=== PATIENT | female | born 1995 | race African-American/Black ===

== ENCOUNTER 2019-02-24 19:19 | Outpatient (CLI) | payer OTHER ==
[~2019-02-24] VITALS: Ht 175.3 cm; Wt 72.2 kg
[2019-02-24 20:58] VITALS: BP 112/63
[2019-02-24 22:12] LABS: APPEARANCE, URINE CLEAR (CLEAR); BACTERIA, URINE AUTO NEGATIVE (NEGATIVE); BILIRUBIN, URINE AUTO NEGATIVE (NEGATIVE); BLOOD, URINE BLOOD NEGATIVE (NEGATIVE); COLOR, URINE YELLOW (YELLOW); GLUCOSE, URINE (UA) AUTO NEGATIVE (NEGATIVE); KETONE, URINE AUTO NEGATIVE (NEGATIVE); LEUKOCYTE ESTERASE, URINE AUTO NEGATIVE (NEGATIVE); MUCUS, URINE SMALL (NEGATIVE); NITRITE, URINE AUTO NEGATIVE (NEGATIVE); PROTEIN, URINE AUTO NEGATIVE (NEGATIVE); RBC, URINE AUTO 0 /HPF (0-3); SPECIFIC GRAVITY URINE AUTO 1.015 (1.002-1.035); SQUAMOUS EPITHELIAL CELL UR AU 1 /HPF (0-6); UROBILINOGEN, URINE AUTO 0.2 mg/dL (0.0-2.0); WBC, URINE AUTO 2 /HPF (0-3)
[2019-02-24 22:36] VITALS: BP 110/62
[2019-02-24] MEDS ORDERED: FLUCONAZOLE 50MG TABLET PO ONE (22:45)
--- NOTE | 2019-02-24 22:58 | IPNPDOC ---
Text Note Date of Service The patient was seen on 02/24/19. NOTE OB Considerations: - Transfer of Care from [facility] [place] at 31wks - Anemia: on PO Fe, needs CBC Silva is a 24yo at 31+5wks by 1st trimester US (SHERON 23Apr2019) presents for uterine cramping. She reports that she and her family have arrived her on the Jan and have scheduled intake tomorrow with first provider appointment on FridaySep. She reports that she started having irregular cramping today. Worse after walking. She reports that she has had a couple of bottles of water today. She reports she has felt cramping irregularly but q2- 11min. She reports some mucous-white discharge, denies vaginal itching, recent intercourse, dysuria, vaginal bleeding, LOF, or fever. Reports active movement. OBH: G1: 2016, term, 6lbs 8oz G2: Current GYNH: Denies STIs, abnormal paps NKDA PMH: Denies PSH: Denies Meds: PNV, Fe SoH: , former smoker (quit with ), denies alcohol, drugs FH: MGM: DM, HTN, Breast and Colon Cancer, Maternal Aunt: Breast Cancer, DM, HTN, Paternal Grandmother: DM, Paternal Aunt: Breast Cancer, Paternal Grandfather: Colon Cancer VS: Reviewed, Afebrile, normotensive, nontachycardic GEN: WNWD, NAD ABD: Soft, Gravid, NT EXT: No edema SSE: Multip appearing external cervical os, small amount thick white discharge, no pooling, no bleeding, no lesions DCE: 06/26/-3, repeat after 3 hours, unchanged Microscopy: Wet prep/TALITA No clue cells, mod yeast, no trich FHR: 140bpm, moderate variability, + accelerations (10x10), - decelerations [place]: uterine irritability A/P: SIUP at 31wks with uterine irritability/cramping. NST reactive for gestational age, toco notable for uterine irritability. DCE unchanged over 3 hours, GC pending, fFN negative, UA negative, Microscopy and Exam suggestive of yeast infection. Will treat with Diflucan 150mg x1. She has close follow up and intake scheduled. - Discussed strict return and PTL precautions - Discussed Kick counts - Encouraged hydration - GC and UCx pending - Keep all scheduled follow ups All questions answered to patient's apparent satisfaction. Tania Araiza DO VSEstelle, I+O VS, [place], I+O Vital Signs Date Time Temp Pulse Resp B/P (MAP) Pulse Ox O2 Delivery O2 Flow Rate FiO2 02/24/19 20:58 98.3 81 112/63 (79) TANIA ARAIZA DO Feb 24, 2019 22:58
[2019-02-24 23:42] LABS: CHLAMYDIA DNA AMPLIFICATION NEGATIVE (NEGATIVE); GC DNA AMPLIFICATION NEGATIVE (NEGATIVE)
== END 2019-02-24 22:43 | disposition home or self-care (01) ==
LOC: M LDO 19:19
PROVIDERS: ATTEND Obstetrics & Gynecology
DX: O62.2 Other uterine inertia (principal); O47.03 False labor before 37 completed weeks of gestation, third trimester; Z3A.31 31 weeks gestation of pregnancy
CPT/HCPCS: 59025; 81001; 82731; 87086; 87491; 87591; G0378; G0463

== ENCOUNTER 2019-03-28 16:20 | Outpatient (CLI) | payer OTHER ==
[~2019-03-28] VITALS: Ht 175.3 cm; Wt 76.6 kg
[2019-03-28 16:36] VITALS: BP 111/64
[2019-03-28] MEDS ORDERED: IRON325T2 PO (16:58)
[2019-03-28] MEDS ORDERED: PRENTAB9 PO (16:58)
[2019-03-28 17:22] VITALS: BP 107/62
[2019-03-28 18:43] VITALS: BP 115/58
--- NOTE | 2019-03-28 20:47 | HPE ---
DATE OF ADMISSION: 03/28/2019 24-year-old, 2, para 1, LMP 07/12/2016, EDC 04/18/2019 at 37 weeks of gestation, history of contractions and GBS status unknown. PAST HISTORY: September 2015, female, spontaneous vaginal delivery, 6 pounds 8 ounces, uncomplicated. She has a late transfer of care at 33 weeks from [place]. 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 Labs are O+, HIV negative, hepatitis negative, RPR negative, rubella immune. Pap normal. Urine was positive and she was treated. Gonorrhea and chlamydia are negative. 1-hour glucose is not available and the rest of her labs are not available. Blood pressure today is 111/64, respirations 18, pulse 97, temperature 98.7. Urine 1.005, pH 7, negative. On examination, no distress. Symphysis fundus height is 37. No vaginal bleeding or loss. Recently treated a month ago for yeast with Diflucan. Presently, vertex, OA, fingertip, posterior, thick, -3 station. Category one strip. Plan is to give her precautions, keep her here for an hour, if there is no change to send her home. The patient has an appointment 04/05/2019, encouraged to keep that appointment. Should things change, such as decreased movement, premature rupture of membranes or bleeding, she is to return at any time and bring her OB passport with her . Patient and expressed understanding of plan of care. Rest of the examination is unremarkable. Normocephalic, atraumatic. Neck full range of motion. Pupils equal and reactive to light. Distal pulses are symmetric. No evidence of DVT, PE or superficial phlebitis. Chest is clear bilaterally to bases. No wheezes or rhonchi. No CVA tenderness. Abdomen is soft. Uterus is appropriate. Symphysis fundus height. Four quadrant bowel sounds are noted. No rashes, lesions or pruritus. No arthralgia or myalgia. No complaint of joint pain. No complaint of cough, wheeze, shortness of breath or dyspnea on exertion. No nausea, vomiting, diarrhea or constipation. No other issues are noted. Good support at home. In summary, we have a term gestation with uterine irritability, possible Demetrius Luke contractions, discharged undelivered, to followup in the office 04/05/2019. All questions were answered.
== END 2019-03-28 19:15 | disposition home or self-care (01) ==
LOC: M LDO 16:20
PROVIDERS: ATTEND Obstetrics & Gynecology
DX: O62.2 Other uterine inertia (principal); O47.1 False labor at or after 37 completed weeks of gestation; Z3A.37 37 weeks gestation of pregnancy
CPT/HCPCS: 59025; G0378; G0463

== ENCOUNTER 2019-04-05 03:49 | Outpatient (CLI) | payer OTHER ==
[~2019-04-05 03:49] MED LIST: IRON325T2 PO; PRENTAB9 PO
--- NOTE | 2019-04-05 11:30 | HPE ---
DATE OF ADMISSION: 04/05/2019 24-year-old 2, para 1, last menstrual period (LMP) 07/12/2016, estimated date of confinement (EDC) 04/18/2019. 38 and 1 week of gestation, contractions 6-9 minutes apart. No vaginal loss or bleeding. RISK FACTORS: She is a transfer in at 33 weeks. Fragile X carrier, anemia and Glucose tolerance is unknown. PAST HISTORY: In September 2015, after spontaneous labor, spontaneous vaginal delivery of female 6 pounds 8 ounces. No epidural. LABS: O+, HIV negative, hep negative, RPR negative, rubella immune. Pap normal. Urine was positive, test of cure was negative. Treatment was given. Gonorrhea and chlamydia were negative. GBS is negative. 1-hour glucose was unknown. Blood pressure 113/61, respirations 18, pulse 77, temperature 98.3. Urine is 1.010, pH 6 negative and +1 for protein. PHYSICAL EXAMINATION: No distress. Category one strip. Symphysis fundus height is 38. Four-quadrant bowel sounds. Vertex presenting 2 cm posterior, thick, -3 station. No vaginal loss or bleeding or show. The patient was given precautions regarding labor, also rehydration. The fact that she chews ice because she is anemic does not help to hydrate her and she was encouraged to drink fluids. The patient has an appointment to followup this morning 0745 with . The patient was discharged undelivered.
== END 2019-04-05 05:52 | disposition home or self-care (01) ==
LOC: M LDO 03:49
PROVIDERS: ATTEND Obstetrics & Gynecology
DX: O47.1 False labor at or after 37 completed weeks of gestation (principal); Z3A.38 38 weeks gestation of pregnancy
CPT/HCPCS: 59025; G0378; G0463

== ENCOUNTER 2019-04-06 08:24 | Inpatient (IN) | payer OTHER ==
[2019-04-06] VITALS (14 sets, daily range): BP systolic 94–136; BP diastolic 56–84
[~2019-04-06] VITALS: Ht 170.2 cm; Wt 77.5 kg
[2019-04-06] MEDS ORDERED: LACTATED RINGER'S 1000 ML IV STA (08:30)
[2019-04-06 09:40] LABS: HEMOGLOBIN 8.1 g/dl (12.0-15.5); MEAN CORPUSCULAR HEMOGLOBIN 28.1 pg (27.0-33.0); MEAN CORPUSCULAR VOLUME 93.8 fl (80.0-96.0); PLATELET COUNT, AUTOMATED 214 10^3/uL (150-450); RED BLOOD COUNT 2.88 10^6/uL (4.00-5.40); WHITE BLOOD COUNT 4.6 10^3/uL (4.0-10.0)
--- NOTE | 2019-04-06 12:14 | HPEPDOC ---
Obstetrical History & Physical General Date of Admission Apr 06, 2019 at 08:54 History of Present Illness Ms. Simon is a 24yo at 38+2wks; she presents to LND with c/o ROM of clear fluid this AM at 0130. She reports +FM, some intermittent contractions; she denies VB. Ms. Simon is carrier of Fragile X syndrome; her is complicated by anemia. She is GBS Negative, HIV negative, blood type O Positive. Chief Complaint: LOF, term Information Provided By: Patient Age: 24 : 2 Term: 1 Pre-term: 0 Abortions: 0 Livin Care Care: Good Care Dating Final EDC: Apr 18, 2019 Final EDC for Daily Update: Apr 18, 2019 Final EDC by: LMP, 1st trimester (US) (11+1wks on 09/08/2018) Antepartum Course Height (inches): 69 Pre- weight (lbs.): 127 Past Medical History Past Obstetrical History : Past Obstetrical History: Multigravida Date of Delivery: Sep 23, 2015 Gestation: 38 Type of Delivery: Spontaneous Vaginal Del. Weight of (grams): 2948 Complications: No MEDICAL RECORDS CUSTODIAN History: No pertinent history Past Medical History Medical History Anemia Carrier Fragile X Syndrome Surgical History: Thor teeth Family History Significant Family History: No pertinent family hx Social History Marital Status: Single Family situation: Spouse/partner home Psychosocial History: No pertinent psych hx * Smoker: non-smoker Alcohol: Denies Drugs: denies Imunizations Tdap status: current Allergies Coded Allergies: No Known Allergies (Verified Allergy, Unknown, 02/24/19) Medications Scheduled Ferrous Sulfate (Iron) 325 Mg Tablet, 1 TAB PO DAILY No.137/Iron/Folic Acd ( Vitamin Tablet) 1 Each Tablet, 1 TAB PO DAILY Physical Examination Physical Examination GENERAL: Alert and oriented times three. BREAST: . ABDOMEN: Gravid and non-tender to touch. FETUS: VTX by SVE; EFW 2700 by Allan. HEART RATE: Regular rate.. LUNGS: No labored breathing. EXTREMITIES: No edema. Vital Signs/I&O O: VSS, Afebrile FHR 130s, moderate variability, + accels, intermittent variable decels CTX: pt reports intermittent, none observed by [place] VE: 3/-1, VTX, clear amniotic fluid present Vital Signs Date Time Temp Pulse Resp B/P (MAP) Pulse Ox O2 Delivery O2 Flow Rate FiO2 04/06/19 11:10 97.6 74 16 94/59 (71) Room Air Laboratory Data 24H LABS Laboratory Tests 2 04/06/19 08:51: Serology Scanned Report Hepatitis B Testing 04/06/19 09:30: Nucleated Red Blood Cells % (auto) 0.0 CBC/BMP Laboratory Tests 04/06/19 09:30 Pertinent Laboratoy Data Blood Type: O+ RBC Antibody Screen: Negative HIV: Negative Hepatitis B: Negative Rapid Plasma Reagin: Nonreactive Group B Streptococcus: Positive Cystic Fibrosis: Negative Anatomy Ultrasound Ultrasound Date: Nov 26, 2018 Normal Anatomy: No (uspect dilate third ventricle, cerebellar notching identified, bilateral choroid plexus cysts, partil premature placental separation) Placenta Previa: No (Low Lying) Estimated Weight (grams): 285 Other Ultrasounds 02/03/2019: Growth US at 28+5 week [id number], posterior placenta, cerebellar notching still noted; BPP 01/07 Steroid Therapy Steroid Therapy: No Assessment/Plan Assessment A: Ms. Simon is a 24yo at 38+2wks admitted to LND for PROM, Category II FHT for intermittent variable decels, otherwise reassuring. Pt noted to be anemic (H/H 8.1/27.0). Plan P: Admit to LND, consented for admission PIV x2 started, admission labs drawn T&C 2 units for PPH Risk of 2 expectant management Allow pt to eat lunch Will reassess 2 hours after pt eats; consider augmentation at this time Consult with OB as indicated PRITESH ESCOBAR CNM Apr 06, 2019 12:14
[2019-04-06] MEDS ORDERED: LR 1,000 ML IV SCH (16:22)
[2019-04-06] MEDS: OXYTOCIN DRIP 30 UNITS in IV 1 EA IV SCH ×2 (16:37→16:40)
--- NOTE | 2019-04-06 16:39 | IPNPDOC ---
Obstetrical Progress Note Date of Service Apr 06, 2019 Subjective 24yo at 38+3wks, currently at 15 hours ROM. Ms. Simon is comfortable, only reporting intermittent contractions; still leaking clear fluids and denies any concerns at this time. Objective O: VSS, afebrile SVE at 1615: 3/70/-1, posterior FHR 130s, moderate variability, + accels, variable decelerations observed during contractions CTX: occassional Vital Signs Date Time Temp Pulse Resp B/P (MAP) Pulse Ox O2 Delivery O2 Flow Rate FiO2 04/06/19 13:26 97.5 94 18 104/60 (75) Room Air Assessment Heart Rate Tracing: Category II Tocometer Contractions: Yes Frequency: irregular, less than 9 min/apart Strength: resting tone palp/soft Assessment and Plan Status: Reassuring Group B Streptococcus: Negative Anticipate: Vaginal Delivery Additional Comments A: PROM x15 hours, afebrile, VSS; Not in labor and minimal progress; Category II FHT d/t variable decelerations P: Monitor for s/sx of [place] Continuous EFM x2 Start pitocin per low dose protocol Interventions PRN for Category II FHT Reassess in 4 hours or sooner PRN Anticipate Consult with OB as indicated PRITESH ESCOBAR CNM Apr 06, 2019 16:39
[2019-04-06] MEDS ORDERED: OXYTOCIN DRIP 30 UNITS in IV 1 EA IV SCH (19:37)
[2019-04-06] MEDS ORDERED: ACETAMINOPHEN TAB 650MG DOSE (2X325MG) PO PRN (19:45)
[2019-04-06] MEDS ORDERED: DIBUCAINE 1% OINTMENT 30GM TOP PRN (19:45)
[2019-04-06] MEDS ORDERED: ACETAMINOPHEN 500 MG TAB PO PRN (19:45)
[2019-04-06] MEDS ORDERED: IBUPROFEN 600 MG TAB PO PRN (19:45)
[2019-04-06] MEDS ORDERED: DOCUSATE SODIUM 100 MG CAP PO PRN (19:45)
[2019-04-06] MEDS ORDERED: RHOGAM 300 MCG (1500 IU) INJ (J2790) IM SCH (19:45)
[2019-04-06] MEDS ORDERED: MEASLES,MUMPS,RUBELLA VACCINE INJ (MMR-II) (90707) SC SCH (19:45)
--- NOTE | 2019-04-06 20:01 | DNPDOC ---
[facility] Delivery Note Delivery Note DATE OF DELIVERY: April 06, 2019 PREDELIVERY DIAGNOSIS: 24yo at 38+3wks, PROM POST DELIVERY DIAGNOSIS: Delivered. PROCEDURE: TENNIS DIRECTOR: PIETRO Escobar ANESTHESIA: None ESTIMATED BLOOD LOSS: 150mL. FINDINGS: 2540g Male infant, Score 9/9, nuchal cord x1. DELIVERY SUMMARY: Ms. Simon quickly progressed to C/C/+3 with strong urge to push. When pt was ready, she effectively pushed to deliver a viable female infant over a protected perineum. head delivered MARK and restituted to LOT. Nuchal cord x1 easily reduced. Right anterior shoulder delivered with ease followed by left posterior shoulder, then remainder of body delivered to maternal abdomen where she was dried and stimulated. Once cord stopped pulsating, clamped x2 and cut by FOB; cord blood collected for type and john. Placenta delivered spontaneously and appeared intact, 3VC. Upon inspection of vagina, perineum, and cervix, all intact. EBL 150mL. Family bonding well; anticipate uncomplicated PP course PRITESH ESCOBAR CNM Apr 06, 2019 20:01
[2019-04-06] MEDS ORDERED: METHYLERGONOVINE MALEATE 0.2 MG/ML VIAL (J2210) IM STA (20:25)
--- NOTE | 2019-04-07 07:46 | IPNPDOC ---
Progress Note Date of Service: Apr 07, 2019 Day#: 1 Progress Note PPD 1 SUBJECT: Silva is a 24yo [id number] s/p uncomplicated term after presenting with PROM, delivering the evening of 04/06/19. She is doing well day #1. She has been ambulating, voiding spontaneously without issue and tolerating regular diet. Baby is under bili light. Reports lochia is like a normal period. No f/c/n/v/SOB/CP. OBJECTIVE: VITAL SIGNS: Within normal limits, afebrile. Alert and oriented times three. Abdomen: Fundus firm at U-2. Soft, NTTP. ASSESSMENT: Silva is a 24yo [id number] s/p uncomplicated term after presenting with PROM, delivering the evening of 04/06/19. She is doing well day #1. Vitals within normal limits, afebrile, hemodynamically stable with no evidence of infection. PLAN: 1. Routine care 2. Tylenol and Motrin for pain. 3. Encourage ambulation. 4. Regular diet 5. Anticipate discharge tomorrow Dr. Medina Hercules MD VS, I&O, 24H, [facility] Vital Signs/I&O Vital Signs Date Time Temp Pulse Resp B/P (MAP) Pulse Ox O2 Delivery O2 Flow Rate FiO2 04/06/19 21:45 98.9 73 18 112/64 (80) Room Air I&O- Last 24 Hours up to 6 AM 04/07/19 06:00 Intake Total 1610 ml Output Total 1850 ml Balance -240 ml Laboratory Data 24H LABS Laboratory Tests 2 04/06/19 08:51: Serology Scanned Report Hepatitis B Testing 04/06/19 09:30: Nucleated Red Blood Cells % (auto) 0.0 CBC/BMP Laboratory Tests 04/06/19 09:30 Medina Hercules MD Apr 07, 2019 07:46
[2019-04-07] MEDS: IBUPROFEN 800 MG TAB PO PRN (07:55)
[2019-04-07] MEDS: PRENATAL VITAMINS CHEWABLE TABLET PO SCH (07:55)
[2019-04-07 17:54] VITALS: BP 120/60
[2019-04-08 06:03] VITALS: BP 115/61
--- NOTE | 2019-04-08 06:56 | IPNPDOC ---
Progress Note Date of Service: Apr 08, 2019 Day#: 2 Progress Note SUBJECT: Patient is a 24 yo s/p ppd #2. Patient without concerns. D enies dizziness. Baby is on bili lights. She has been ambulating, voiding spontaneously without issue and tolerating regular diet. Breast feeding without issue. lochia is like normal period. she is not interested in contraceptive. OBJECTIVE: VITAL SIGNS: Within normal limits, afebrile. Alert and oriented times three. Abdomen: Fundus firm at U-2. Soft, NTTP. LE: no edema/erythema/tenderness A/P ppd #2, doing well. cbc pending this AM. encourage BF. discussed contraceptive. recommend at least 12 months prior to being again. continue routine ppc. d/c today. do Agnes VS, I&O, 24H, Fishbone Vital Signs/I&O Vital Signs Date Time Temp Pulse Resp B/P (MAP) Pulse Ox O2 Delivery O2 Flow Rate FiO2 04/08/19 06:03 98.3 71 18 115/61 (79) 97 Room Air SRINI AZUL DO Apr 08, 2019 06:55
--- NOTE | 2019-04-08 06:58 | OBDS ---
[facility]st[place] Dis[place] Sum. Obstetrical Discharge Summary Date: Apr 08, 2019 : 2 Term: 2 Pre-term: 0 Abortions: 0 Livin VDRL: Non-Reactive Rh: Positive Sex: Male Infant Weight: grams (2540g) A/P, Post Course List any complications Admission diagnosis: gravid @ 38+3wks premature ruptured of membranes at term anemia Discharge diagnosis: spontaneous vaginal delivery anemia Condition at Discharge: stable Discharge Instructions: Home Activity: as tolerated Diet: regular Medications: filled at [facility] Follow-up: 6-8wks visit Hospital course: Patient admitted at 38+3wks for ruptured of membranes. She progressed to have a spontaneous vaginal delivery. course uncomplicated and patient discharged home on day #2. SIRNI AZUL DO Apr 08, 2019 00:17
[2019-04-08 07:14] LABS: HEMATOCRIT 26.5 % (36.0-47.0); HEMOGLOBIN 7.8 g/dl (12.0-15.5); MEAN CORPUSCULAR HEMOGLOBIN 27.9 pg (27.0-33.0); MEAN CORPUSCULAR HGB CONC 29.4 g/dl (32.0-36.5); MEAN CORPUSCULAR VOLUME 94.6 fl (80.0-96.0); PLATELET COUNT, AUTOMATED 219 10^3/uL (150-450); WHITE BLOOD COUNT 4.6 10^3/uL (4.0-10.0)
[2019-04-08] MEDS ORDERED: FERROUS SULFATE 325MG TAB PO SCH (09:00)
[2019-04-08] MEDS: PRENATAL VITAMINS CHEWABLE TABLET PO SCH (09:35)
[2019-04-08] MEDS ORDERED: INFLUENZA QUADRIVALENT PF VACCINE 0.5ML SYRINGE (90686) IM ONE (12:00)
[2019-04-08] MEDS: IBUPROFEN 800 MG TAB PO PRN (13:19)
== END 2019-04-08 14:00 | disposition home or self-care (01) | DRG 807 ==
LOC: M LDO 08:24 → M LDI 08:54 → M OBS 21:59
PROVIDERS: ADMIT Registered Nurse Maternal Newborn; ATTEND Registered Nurse Maternal Newborn
PROC: 10E0XZZ Delivery of Products of Conception, External Approach (ICD-10-PCS; principal; 2019-04-06)
DX: O42.02 Full-term premature rupture of membranes, onset of labor within 24 hours of rupture (principal); Z37.0 Single live birth; Z3A.38 38 weeks gestation of pregnancy; O99.02 Anemia complicating childbirth; D64.9 Anemia, unspecified; O69.81X0 Labor and delivery complicated by cord around neck, without compression, not applicable or unspecified

== ENCOUNTER 2019-05-10 21:53 | Emergency (ER) | payer OTHER ==
[~2019-05-10] VITALS: Ht 175.3 cm; Wt 68.6 kg
[2019-05-10] MEDS ORDERED: IBUP80TA PO (22:05)
[2019-05-11] MEDS ORDERED: NS 1,000 ML IV ONE
[2019-05-11] MEDS ORDERED: diphenhydrAMINE INJ 50MG/ML VIAL (J1200) IV ONE
[2019-05-11] MEDS ORDERED: METOCLOPRAMIDE INJ 10MG/2ML VIAL (J2765) IV ONE
[2019-05-11] MEDS ORDERED: ACETAMINOPHEN 325 MG TAB PO ONE
[2019-05-11 00:28] LABS: EOS % 0.8 % (0.0-3.0); HEMATOCRIT 30.6 % (36.0-47.0); HEMOGLOBIN 9.7 g/dl (12.0-15.5); LYMPH # 1.2 10^3/uL (1.5-5.0); LYMPH % 48.9 % (24.0-44.0); MEAN CORPUSCULAR HEMOGLOBIN 28.9 pg (27.0-33.0); MEAN CORPUSCULAR HGB CONC 31.7 g/dl (32.0-36.5); MEAN CORPUSCULAR VOLUME 91.1 fl (80.0-96.0); MONO # 0.2 10^3/uL (0.0-0.8); MONO % 8.9 % (0.0-5.0); NEUTROPHILS % 41.4 % (36.0-66.0); PLATELET COUNT, AUTOMATED 206 10^3/uL (150-450); RED BLOOD COUNT 3.36 10^6/uL (4.00-5.40); WHITE BLOOD COUNT 2.4 10^3/uL (4.0-10.0)
--- NOTE | 2019-05-11 01:39 | REPVR ---
PROCEDURE INFORMATION: Exam: CT Head Without Contrast Exam date and time: 05/10/2019 11:54 PM Age: 24 years old Clinical history: Pain; Headache not specified; Additional info: Right lateral vision double vision, R orbital MERRITT TECHNIQUE: Imaging protocol: Computed tomography of the head without contrast. Radiation optimization: All CT scans at this facility use at least one of these dose optimization techniques: automated exposure control; mA and/or kV adjustment per patient size (includes targeted exams where dose is matched to clinical indication); or iterative reconstruction. COMPARISON: No relevant prior studies available. FINDINGS: Brain: There is no evidence for an acute large vessel territorial infarct, intracranial hemorrhage, mass, mass effect, or herniation. The cortical gyration pattern, basal ganglia, thalami, and cerebellum are normal in appearance. Brainstem: Unremarkable. Midline shift: There is no midline shift. Ventricles: Normal. No ventriculomegaly. Bones/joints: Unremarkable. No acute fracture. Sinuses: Visualized sinuses are well aerated. No fluid levels. Mastoid air cells: Visualized mastoid air cells are well aerated. Auditory system: There are soft tissues opacities in the right external auditory canal, which likely represent cerumen. Soft tissues: Unremarkable. IMPRESSION: No acute intracranial abnormality. Electronically signed by: Clayton Frazier On 05/11/2019 01:39:30 AM
[2019-05-11] MEDS ORDERED: FLUORESCEIN OPHTH 1 MG STRIP OD ONE (02:00)
[2019-05-11] MEDS ORDERED: TETRACAINE 0.5% OPHTH SOLN 4ML OD ONE (02:00)
[2019-05-11] MEDS ORDERED: methylPREDNISolone INJ 125 MG/2 ML VIAL (J2930) IV ONE (02:45)
[2019-05-11] MEDS ORDERED: methylPREDNISolone 1,000 MG, VIAL MATE ADAPTER 1 EACH in D5W 250 ML IV ONE (03:00)
[2019-05-11] MEDS ORDERED: PROHANCE 279.3MG/ML 15ML VIAL (A9576) As Ordered ONE (04:26)
--- NOTE | 2019-05-11 06:25 | REPVR ---
PROCEDURE INFORMATION: Exam: MR Head Without and With Contrast Exam date and time: 05/11/2019 2:35 AM Age: 24 years old Clinical history: Visual disturbance; Additional info: Blurry vision, R/O optic neuritis TECHNIQUE: Imaging protocol: MR of the head without and with intravenous contrast. Contrast material: PROHANCE; Contrast volume: 13 ml; Contrast route: IV; COMPARISON: MRA BRAIN W/O CONTRAST 2019-05-11 03:44 FINDINGS: Brain: Normal brain volume. No diffusion restriction to suggest acute ischemia or infarct. No abnormal FLAIR parenchymal signal hyperintensities. No gradient susceptibility blooming within the brain parenchyma to suggest hemorrhage. No midline shift, mass, or fluid collection is present. The brainstem, posterior fossa and cervical medullary junction are preserved. No abnormal cerebral enhancement. Ventricles: Normal. No ventriculomegaly. Bones/joints: Unremarkable. Soft tissues: Unremarkable. Sinuses: Normal as visualized. No acute sinusitis. Mastoid air cells: Normal as visualized. No mastoid effusion. Orbits: Unremarkable. IMPRESSION: Unremarkable. Electronically signed by: Baltazar Guzmán On 05/11/2019 06:25:12 AM
--- NOTE | 2019-05-11 06:30 | REPVR ---
PROCEDURE INFORMATION: Exam: MR Angiogram Head Without Contrast, Arteries Exam date and time: 05/11/2019 3:44 AM Age: 24 years old Clinical history: Headache and visual disturbance; Diplopia; Patient HX: R/O optic neuritis TECHNIQUE: Imaging protocol: MR angiogram head without contrast. Exam focused on the arteries. COMPARISON: CT Head without contrast 2019-05-11 00:51 FINDINGS: Right internal carotid artery: Unremarkable. Intracranial segment is patent with no significant stenosis. No aneurysm. Right anterior cerebral artery: Unremarkable. No occlusion or significant stenosis. No aneurysm. Right middle cerebral artery: Unremarkable. No occlusion or significant stenosis. No aneurysm. Right posterior cerebral artery: Unremarkable. No occlusion or significant stenosis. No aneurysm. Right vertebral artery: Unremarkable. No occlusion or significant stenosis. No aneurysm. Left internal carotid artery: Unremarkable. Intracranial segment is patent with no significant stenosis. No aneurysm. Left anterior cerebral artery: Unremarkable. No occlusion or significant stenosis. No aneurysm. Left middle cerebral artery: Unremarkable. No occlusion or significant stenosis. No aneurysm. Left posterior cerebral artery: Unremarkable. No occlusion or significant stenosis. No aneurysm. Left vertebral artery: Unremarkable. No occlusion or significant stenosis. No aneurysm. Basilar artery: Unremarkable. No occlusion or significant stenosis. No aneurysm. IMPRESSION: No acute findings. Electronically signed by: Baltazar Guzmán On 05/11/2019 06:30:12 AM
--- NOTE | 2019-05-11 06:53 | REPVR ---
PROCEDURE INFORMATION: Exam: MR Orbit Without and With Contrast Exam date and time: 05/11/2019 2:35 AM Age: 24 years old Clinical history: Visual changes or disturbances; Double vision (diplopra); Additional info: Blurry vision, R/O optic neuritis TECHNIQUE: Imaging protocol: MR Orbit was performed without and with intravenous contrast. 3D rendering: MIP reconstructed images were created and reviewed. Contrast material: PROHANCE; Contrast volume: 13 ml; Contrast route: IV; COMPARISON: No relevant prior studies available. FINDINGS: Orbits: Asymmetrically prominent right optic nerve sheath. Impression Enhancing right orbital mass involving the right superior oblique muscle, with the muscle belly enlarged. Circumferential enhancing soft tissue within the right orbital apex and around the right optic nerve compressing it. Abnormal circumferential enhancement within the right orbital apex. Mild enlargement and enhancement of the right superior and medial and inferior rectus muscles. Enhancement around the posterior right optic nerve sheath. Lesion is T2 hyperintense. The lesion demonstrates questionable diffusion signal. Right superior oblique muscle mass with demonstratable enhancement, with approximate dimensions of 2 x 0.8 x 1 cm. Sinuses: Unremarkable. No air-fluid levels. Soft tissues: Unremarkable. IMPRESSION: Right superior medial orbital mass measuring 2 cm with evidence of enhancement, T2 hyperintense, and mass effect in the right optic nerve. Differential includes thyroid orbitopathy, lymphoproliferative lesion, metastases, granulomatous disease, or pseudotumor. Electronically signed by: Baltazar Guzmán On 05/11/2019 06:53:15 AM
[2019-05-11] MEDS ORDERED: PRED10TA2 PO (08:38)
[2019-05-11 08:58] VITALS: BP 101/64
--- NOTE | 2019-05-12 13:12 | ED PDOC ---
Post-Departure Follow-Up dr yost, dr zimmerman, [facility] faxed formal report of mri orbits for fu Jessie Diaz MD May 12, 2019 13:12
== END 2019-05-11 09:00 | disposition home or self-care (01) ==
LOC: M ED 21:53
DX: H46.9 Unspecified optic neuritis (principal); F17.210 Nicotine dependence, cigarettes, uncomplicated
CPT/HCPCS: 70450; 70543; 70544; 70553; 80047; 84702; 85025; 96361; 96365; 96366; 96375; 99284; A9576; J1200; J2765; J2930

== ENCOUNTER 2019-05-12 10:07 | Emergency (ER) | payer OTHER ==
[~2019-05-12] VITALS: Ht 175.3 cm; Wt 68.7 kg
[~2019-05-12 10:07] MED LIST changes: +IBUP80TA PO; +PRED10TA2 PO
[2019-05-12] MEDS ORDERED: methylPREDNISolone 1,000 MG, VIAL MATE ADAPTER 1 EACH in D5W 250 ML IV ONE (11:00)
[2019-05-12] MEDS ORDERED: VIAL MATE ADAPTER XX ONE (11:11)
[2019-05-12 12:34] VITALS: BP 121/60
== END 2019-05-12 12:43 | disposition home or self-care (01) ==
LOC: M ED 10:07
DX: H46.9 Unspecified optic neuritis (principal); F17.210 Nicotine dependence, cigarettes, uncomplicated
CPT/HCPCS: 96365; 99283; J2930

== ENCOUNTER 2020-07-12 14:50 | Emergency (ER) | payer OTHER ==
[~2020-07-12] VITALS: Ht 175.3 cm; Wt 70.2 kg
[2020-07-12] MEDS ORDERED: ACETAMINOPHEN 325 MG TAB PO ONE (15:45)
[2020-07-12] MEDS ORDERED: IBUPROFEN 600MG TAB PO ONE (15:45)
[2020-07-12 16:08] LABS: BASO % 0.4 % (0.0-1.0); EOS % 0.4 % (0.0-3.0); HEMATOCRIT 32.7 % (36.0-47.0); HEMOGLOBIN 10.5 g/dl (12.0-15.5); LYMPH # 0.9 10^3/uL (1.5-5.0); LYMPH % 35.5 % (24.0-44.0); MEAN CORPUSCULAR HEMOGLOBIN 30.7 pg (27.0-33.0); MEAN CORPUSCULAR HGB CONC 32.1 g/dl (32.0-36.5); MEAN CORPUSCULAR VOLUME 95.6 fl (80.0-96.0); MONO # 0.2 10^3/uL (0.0-0.8); MONO % 7.5 % (0.0-5.0); NEUTROPHILS # 1.5 10^3/uL (1.5-8.5); NEUTROPHILS % 56.2 % (36.0-66.0); PLATELET COUNT, AUTOMATED 274 10^3/uL (150-450); RED BLOOD COUNT 3.42 10^6/uL (4.00-5.40); WHITE BLOOD COUNT 2.7 10^3/uL (4.0-10.0)
--- OUTSIDE RECORDS SUMMARY | 2020-07-12 16:23 | CCD ---
Author Author [facility] Organization [facility] Address Unknown Phone Unavailable Care Team Providers Care Certified Court/Medical Interpreter Name Role Phone BOB MASTERSON MD Unavailable Unavailable BOB MASTERSON MD Unavailable Unavailable BOB MASTERSON MD Unavailable Unavailable BOB MASTERSON MD Unavailable Unavailable BOB MASTERSON MD Unavailable Unavailable BOB MASTERSON MD Unavailable Unavailable BOB MASTERSON MD Unavailable Unavailable BOB MASTERSON MD Unavailable Unavailable BOB MASTERSON MD Unavailable Unavailable BOB MASTERSON MD Unavailable Unavailable BOB MASTERSON MD Unavailable Unavailable BOB MASTERSON MD Unavailable Unavailable BOB MASTERSON MD Unavailable Unavailable BOB MASTERSON MD Unavailable Unavailable BOB MASTERSON MD Unavailable Unavailable BOB MASTERSON MD Unavailable Unavailable BOB MASTERSON MD Unavailable Unavailable BOB MASTERSON MD Unavailable Unavailable BOB MASTERSON MD Unavailable Unavailable BOB MASTERSON MD Unavailable Unavailable BOB MASTERSON MD Unavailable Unavailable BOB MASTERSON MD Unavailable Unavailable BOB MASTERSON MD Unavailable Unavailable BOB MASTERSON MD Unavailable Unavailable BOB MASTERSON MD Unavailable Unavailable BOB MASTERSON MD Unavailable Unavailable BOB MASTERSON MD Unavailable Unavailable BOB MASTERSON MD Unavailable Unavailable BOB MASTERSON MD Unavailable Unavailable BOB MASTERSON MD Unavailable Unavailable BOB MASTERSON MD Unavailable Unavailable BOB MASTERSON MD Unavailable Unavailable BOB MASTERSON MD Unavailable Unavailable BOB MASTERSON MD Unavailable Unavailable BBO MASTERSON MD Unavailable Unavailable BOB MASTERSON MD Unavailable Unavailable BOB MASTERSON MD Unavailable Unavailable BOB MASTERSON MD Unavailable Unavailable BOB MASTERSON MD Unavailable Unavailable BOB MASTERSON MD Unavailable Unavailable Dhanireddy, Ailyn Unavailable Dhanireddy, Ailyn Unavailable Dhanireddy, Ailyn Unavailable SWAN [id number], T YUMIKO [id number] Unavailable Unavailable SWAN [id number], T YUMIKO [id number] Unavailable Unavailable SWAN [id number], T YUMIKO [id number] Unavailable Unavailable Diana PINTO Unavailable Unavailable GREER, C EDGAR MD Unavailable Unavailable GREER, C EDGAR MD Unavailable Unavailable GREER, C EDGAR MD Unavailable Unavailable GREER, C EDGAR MD Unavailable Unavailable GREER, C EDGAR MD Unavailable Unavailable GREER, C EDGAR MD Unavailable Unavailable GREER, C EDGAR MD Unavailable Unavailable GREER, C EDGAR MD Unavailable Unavailable GREER, C EDGAR MD Unavailable Unavailable GREER, C EDGAR MD Unavailable Unavailable GREER, C EDGAR MD Unavailable Unavailable GREER, C EDGAR MD Unavailable Unavailable GREER, C EDGAR MD Unavailable Unavailable GREER, C EDGAR MD Unavailable Unavailable GREER, C EDGAR MD Unavailable Unavailable GREER, C EDGRA MD Unavailable Unavailable GREER, C EDGAR MD Unavailable Unavailable GREER, C EDGAR MD Unavailable Unavailable GREER, C EDGAR MD Unavailable Unavailable GREER, C EDGAR MD Unavailable Unavailable GREER, C EDGAR MD Unavailable Unavailable GREER, C EDGAR MD Unavailable Unavailable GREER, C EDGAR MD Unavailable Unavailable GREER, C EDGAR MD Unavailable Unavailable GREER, C EDGAR MD Unavailable Unavailable GREER, C EDGAR MD Unavailable Unavailable GREER, C EDGAR MD Unavailable Unavailable GREER, C EDGAR MD Unavailable Unavailable GREER, C EDGAR MD Unavailable Unavailable GREER, C EDGAR MD Unavailable Unavailable GREER, C EDGAR MD Unavailable Unavailable GREER, C EDGAR MD Unavailable Unavailable GREER, C EDGAR MD Unavailable Unavailable GREER, C EDGAR MD Unavailable Unavailable GREER, C EDGAR MD Unavailable Unavailable GREER, C EDGAR MD Unavailable Unavailable GREER, C EDGAR MD Unavailable Unavailable GREER, C EDGAR MD Unavailable Unavailable GREER, C EDGAR MD Unavailable Unavailable GREER, C EDGAR MD Unavailable Unavailable GREER, C EDGAR MD Unavailable Unavailable GREER, C EDGAR MD Unavailable Unavailable GREER, C EDGAR MD Unavailable Unavailable GREER, C EDGAR MD Unavailable Unavailable GREER, C EDGAR MD Unavailable Unavailable GREER, C EDGAR MD Unavailable Unavailable GREER, C EDGAR MD Unavailable Unavailable GREER, C EDGAR MD Unavailable Unavailable GREER, C EDGAR MD Unavailable Unavailable GREER, C EDGAR MD Unavailable Unavailable GREER, C EDGAR MD Unavailable Unavailable GREER, C EDGAR MD Unavailable Unavailable GREER, C EDGAR MD Unavailable Unavailable GREER, C EDGAR MD Unavailable Unavailable GREER, C EDGAR MD Unavailable Unavailable GREER, C EDGAR MD Unavailable Unavailable GREER, C EDGAR MD Unavailable Unavailable GREER, C EDGAR MD Unavailable Unavailable GREER, C EDGAR MD Unavailable Unavailable GREER, C EDGAR MD Unavailable Unavailable GREER, C EDGAR MD Unavailable Unavailable GREER, C EDGAR MD Unavailable Unavailable BHAMRA, S MARS Unavailable Unavailable CINDI, S RIA Unavailable Unavailable Hill, H Yumiko Unavailable Unavailable Hill, H Yumiko Unavailable Unavailable Hill, H Yumiko Unavailable Unavailable Hill, H Yumiko Unavailable Unavailable Hill, H Yumiko Unavailable Unavailable Hill, H Yumiko Unavailable Unavailable Hill, H Yumiko Unavailable Unavailable Hill, H Yumiko Unavailable Unavailable Hill, H Yumiko Unavailable Unavailable Hill, H Yumiko Unavailable Unavailable Hill, H Yumiko Unavailable Unavailable Hill, H Yumiko Unavailable Unavailable Hill, H Yumiko Unavailable Unavailable Hill, H Yumiko Unavailable Unavailable Hill, H Yumiko Unavailable Unavailable Hill, H Yumiko Unavailable Unavailable Hill, H Yumiko Unavailable Unavailable Hill, H Yumiko Unavailable Unavailable Hill, H Yumiko Unavailable Unavailable Hill, H Yumiko Unavailable Unavailable Hill, H Yumiko Unavailable Unavailable Hill, H Yumiko Unavailable Unavailable Hill, H Yumiko Unavailable Unavailable Hill, H Yumiko Unavailable Unavailable Hill, H Yumiko Unavailable Unavailable Hill, H Yumiko Unavailable Unavailable Hill, H Yumiko Unavailable Unavailable Hill, H Yumiko Unavailable Unavailable Hill, H Yumiko Unavailable Unavailable Hill, H Yumiko Unavailable Unavailable Hill, H Yumiko Unavailable Unavailable Hill, H Yumiko Unavailable Unavailable Hill, H Yumiko Unavailable Unavailable Hill, H Yumiko Unavailable Unavailable Hill, H Yumiko Unavailable Unavailable Hill, H Yumiko Unavailable Unavailable Hill, H Yumiko Unavailable Unavailable Hill, H Yumiko Unavailable Unavailable Hill, H Yumiko Unavailable Unavailable Hill, H Yumiko Unavailable Unavailable Hill, H Yumiko Unavailable Unavailable Hill, H Yumiko Unavailable Unavailable Hill, H Yumiko Unavailable Unavailable Hill, H Yumiko Unavailable Unavailable Hill, H Yumiko Unavailable Unavailable Hill, H Yumiko Unavailable Unavailable Hill, H Yumiko Unavailable Unavailable Hill, H Yumiko Unavailable Unavailable Hill, H Yumiko Unavailable Unavailable Hill, H Yumiko Unavailable Unavailable Hill, H Yumiko Unavailable Unavailable Hill, H Yumiko Unavailable Unavailable Re-disclosure Warning The records that you are about to access may contain information from federally-assisted alcohol or drug abuse programs. If such information is present, then the following federally mandated warning applies: This information has been disclosed to you from records protected by federal confidentiality rules (42 CFR part 2). The federal rules prohibit you from making any further disclosure of this information unless further disclosure is expressly permitted by the written consent of the person to whom it pertains or as otherwise permitted by 42 CFR part 2. A general authorization for the release of medical or other information is NOT sufficient for this purpose. The Federal rules restrict any use of the information to criminally investigate or prosecute any alcohol or drug abuse patient.The records that you are about to access may contain highly sensitive health information, the redisclosure of which is protected by Article 27-F of the [facility] Public Health law. If you continue you may have access to information: Regarding HIV / AIDS; Provided by facilities licensed or operated by the [facility] Office of Mental Health; or Provided by the [facility] Office for People With Developmental Disabilities. If such information is present, then the following [facility] mandated warning applies: This information has been disclosed to you from confidential records which are protected by state law. State law prohibits you from making any further disclosure of this information without the specific written consent of the person to whom it pertains, or as otherwise permitted by law. Any unauthorized further disclosure in violation of state law may result in a fine or fpc sentence or both. A general authorization for the release of medical or other information is NOT sufficient authorization for further disc losure. Allergies and Adverse Reactions Type Description Substance Reaction Status Data Source(s ) Drug Class NO KNOWN ALLERGIES NO KNOWN ALLERGIES [facility] Encounters Encounter Providers Location Date Indications Data Source(s ) Outpatient Attender: FRANCESCA SPAINENAAttender: MARS RANKIN [id number] 01/06/2020 12:00:00 AM EDT - 01/06/2020 04:04:17 PM EDT Unspecified disorder of eye and adnexa [facility] Unspecified disorder of eye and adnexa Outpatient Attender: YUMIKO COHEN [id number] 01/04/2020 1 2:00:00 AM Health system Outpatient Attender: EDGAR GREER MDReferrer: YUMIKO COHEN [id number] 11/17/2019 12:00:00 AM EDT - 11/17/2019 03:37:00 PM Health system Outpatient Attender: MARS RANKIN [id number] 12:00:00 AM EDT - 11/12/2019 12:00:00 AM EDT Unspecified chronic inflammatory disorders of orbit [facility] 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 Outpatient Attender: EDGAR GREER MDReferrer: YUMIKO COHEN [id number] 11/03/2019 12:00:00 AM EDT - 11/03/2019 11:53:14 AM EDT Lymphocytopenia [facility] Lymphocytopenia Outpatient Attender: RIA PUENTEReferrer: Yumiko Bhardwaj [id number] 11/01/2019 12:00:00 AM EDT - 11/01/2019 02:34:20 PM EDT [facility] Outpatient Attender: Ailyn MarReferrer: Yumiko Bhardwaj [id number] 10/18/2019 12:00:00 AM EDT - 10/18/2019 12:56:38 PM EDT Unspecified papilledema [facility] Unspecified papilledema Outpatient Attender: YUMIKO COHEN [id number]: YUMIKO HURD N [id number] 10/18/2019 12:00:00 AM EDT - 10/19/2019 12:00:00 AM EDT 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 Outpatient Attender: BOB MASTERSON MD Main office [facility]3] 09/09/2019 11:00:00 AM EDT [facility] ([facility]) Outpatient 05/19/2019 08:08:00 PM [facility] Radiology Imaging Medications Medication Brand Name Start Date Product Form Dose Route Admi nistrative Instructions Pharmacy Instructions Status Indications Reaction Description Data Source(s) Proparacaine hydrochloride 5 MG/ML Ophth almic Solution proparacaine (ALCAINE) 0.5 % ophthalmic solution 1 drop proparacaine (ALCAINE) 0.5 % ophthalmic solution 1 drop 11/01/2019 02:15:00 PM EDT 1 [drp] Both Eyes completed 1 drop, Both Eyes, Once, 11/01/19 at 1415, For 1 dos e [facility] Medication administered onsite Insurance Providers Payer name Policy type / Coverage type Policy ID Covered constitution party ID Covered constitution party's relationship to waldron Policy Waldron Plan Information [facility] [id number] U [id number] Self [id number] [facility] O [id number] S [id number] SELF PAY Problems, Conditions, and Diagnoses Code Display Name Description Problem Type Effective Dates Data Source(s) H57.9 Unspecified disorder of eye and adnexa U nspecified disorder of eye and adnexa Diagnosis 01/06/2020 03:21:46 PM EDT [facility] 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 Diagnosis 11/11/2019 10:41:04 AM EDT U [facility] D72.810 Lymphocytopenia Lymphocytopenia Diagnosis 11/03/2019 10:3 2:16 AM EDT [facility] 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 10/18/2019 01:00:00 PM EDT [facility] H47.10 Unspecified papilledema Unspecified papilledema Diagno sis 10/18/2019 10:35:23 AM EDT [facility] Surgeries/Procedures Procedure Description Date Indications Data Source(s) URINE RANDOM TP/CRE RATIO URINE RANDOM TP/CRE RATIO Routine 11/11/2019 11:41 AM EDT Chronic orbital inflammation 11/11/2019 03:41:00 PM EDT Automatic Gluing Machine Operator tamika [facility] Chronic orbital inflammation URNLS DIP STICK/TABLET REAGENT AUTO MICROSCOPY URINALYSIS W ITH MICROSCOPIC Routine 11/11/2019 11:41 AM EDT Chronic orbital inflammation 11/11/2019 03:41:00 PM EDT Automatic Gluing Machine Operator tamika orbital [facility] Chronic orbital inflammation SEDIMENTATION RATE RBC AUTOMATED SEDIMENTATION RATE, AUTOMATED Routine 11/11/2019 11:41 AM EDT Chronic orbital inflammation 11/11/2019 03:41:00 PM EDT Automatic Gluing Machine Operator tamika orbital [facility] Chronic orbital inflammation BLOOD COUNT COMPLETE AUTO&AUTO DIFRNTL WBC COUNT CBC AND DIFFER ENTIAL Routine 11/11/2019 11:41 AM EDT Chronic orbital inflammation 11/11/2019 03:41:00 PM EDT Automatic Gluing Machine Operator tamika orbital [facility] Chronic orbital inflammation C-REACTIVE PROTEIN INFLAMMATORY C-REACTIVE PROTEIN (CRP) Routin e 11/11/2019 11:41 AM EDT Chronic orbital inflammation 11/11/2019 03:41:00 PM EDT Automatic Gluing Machine Operator tamika orbital inflammation [facility] Chronic orbital inflammation THYROID STIMULATING HORMONE TSH TSH Routine 11/11/19 20 11:41 AM EDT Chronic orbital inflammation 11/11/2019 03:41:00 PM EDT Automatic Gluing Machine Operator tamika orbital inflammation [facility] Chronic orbital inflammation COMPREHENSIVE METABOLIC PANEL COMPREHENSIVE METABOLIC PANEL Rou stacey 11/11/2019 11:41 AM EDT Chronic orbital inflammation 11/11/2019 03:41:00 PM EDT Automatic Gluing Machine Operator tamika orbital inflammation [facility] Chronic orbital inflammation GAMMAGLOBULIN IGA IGD IGG IGM EACH IMMUNOGLOBULIN ASSAY STAT 11/03/2019 11:56 AM EDT Lymphocytopenia 11/03/2019 03:56:00 PM EDT Lymphocytopenia [facility] Lymphocytopenia IAAD EIA HIV-1 AG W/HIV-1&HIV-2 ANTBDY SINGLE HIV AG AB COMBO S CREEN Routine 11/03/2019 11:56 AM EDT Lymphocytopenia 11/03/2019 03:56:00 PM EDT Lymphocytopenia [facility] Lymphocytopenia CERULOPLASMIN CERULOPLASMIN STAT 11/03/2019 11:56 AM EDT Lymphocytopenia 11/03/2019 03:56:00 PM EDT Lymphocytopenia [facility] Lymphocytopenia ACUTE HEPATITIS PANEL HEPATITIS PANEL, ACUTE STAT 11/03/19 11:56 AM EDT Lymphocytopenia 11/03/2019 03:56:00 PM EDT Lymphocytopenia [facility] Lymphocytopenia BLOOD COUNT COMPLETE AUTO&AUTO DIFRNTL WBC COUNT CBC AND DIFFER ENTIAL STAT 11/03/2019 11:56 AM EDT Lymphocytopenia 11/03/2019 03:56:00 PM EDT Lymphocytopenia [facility] Lymphocytopenia FOLIC ACID SERUM FOLATE Routine 11/03/2019 11:56 AM EDT Lymphocytopenia 11/03/2019 03:56:00 PM EDT Lymphocytopenia [facility] Lymphocytopenia CYANOCOBALAMIN VITAMIN B-12 VITAMIN B12 STAT 11/03/2019 1 1:56 AM EDT Lymphocytopenia 11/03/2019 03:56:00 PM EDT Lymphocytopenia [facility] Lymphocytopenia COMPREHENSIVE METABOLIC PANEL COMPREHENSIVE METABOLIC PANEL STA T 11/03/2019 11:56 AM EDT Lymphocytopenia 11/03/2019 03:56:00 PM EDT Lymphocytopenia [facility] Lymphocytopenia BLOOD COUNT COMPLETE AUTO&AUTO DIFRNTL WBC COUNT CBC AND DIFFER ENTIAL Routine 10/18/2019 1:07 PM EDT Inflammatory pseudotumor of right orbit 10/18/2019 05:07:00 PM EDT Inflammatory pseudotumor of right orbit [facility] Inflammatory pseudotumor of right orbit COMPREHENSIVE METABOLIC PANEL COMPREHENSIVE METABOLIC PANEL Rou stacey 10/18/2019 1:07 PM EDT Inflammatory pseudotumor of right orbit 10/18/2019 05:07:00 PM EDT Inflammatory pseudotumor of right orbit [facility] Inflammatory pseudotumor of right orbit PIERCE VISUAL FIELD - OU - BOTH EYES PIERCE VISUAL FIEL D - OU - BOTH EYES Routine 10/18/2019 11:37 AM EDT Inflammatory pseudotumor of right orbit 10/18/2019 03:37:17 PM EDT Inflammatory pseudotumor of right orbit [facility] Inflammatory pseudotumor of right orbit POSTERIOR SEGMENT OCT (OCULAR COHERENCE TOMOGRAPHY) - OU - BOTH EYES POSTERIOR SEGMENT OCT (OCULAR COHERENCE TOMOGRAPHY) - OU - BOTH EYES Routine 10/18/2019 11:37 AM EDT Inflammatory pseudotumor of right orbit 10/18/2019 03:37:11 PM EDT Inflammatory pseudotumor of right orbit [facility] Inflammatory pseudotumor of right orbit Magnetic Resonance W/O Contrast Materials 07/21/2019 1 2:00:00 AM EST [facility] ([facility]) Magnetic Resonance W/O Contrast Materials 07/21/2019 1 2:00:00 AM EST [facility] ([facility]) Magnetic Resonance Angiogtaphy Head W/O Contrast Material(S) 07/21/2019 12:00:00 AM EST [facility] ([facility]) Magnetic Resonance Angiogtaphy Head W/O Contrast Material(S) 07/21/2019 12:00:00 AM EST [facility] ([facility] Magnetic Resonance Angiography Neck W/O Contrast Materials 07/21/2019 12:00:00 AM EST [facility] ([facility] Magnetic Resonance Angiography Neck W/O Contrast Materials 07/21/2019 12:00:00 AM EST [facility] ([facility] Results ID Date Data Source [id number] 01/06/2020 05:23:00 PM EDT [facility] Name Value Range Interpretation Code Description Data Gay rce(s) Supporting Document(s) Progress Note Health system CZRHWr3pDfRLRiUu33/NKTfbZBCcv8GxSYmzXMw5WByfRDYpA8ZhYFT0tI1dBVY6BKyHOaHhIqMoJSK9 lbm [file] dlAvDtUT3FRv9CMpL9YXK4xLLuDc4RMmRcAHYEPvYlZT8RQEm= ID Date Data Source [id number] 01/06/2020 05:22:55 PM EDT [facility] Name Value Range Interpretation Code Description Data Gay rce(s) Supporting Document(s) Progress Note Health system ZDAXIw2yQxZSRzUx75/UWAjwYCBda0RtKMnrVVc2PTxkWFDfM0HgHIN0xD7kHVV9WPrFOvUqAtMyHGN9 lbm [file] ICAgICAgICAgICAgICAgICAgICAgICAgICAgICAgICAgICAgICAgICAgICAgICAgICAgDQogICAgICAg ICAgICAgICAgICAgICAgICAgICAgICAgICAgICAgIC AgICAgICAgICAgICAgICAgICAgICAgICAgICAgICAgICAgICAgICAgICAgICAgICAgICAgICAgICAgIC AgDQogICAgICAgICAgICAgICAgICAgICAgICAgICAgICAgICAgICAgICAgICAgICAgICAgICAgICAgIC AgICAgICAgICAgICAgICAgICAgICAgICAgICAgICAg ICAgICAgICAgICAgDQogICAgICAgICAgICAgICAgICAgICAgICAgICAgICAgICAgICAgICAgICAgICAg ICAgICAgICAgICAgICAgICAgICAgICAgICAgICAgICAgICAgICAgICAgICAgICAgICAgICAgDQogICAg ICAgICAgICAgICAgICAgICAgICAgICAgICAgICAgIC AgICAgICAgICAgICAgICAgICAgICAgICAgICAgICAgICAgICAgICAgICAgICAgICAgICAgICAgICAgIC AgICAgDQogICAgICAgICAgICAgICAgICAgICAgICAgICAgICAgICAgICAgICAgICAgICAgICAgICAgIC AgICAgICAgICAgICAgICAgICAgICAgICAgICAgICAg ICAgICAgICAgICAgICAgDQogICAgICAgICAgICAgICAgICAgICAgICAgICAgICAgICAgICAgICAgICAg ICAgICAgICAgICAgICAgICAgICAgICAgICAgICAgICAgICAgICAgICAgICAgICAgICAgICAgICAgDQog ICAgICAgICAgICAgICAgICAgICAgICAgICAgICAgIC AgICAgICAgICAgICAgICAgICAgICAgICAgICAgICAgICAgICAgICAgICAgICAgICAgICAgICAgICAgIC AgICAgICAgDQogICAgICAgICAgICAgICAgICAgICAgICAgICAgICAgICAgICAgICAgICAgICAgICAgIC AgICAgICAgICAgICAgICAgICAgICAgICAgICAgICAg ICAgICAgICAgICAgICAgICAgDQogICAgICAgICAgICAgICAgICAgICAgICAgICAgICAgICAgICAgICAg ICAgICAgICAgICAgICAgICAgICAgICAgICAgICAgICAgICAgICAgICAgICAgICAgICAgICAgICAgICAg PTp6J0cgODQpZSNeXG6cPUf0Nf9+UTrXNyMoCGF5qz TrnE1XZR3em5HwUEvaWJZqa8UdIDq7QR8YIKWpDHoiPN8TENyayf9CEURfLAIerKPCe6ydKzUgEWK1MK QbQyveWN5NFHLnA5xhzzJzVRPuLCKSJCmoATTEYSenTEVYHVGvTVCyAkKqSiNpSEJjAH3SFPCqH986gw MpZC1SXd9XPtAuHY6zed3PGrLhSBZxAbdWBru5AVfk UG3DpBZwvXSfZHQtAGOHVgDdI9qal6CbFoGvLVXPGHkhDH0Dq8BphPHbHXe+Ep8AUE7vw4PbDUucFUVm LE2ixu2PJGfHHcGcT7XhkZtqFSQjw3hfJMNcXZ9egEYiXVG9FWQtCPJbrFZpQUXrG2vdVZgfsnSzbhIg GF2MGGS4XZzfUw6hCZPiRMTyPwGqEYRSXU7UWGAxWM YqbJKhDVZvONWBEA1LDCgpTEE4NPOykgPnoELqQUlrJP2LUEFeruSwWnRvOKJTKUs+Wd8HRB6sy5GmWN krBrOeBN3hlx0BPJyQBoZnQ8H0cYQqU4N1ZLnnEd9QACVsPMYhQtcjJGEAPIzaEV4ELL4qhxJ6TQ9AnU DkOVOpNAFdsJGwIZo2T26utILoXKiiVY7ABQU+David+ Ru2OXDMlIRSkHKRpQeXpNBIFXfGcW3KbO0SFy6CrE7QaFW10zEyqttZhTMsoBS7CQJ7dOFTgVZGSTF9F rDZikV6fbtLbOOFrQMNTTcYkG60fyLHjVWMnGMY8XTPiOw0TRSTjH2DoqiTnaHvdqyOlXVRiXXNQOM7S YPpbxbLjaHSpyYlsLZ73yXaoDK1IYr7IFxOcEJ2olt 3ArIQuSk3PUGLfAh1BQBJqJIHlTKLfJJA9TJBkOkZwDPckXCUwBTIkYEN2WJJwXHCdCL7AGsWcAGSkUi x5JilqOGIqVNKzou5VKXSrGRCkWHE8FbOmTJFsIUDvXFtxFXHsUVBjERN2VRQlJWHuFQ2ZAdRgUVEmCW B9EcYuGIHtHXGnck3KSLAvLEQwDup1QWTyTACxHGVd TFvqOHCeYVP0ABO1IUCfFMGmRT7MRjNvGPLrKRTrWbAySTKzOQDpfa9CKUOcOZJhMEt8XRChHRSqTMWc GEazSJHcMGF6VKnvAKGrCXBtKX1AAqRaOUWoZDKvFBsbAFNfPLMhdq4REDHpUDPdFdT8JiNkPOKbPDPq YNurHICaPQTdCTIrBAUnNKUqBV8FBvDaCUFjZPRiQD xsQVIpJIAibt9KRMKwGBRoJKDrBaJpZRMlEIJkFNbrVVErRWV9PNV3RXJkLNFxNI4EInWeLEXaFRZ2MG ouNOBjSNJtoc3WTPEyZVMiDQZ7WzSeEWGxEBGpPLvrDSDhICW1NaJ1TESoIKKaVC9JOdEwXJLlNSY1OH YtGOPfHCRtzm7IRTEgCBItFhJ1GnIfIDIjAOMvGMmd XMNjXYX2MaJkARUmSNBmFT1VWrCtUFSfWjl1OMRrWOVhPTYzob7VUBQfAEChLWR5QSBtZGCvKNHjASot ICIkXFJ9LgT7KEFqQLJsLQ3ULsNkTECoObsfCJWhEQJuTOTswv3PGHSwFMMuLREaKLPsPKKbMRWxADvi VZNgGBK9WlG5SHBeMJBjRZ3RGfMrEHPaTjTiSaEuLD FpWCLmgh8HOREnXWOlDFN0NjTsCXXlJLOwWLjgFTOoSLHkIQA7ATHqEPIuTL7VSnLaBCRwCzV5YqUyRW RzXJQxwa0ChTRorEjykc8HPVdTBl6CkJluMDCpRJhvIf3tdJWaBoIzMPTLVg6MuoPfGMZpBGOODUfrWU UaPOadZHUvYCb0GJd2ZslwViG2JFPsZeKuBMgiXxR2 EIW4JcG2EhYzCLImDzQ9NSm5YPLuOWewKsC8GNN5HAChIVs7BsH+YB9qLNf+Oq8Es3GwrsH8zpBaAPrj JBv7JN9JMKHUY7AKBf== ID Date Data Source [id number] 01/06/2020 02:30:44 PM EDT [facility] Name Value Range Interpretation Code Description Data Gay rce(s) Supporting Document(s) Progress Note Health system DVWIEh3aXhQOYaGb62/JKZxeZTXtu8RvVDrsLLl4OJbyMRXaU0KqZQH6dV4gHPS9NVwZGuPcQgCdVLH0 lbm [file] AgICAgICAgICAgICAgICAgICAgICAgICAgICAgICAgICAgICAgICAgICAgICAgICANCiAgICAgICAgIC AgICAgICAgICAgICAgICAgICAgICAgICAgICAgICAg ICAgICAgICAgICAgICAgICAgICAgICAgICAgICAgICAgICAgICAgICAgICAgICAgICAgICAgICAgICAN CiAgICAgICAgICAgICAgICAgICAgICAgICAgICAgICAgICAgICAgICAgICAgICAgICAgICAgICAgICAg ICAgICAgICAgICAgICAgICAgICAgICAgICAgICAgIC AgICAgICAgICANCiAgICAgICAgICAgICAgICAgICAgICAgICAgICAgICAgICAgICAgICAgICAgICAgIC AgICAgICAgICAgICAgICAgICAgICAgICAgICAgICAgICAgICAgICAgICAgICAgICAgICANCiAgICAgIC AgICAgICAgICAgICAgICAgICAgICAgICAgICAgICAg ICAgICAgICAgICAgICAgICAgICAgICAgICAgICAgICAgICAgICAgICAgICAgICAgICAgICAgICAgICAg ICANCiAgICAgICAgICAgICAgICAgICAgICAgICAgICAgICAgICAgICAgICAgICAgICAgICAgICAgICAg ICAgICAgICAgICAgICAgICAgICAgICAgICAgICAgIC AgICAgICAgICAgICANCiAgICAgICAgICAgICAgICAgICAgICAgICAgICAgICAgICAgICAgICAgICAgIC AgICAgICAgICAgICAgICAgICAgICAgICAgICAgICAgICAgICAgICAgICAgICAgICAgICAgICANCiAgIC AgICAgICAgICAgICAgICAgICAgICAgICAgICAgICAg ICAgICAgICAgICAgICAgICAgICAgICAgICAgICAgICAgICAgICAgICAgICAgICAgICAgICAgICAgICAg ICAgICANCiAgICAgICAgICAgICAgICAgICAgICAgICAgICAgICAgICAgICAgICAgICAgICAgICAgICAg ICAgICAgICAgICAgICAgICAgICAgICAgICAgICAgIC AgICAgICAgICAgICAgICANCiAgICAgICAgICAgICAgICAgICAgICAgICAgICAgICAgICAgICAgICAgIC AgICAgICAgICAgICAgICAgICAgICAgICAgICAgICAgICAgICAgICAgICAgICAgICAgICAgICAgICANCj w/iCXrX1ubzMVixqF3K1edNe5FGp4GWJ7os6YfQGTf OWbjgpKeHsnUXtYfBFKoDcvPHce5GNkpVV7YdPLjZ2NaK0ShDIetIX0VGVKyVSGfqFBjJYGjZBEdRhZ2 EPWqWApfAR5CiHPfNXxmCGIlFOTcWB3LGNFaW502kiTiGX9BVr7JQmZlFY4oap6KVIuuNBUwTedAWoc5 EUupOQ3EbJCniBZgKSWcLKLBDaGvK7ejj5ZfEgDiQK XFZKdcEW5Yp6NzoAQiWWh+Xt1KPF3wv1InDLynWFUxUK1gor9YLLqKHqHbU1JifBbuUBWsa5uxLLFuCR 4geAZvVJF4LPMvEwOxwRDMJUX7DV4zMS3THQZ4CLtyQW1xAKDvVGIkZuZ4ZTEHEW0AMGIjBIZxiBKgUA LmUOEMKQ3IRQbmSFJ2WFDjmrRpnFTcIIefCO8PLKQc bnQgMTkgMCBSDQo+Ny0OLD3rf9QdWQogPBEqJD7emh0GEPaOBqLgN8D3vSVtS1A5PUxlHj2CYQAqRPQu QYmvSJQNRJbrGP1KUF6frrS9MU6XuLFcAVRpMOMllVDcDEr1N57weNIpVEoyPJ6FHRK+David+Us1VZHPm LHFpISDeAgXvZVWQSsUpC8UeY9JYy6JuR9OpVW37gK wdztWpFFqfTB6FOU7yGFGnGHZDKR0VsCIwaD4rtfYcKXAiLWTBDmSkK72szNNfYMCyTSA7AULnTf2EYI ItO2SaekAwwGcxvlFmJELhIPRHIG1EVZvgzxTouRXecGpnDD45kOncJN4EMz9JFgGhIU5tqq9YvMTdOh 7KEHBoDv6AWEQeTBGmPFQtOOX6WANcDpAgXYuiOOAl QQIfEVP9OZSmHTVbMK4KBgYhZQJyRJY7AhSaXSYjWOChcy4VXRBlLKPwGFX1TrQgWXRsWXTgZGkhKPXv SDYeAQV3QGCnAIAuSI3KVdUtECDiRDF0MQWgMDYjACSnmw9JGXDyRAYsSTbvDQZwSJOiQOZjUMvfZZTp FNLgWsA0EBRiWNRjSF9WZaYhKYEtAUH7XzCsANQzKK Vdhj8KJQMeFGKbDgC1YKYxCBIiCRQjBGbyORBtHZT8HSz8UHBmUTOkUX6RMmHyGYDgFOSpSIZvJVLpLA Kkyn1JYNZrMNHfYUD4OoFqAJDpWAHbPDrgZILqGZH3SVXlHORnBJLuKU2CAtOwUOPaCOIkLAqjHSQcAP Lfvy2ERTLsSHVqOeS3HkHyOUEoOTExXFrjXXKmPSO6 MgN6IGEoDACqEA7NDhNzHXWhAAR6XOGjSCJuFKNpyc4UVGCzEDUbBxL9ZiVdKBAdVHKgWSshSNGiORH9 XEzfHXGoFCBvWM5DZeGnEEWeBSx3VrTsLLNlGVYzqf4RAUPsLSCgFSxwAZDcFSFySFRsZJk1buKxzZDa CYf8ZW4XY9CtkrEzFwDEHk4Vw429TOZhMGCnRb7MK4 fhKo8zAVCtHJCWKx5FXBd4ONAxSCK2UTSbACYqJAAsIhWpARY2OZI2AMVkMVZ0WMH+AVyfUuZ3Gvq8FQ NuBhP0OcV4BaW2TIOqPsj6CLKsLvR4Jg7dYABWJg9+YGrbwZQboBxeDYNQCwU8TLDsEXsdDTMGYj1Z ID Date Data Source [id number] 12/13/2019 11:15:59 AM EDT [facility] Name Value Range Interpretation Code Description Data Gay rce(s) Supporting Document(s) [facility] WQVTGz4dIzXSFxGi64/BNKsyEUBuf2UfRPahDRm5GKpwROEtK2FdIBY1sU5qTHW2XAoYNyStFqCeKpOp lbm [file] ICAgICAgICAgICAgICAgICAgICAgICAgICAgICAgICAgICAgICAgICAgICAgICAgICAgICAgICAgICAg YCPrJZQnNHYrMB6YHTJgTGRxKQRvKHOrNJPwUQEzJYRwBBYsMPGiOEOfUOPhIIPvXVAkECHrQPXzNVQs ICAgICAgICAgICAgICAgICAgICAgICAgICAgICAgIC BkYIEjUGKdMGPnUVHkYCLuTSClLX3WKOShSQNoYEYrPEEfGJLwTFMmAMAiJZImYUSvNEAwIDJyNLIeYA AgICAgICAgICAgICAgICAgICAgICAgICAgICAgICAgICAgICAgICAgICAgICAgICAgICAgICAgICAgIC JbRC8ABZImMYTdCWPmGVLaGBQsYJBbZLEmTHOnKDYi ICAgICAgICAgICAgICAgICAgICAgICAgICAgICAgICAgICAgICAgICAgICAgICAgICAgICAgICAgICAg UMNcHZNoSVXpWRJlUF1QATTsCGQtLTUgVYQrQABiZNEkYWHzZRVyWVVtEMQaWCPsDJDwIKEkDVVeMCJb ICAgICAgICAgICAgICAgICAgICAgICAgICAgICAgIC ZaIXZsBKWpXJTbEMTsONIjSNPnFZMnAK3MVHAjZOFmRGHpMWXvHSOxSPRrLNEfWJDtMZLoUANfWTGiOJ AgICAgICAgICAgICAgICAgICAgICAgICAgICAgICAgICAgICAgICAgICAgICAgICAgICAgICAgICAgIC KfADOmUY6BMAYfZZUnEIYcFMZgWTWxZLWdEMZyWNBz ICAgICAgICAgICAgICAgICAgICAgICAgICAgICAgICAgICAgICAgICAgICAgICAgICAgICAgICAgICAg KJIiAYGeVQTkHBTeXVTfUT4IUEJjJYUyGWHbPXCmJPLyPWReLPEsCWLmWLZrXSQnWOAvZVWwDXLwHYSe ICAgICAgICAgICAgICAgICAgICAgICAgICAgICAgIC IoRUDoAEBqDZYfZRGoOKAjKHReNXWmCFDhTT3FFPZaEDJcFGSdIEZiAKYqMIEmULQlKQAhHLSeEDPvIB AgICAgICAgICAgICAgICAgICAgICAgICAgICAgICAgICAgICAgICAgICAgICAgICAgICAgICAgICAgIC MmBLRqPTGnGM1FWPEmWWZdYYGtNIDqLMVvCRUpIGJl ICAgICAgICAgICAgICAgICAgICAgICAgICAgICAgICAgICAgICAgICAgICAgICAgICAgICAgICAgICAg KNVkZSTgACCzBNUvMHQxCBYrTE4XFS90hPRsl1E8BHQlDS5ljtj/Hj3TTHemjbNjlTWuPC6SUtZwMN5i eq6UEsIaSF9eis0ZXXcITuYgH6X7tLOnEGRwPEJNMv ZcR12gMActDy30EWygLADtHfYfDOb1Jg7BZyHgH7zxUXJgSiK6DYYrPyTaWLbxQI8Hy8FofXGiUSb+Pg 9IAQ2gj3KkQStzFTOvGT4kzl7BWWyVPeAtY3RemgF3DIXwLMRzTk2QBFZkHSNjeQVcIUQhBDFOEmRnA2 OwxS95GXECAh1+NDpgkwPmZppMOdMjJXHlp4KpRMt2 YL8IKRHrJKj6xNFyWYZmG7Sgq3OkVi28HZWuKezbPE3ja0YxgSNGWJNemfvvPVKzLJPcDu7xIs2rUCHl UGGoSrLwEZLJDX6HTYLfNNDwlLKlXMFjREJLEU7YQQwjKGM7UIBcbaTkiSWcGTgfSF8OJPBmocLdDEhv MCBSDQo+Lg6TPH2aq6SlIOalOAZgPE5wba2ZYYwGRa GmR2I9pOZwW6O1SSanPy9UJWKdKHGhQNrcZQZZTNctVY3JOL6hhgY5DP2TkSStLYPyRMMcjSFqOVu8P4 2trUDqUJfkEI1HVXH+David+Wl9GPZVkHDVvGMZjQwJnAQWZTaKgY2KgP5BPr7DxM9PjCB96pXibacDmUS wrXZ8RPS3jAKYiLWREHY8AhEAhuW3zndCdZBOkEYPD YsBmC49ssXPuBXErDSS6INWcTp6XERIfQ3LppjAjsNblukQjIUBzSJEXOT8TRVyksjMsuRUltXdwLP06 oBhnHA0OTl7EPhIfHP5pnx4VwRNkQb7UWHYyYb4DWLEcQBVtCAMbHSI6MDIoNcTdURaaHJSfFVKzWZB8 OQIsHMDkNW0MChQgGPFfEVi1SMygQMNoQSRmfr9ESO KdILYvPHMrGIGkSIVvJBEzNFgeBLVbXVIzTMG6XTOlVZTuLS2AZpZdVRBvMER2WbPuTNYmEDGxza1UBN ZsABNaVekgBbIyXPSqVBYhLOuyNSDhDBQqBon7YGWsYZRvXE3JTmQiJUSdFEJ8JHZiNVNgNDCael9WMD PzQPGtERL5OoBvJNCeHEOsZGboLENeDDA1LUMlZEMu ZCBsLY5CHuRkTZXwTSOaYjFsXDZnMXGlkb0ZKKWiOAHjZWHaQGOaAANuXKOsSLlgIQQeRVN9UPV9IQRb ENAaBW9CRsIrHWPpXScxARSjFJOoFKInyh9XTUEqAQUwCmB2OWYuTWHcZQZfMTejEEVgGWU7YbX1STJg NUPcET5TYmXlUXMeCIf3TqNzQTGzIOJugz9DGHOgNF NbJVW8XLJxYTElOKVfKGirEWJgMYY1RiNkMKUxMOAvNB8MBiKnVZUaJJf9LHPzUHAsOEGabh5YZWCcXB GpGOxfRpVlVQCiCKFbXWm1jpGcnYYbEBl5WW0OZ1JpsjYaBoPNLu5To832ALPuAHOmWt1EQ4tiMc9xJM LvSSPXAc4BJTz0Wvx1JHCtKME1MxYvYrF0TIgnLKG9 FBLaKXYjLoO6Y4F+EZf4ALf1VMWjAUqkJQNyAWw5N2MxKezwE4GfYGDtEEb7Ho5kNQSWGy9+DQpzdGFy yGltCELBVuPvKOm7HNwtKKYSNw0X ID Date Data Source [id number] 12/13/2019 11:15:54 AM EDT [facility] Name Value Range Interpretation Code Description Data Gay rce(s) Supporting Document(s) [facility] TSFCBc8vCbXHTeDs45/ASEdcLSCke8IzHLorNNm0PPpyDQGoZ9JcJEK2uG6kFKW2JFeWXiAbQxWtKrNv lbm [file] LEATHER TANNER+Oq6HGBQnBJu9R6P9XHDvFFs6B4UIF9WBTHQwPK koHUzqSTAuRBy6L1D0NNYfQ8VBV2Yspihbzw7+ZK6YM55RXOHpZEq0V1H0jEChL4L9aMxAsDC7EU4CNA 8XeFc1rGNiwP8+NF1IA2CQRdKmUJj0G4I0pTOuM0U8lJjTxLW1FO1MBJ5ZvSMeQGVgqxQcSk6rF6OLIH fWUrQSEMT9ZN3EdNApCI1IbTJXK0PlnPUkEx2xQNzd iVTmrY0eHw3sCKmlYS7TBoVAQBtWITT4WG1QyFBsKW5FcHLOL1AnbNQcXe0xHFkatTAaxb4+ML9FPELd Dt9DHk7+HLapgvWxTxeQWvRoJZGyc0RqKYi9MC8UGP2rgJkoIUM7Oy2EhIT8nQGkZ5rFBH7FdALcF43h zRSaBRLxRi2UGsN9bdObmP6FOO75iXFit8P7CEChL8 ejVEbjg73tWBwhJRvEYI4hDLOZIAssGAowZMO6MvQwjncmNPGgXu6XHwHgNFx8sS4yoNX1KKI4AainxP LtIYwxCdMpXuCbUkC3gBfymzy3PAnnUL9oFDeztvaoRZAcSah+IPmnVLSzFJVxMcnAJSDpsC3uoaY3fp EmTVyylMWbIl3is4j3UngwUb7zLg1jPRl3AvVrYiQh DAWqBi1vhN91RUzswzNuVx2XGvViXDL8I9UwMnrGBSR+DVljYHlokLl7lMKxTYXxBv4CVCLjDYHdSIUg ICAgICAgICAgICAgICAgICAgICAgICAgICAgICAgICAgICAgICAgICAgICAgICAgICAgICAgICAgICAg ICAgICAgICAgICAgICAgICAgICAgICAgICAgICAgIA 0KICAgICAgICAgICAgICAgICAgICAgICAgICAgICAgICAgICAgICAgICAgICAgICAgICAgICAgICAgIC LiZKUhTEEhBPQyGTHvSUBfAVShNWRnXOJlRBBcCRMmYXKcLDTxGSQvHS7UWCTfCCJbFOJzNEJmOUVvEX AgICAgICAgICAgICAgICAgICAgICAgICAgICAgICAg FYTmWMKqHMKeDGZsQGBpJHCzJKBsRANvNULiNPVfHJTgAXTvKOMiQLXcCNLpMWNlCIYoXN4PPRCzQNJp ICAgICAgICAgICAgICAgICAgICAgICAgICAgICAgICAgICAgICAgICAgICAgICAgICAgICAgICAgICAg ICAgICAgICAgICAgICAgICAgICAgICAgICAgICAgIC MzLJ2WXLPfHSYsZQHrVESiUSJiGRPhFDBbWRSwUAViRCVcEUDtGLOxZJLmXSSbTGHzYNHeTSCzVUJlVH PyRSBdDGJsWNXvNCDcBZIoOTPnZVImKMEbHLFvLZTsZDYxBVNqHCBaOFOgSJ1IDSLpTTIpDEIwASHzPM AgICAgICAgICAgICAgICAgICAgICAgICAgICAgICAg XEGwQTXgIGLwGIWvCFYzKMHeTZMkTWDxCGYoRNXxGAVdHKFrLWXfAJOyHVZfZKTeRUZlNPCxOO5MDKAq ICAgICAgICAgICAgICAgICAgICAgICAgICAgICAgICAgICAgICAgICAgICAgICAgICAgICAgICAgICAg ICAgICAgICAgICAgICAgICAgICAgICAgICAgICAgIC DdKATgPC6VEMPqAKTbGGXaYXWjGUJtREKaIGIlBWAkXXZaKVArXBQnEENkIVNtLDPuSRHjROUkWWEbZU FlJWXsRJOpTLEdWNWzPARnSDTeYLDdDCEdWSPyTULePALxSHLqIOTmKMMvIDLzLT5BZWZpVLBgQWLuUI AgICAgICAgICAgICAgICAgICAgICAgICAgICAgICAg BANsJYErNBYsVTRzYFSjMBYzPCGfPOJkOIUaSCDuQWRhZNEkWYPcWNFsIDCdLJJzUSGeWRBdEXWfDS8E ICAgICAgICAgICAgICAgICAgICAgICAgICAgICAgICAgICAgICAgICAgICAgICAgICAgICAgICAgICAg ICAgICAgICAgICAgICAgICAgICAgICAgICAgICAgIC UmGOWyERKzLV0LOZ23mEMsj8K0RAWqRY8idfl/Zt3FXAqwgvYobHOsAH0EQyDyXD2jlf5JBdXaGO6xbl 2WXQvLKqViO4K0hOCsCQKhDVKQNvLsG51hVFmsKf90NMujBDMbWdAjOXg9Nv4BUpVtB5hrNEQiMkL1UL HuNwZ5JIZhSiL6NEHkAeXnMPTgEMPrJDDaHCTWMTR7 RSXjXiTdQpNnJLYjIH3GSAYxA656awYsRh1VZj5BWsOeBA0tpx8WIiLgVOEtKajUNra6TIvhZD7TxCWx gNGbGUVsXFYNDcIoA9jto4YmAzWsQTCJKRrnCN0Dy2RglSVoMYz+Qm3UKN7sc8KwQKzvSEYyVV9gca9A IKlMGbTcK7HzhYvrOVYkt2ekIPZwFR4yxLThKVI8EE ifqpZsYV7iUAjmuIxgNcTsNLLsUz1uXn7nPMThGQTsVzUvZRNKRA7WWUYmSRXphZDuZTTcWTOEJF4GYN rcBAS0BRZbllGriNSqRMbeOQ7HZVLfzoHsWtXbWCTRJLg+Bk6IIH7aj9TqVOmiDnCuMU7qyf1PWMvWVq BxH3Q4sQJsX3Y6VAnmEm1TZSYuBBBrRiZwAMEDJJyn ZV5FYL4ckhG7CL7PmRCtUEClTIXubOBkQSk9P21bsNXtUHzqHN7SFFQ+David+Ic6MRUOmXHPjENRfNmKq CXAUMqQvD6PlK3CQu6OyT9SvBP27xFimxnAaQLrmCA3USF8tGBFvNRJZKU6UlIRcbA5nplBeSTFgEGSH QzUxA66pzYEyQHXxRPWoAOWcKl6PITToP4MnlvSpjD jinuLrBBEvCDDDEC9TCQwqbzCsgSHusIneHV06pGakDH9OYh5QFkNiUN2ibo2YuHUbFn3KUNXhYh9VDY UjONLoTYJfPVQ8HNMkFkXtXKnuRFUeBIArMPM2ODXgOWJzGL2FTyIyFNQcGbdfLbDrDTFfCKYzie3KQP YpDEHrHRe6GcXdYDSqJGVxQAkkYGKdLVIuWCM0VRQv JRMbIM6UJhPqTDJnLCD2LkfuPEJzPJBrvb8VENRgLOPyDwq4ZzHnXJPpBPXmEFfhUZSbYYE9AMQkVSOh IQAzZI4QXjEfYFFyVWjaWkxnTFOpYCAkzi7NERDvIMZiHDC5EiBsULXmSXWtMNvrYZDrMBF8KpC8EZXe WPQjIV9HYxYgWWPcHQQwXDhoAUBuZYEdga8ZVWPgQY BjYgP2KHXfLNHtCZCoKGeoEEAcMEE6CHP5XRYmSAWoUZ2SFjWlFIYoBIL7WDWkTBLxSKWrwb3BAZUnGW UmPSf3XVVdBJJgCVMsZAliSBRtMMXvOED5ZCFfBLMxDO7VFbXiNDXaFyX1AgBhFZTeZMYizf4OKBOlCH BqWOb3DIVoPXMiTPJdIBuaUWMvPWTsKyMcFNMoJVPk RY2VThMfMTNcPpU4JyssCYXpANWxqv0TTXDeEPUoHyFkYHHmDMHiPDPzJKucCPBuAHQ8VTicGLYuPNRo AW8QRdXfCHFiHkFsALMxWEQxSKQvbm3ZZXVxCXKrMYG5WFFnXPInOGKtDSpwPIIjUPI4KBQyJMWcTCMc UJ2KKjHrCHVyDrZeMxOdECBoNJIlmm9MGDMwJWRwBn NdJFPvUQNpINUeNLujKASsFCR2Npl6XLHmNKZfUO2MPzIgJOKqBlH8TwUwLMXzXHUxed1IDLRpMVGlAe g6KUViOHBuMVSmQFjaQQNpQPI2SXEbNTTbZKTdBF4JKyWqWEWyObecJDDkUKXgCRAcky1VJCFxHJPgQO F1YiPtZFUqEAMiZXcgTSQzJUOxDAX3OQHqNNHtRN7D AlTvGXUvAESfQGAzOFNcSFTjui5UTTToJZW0YSJ2ScEpJXSeXMPmPDt2urFawYPjPZj0GQ8UB4VpmxVl JitDXs5Xi821HLB2TNOuNm4IH8gxYt8wWCUkHJVGGk2WLOs8QEBhCgA6ZGPxITcoRsE0KpsiPWFyQuWb ZjljODczZTA+JNw5CCC6YWkhMDPiAEDtRoNfYACtVX IaNDQvGPN9QwZtLR4lPFQREk9+PVipcECzsKciKLOSJoQiXKe4HMtiRBTOFx7S ID Date Data Source [id number] 11/28/2019 10:00:04 PM EDT [facility] Name Value Range Interpretation Code Description Data Gya rce(s) Supporting Document(s) [facility] GEJQAg4lLuSDIcGz36/OQBecFJAqs3TuQAogHNb8OFfpXTPbG1OuVYH6sJ2rJSC7BHiJRwGrNoBgXmJ5 lbm [file] AgICAgICAgICAgICAgICAgICAgICAgICAgICAgICAgICAgICAgICAgICAgICAgICAgICAgICAgICAgIC AgICAgICAgICAgICAgICAgICAgICAgICAgICAgICAgICAgICAgICANCiAgICAgICAgICAgICAgICAgIC AgICAgICAgICAgICAgICAgICAgICAgICAgICAgICAg ICAgICAgICAgICAgICAgICAgICAgICAgICAgICAgICAgICAgICAgICAgICAgICAgICANCiAgICAgICAg ICAgICAgICAgICAgICAgICAgICAgICAgICAgICAgICAgICAgICAgICAgICAgICAgICAgICAgICAgICAg ICAgICAgICAgICAgICAgICAgICAgICAgICAgICAgIC ANCiAgICAgICAgICAgICAgICAgICAgICAgICAgICAgICAgICAgICAgICAgICAgICAgICAgICAgICAgIC AgICAgICAgICAgICAgICAgICAgICAgICAgICAgICAgICAgICAgICAgICANCiAgICAgICAgICAgICAgIC AgICAgICAgICAgICAgICAgICAgICAgICAgICAgICAg ICAgICAgICAgICAgICAgICAgICAgICAgICAgICAgICAgICAgICAgICAgICAgICAgICAgICANCiAgICAg ICAgICAgICAgICAgICAgICAgICAgICAgICAgICAgICAgICAgICAgICAgICAgICAgICAgICAgICAgICAg ICAgICAgICAgICAgICAgICAgICAgICAgICAgICAgIC AgICANCiAgICAgICAgICAgICAgICAgICAgICAgICAgICAgICAgICAgICAgICAgICAgICAgICAgICAgIC AgICAgICAgICAgICAgICAgICAgICAgICAgICAgICAgICAgICAgICAgICAgICANCiAgICAgICAgICAgIC AgICAgICAgICAgICAgICAgICAgICAgICAgICAgICAg ICAgICAgICAgICAgICAgICAgICAgICAgICAgICAgICAgICAgICAgICAgICAgICAgICAgICAgICANCiAg ICAgICAgICAgICAgICAgICAgICAgICAgICAgICAgICAgICAgICAgICAgICAgICAgICAgICAgICAgICAg ICAgICAgICAgICAgICAgICAgICAgICAgICAgICAgIC AgICAgICANCiAgICAgICAgICAgICAgICAgICAgICAgICAgICAgICAgICAgICAgICAgICAgICAgICAgIC AgICAgICAgICAgICAgICAgICAgICAgICAgICAgICAgICAgICAgICAgICAgICAgICANCjw/bNChH9pprD AeutA8L2dlCp6ALp2JXW2fy5WlGOKcZEuekpCoZtbY KhNcBXUzOrzSSdz8PVsvST9WbZEkQ1HlX0RrIWinYZ5FSJMnZMBhcPXpNTYvOOUzStK6ZLSdECnoXJ9V mCObMLysHKQmDUSgMD4AJPZqR958ouAxUU3YYm8STsMmEN8mil6YIHylXDBpLlkIFsd5RJqtDH0BhPUk tFYqPRSxZMAPBsFqD4ezg9ZlAlEkERHKAOhaFK6Gf6 VudCAxDQo+Vu5EID9fr2PbJGakYYVuIE6cll3RSIiJYvTqO7HdlWqvVCWxd5kuTVVbUT9ziEUjYSM9AD Mjbi90gPpyChRZWH7sVQ0WKIN0JGQcJz6dEYFiVFFsVtEsJWEYSO3JXHCvVXRigOLpISUlGIVHQL5LDQ jrAKR0IAKhlhPfhABjMZvrCJ5QPTAnazHwPMukLLZY DQo+If9NPC7qr6OsQYldKUVxAX0taa5JJQaXUdOrZ8R1sYNyC1K6LLyzQw5ZENPjDWIyWRjqOLEKJOrg OC0UDI7jtqC6VW2HuNSpUKXiNCLefQEeNSt4P35lxKYeQMxjHT8AFRP+David+Wa8GCLEbSJTkROCyWkWr HTNIGsIhO0LnE3LKx3CpP4WuNW89jBemveBuKNxwXG 5EDE6lTAFlCTMTSD5BfZGzjZ6jqiQyZKKsGACNEsBuY45ssPRgBNZpZBB4UOFqDo8AUWBsZ7LlcvJaoP vzqwJrZCJgOILTQD6GJClikuDklOCbsYliIH93oGwvXR9BHl1JDqLvUZ7kcv3YePXyDl5ILHRbOn5VOJ HoUNRyRBNnXCF8RBXuFlOoPKgbNUVtGVMmWTE5HEIw BZFzUN7VJgUxAWQcWSl4BiIvFPRxDEUshl0JVBMySTNtOYF2QbWaARWyMNYpWYtxDCUpMPZmAZZ8XJQy FHZtJI4RGpPtQHZiZWV6VRDaNLHfXMGxxs7PVGXvJDCjVgpwLDXuLHDcMLXcIRrfSYHkREPvKgY6WBMu EIWwUS9FBsQwWQDlREU9DwGvSMVoQKCvyp3MVVMmJL BvPUU1GFPbKBUiIIFkVPetKQRnNEO4BKa1NERnQSIzBT8VMuCtZPTsIHKzBEEpJBMoNEVyvr4UCYPyWW UvZBF2RoAtHLXsDQOzEVvwUMKxEWV4FaZmUCPyNEYfNK1RQhKjDAQxPSskNSteZCVgMFCznz8SADNkHI FhKuA3EmTnIDLhSWDcDOcgWFMkUVW0IEW4FEEsDXVd SM4BAmAoWYEpOYn7NXHuMUFeDYQpou8CXVBxXODcYZW3FkTpXLMaFZWxCPowDNNyGYI4VLdnBURvNXBe AI2RSjOfVVRnOFo7WlPyCOTrPIDdth3ZJMKuHPQwIPsqXAGsRGMuNRXrAPr6ikPtgRKjGDt7UG7GJ7Bj ckCzJnZCVw2Eg004NDAeXYNcZa1AU3ksPt2tVWTiJJ LXDj9CDGz7CfFrW6MmPEDtYOQ0ALXeXeGmFROrNCMxXgPeI6E5DFb+WVikKGUaNeV1ZfBlTxI7JhEeBt ZaC0K8B4Z0KmTsSuL3WZ8vBYIAPw4+QAfngAOtlFzjQNUTWzJ3BFHsVBpzJMTIEh1D ID Date Data Source [id number] 11/11/2019 02:12:58 PM EDT [facility] Name Value Range Interpretation Code Description Data Gay rce(s) Supporting Document(s) [facility] DUGOWd7rXrFOByOl35/RBAujBUQob5GcURawYXg3EKgjEIJxJ1AgHDP5cG4jZET3NGwQBxRjKtOsMdNj lbm [file] o= ID Date Data Source [id number] 11/11/2019 02:12:53 PM EDT [facility] Name Value Range Interpretation Code Description Data Gay rce(s) Supporting Document(s) [facility] WGCIJr6yLiFYNePt42/YYRxvWCZzp3TyQMudFYw9VMxzCMZtE0HiZGZ8cH5wMRK3OAnBQwUqMcTjFjPt lbm [file] O0mRLcQz7SNaS0LGOGRdCbCX2URXh= ID Date Data Source [id number] 11/12/2019 10:12:44 AM [facility] Value Range Interpretation Code Description Data Gay rce(s) Supporting Document(s) Thyroperoxidase Ab [Units/volume] in Serum or Plasma 1.1 IU/mL <9.0 [facility] ID Date Data Source [id number] 11/16/2019 11:26:08 AM [facility] Value Range Interpretation Code Description Data Gay rce(s) Supporting Document(s) Cardiolipin IgG Ab [Interpretation] in Serum <20.0 [facility] Negative results do not rule out Antipho spholipid syndrome. Additional APL testing should be considered. ID Date Data Source [id number] 11/16/2019 11:26:08 AM [facility] Value Range Interpretation Code Description Data Gay rce(s) Supporting Document(s) Cardiolipin IgM Ab [Interpretation] in Serum 1.6 U/mL <20.[address] [place] [address] Negative results do not rule out Antipho spholipid syndrome. Additional APL testing should be considered. ID Date Data Source [id number] 11/16/2019 11:26:08 AM [facility] Value Range Interpretation Code Description Data Gay rce(s) Supporting Document(s) Beta 2 glycoprotein 1 IgM Ab [Units/volume] in Serum <20.0 [facility] Negative results do not rule out Antipho spholipid syndrome. Other APL testing should be considered. Beta 2 glycoprotein 1 IgG Ab [Units/volume] in Serum <20.0 [facility] Negative results do not rule out Antipho spholipid syndrome. Other APL testing should be considered. ID Date Data Source [id number] 11/11/2019 01:02:35 PM [facility] Value Range Interpretation Code Description Data Gay rce(s) Supporting Document(s) Leukocytes [#/volume] in Blood by Automated count 2.5 10*3/uL 4-10 L [facility] Erythrocytes [#/volume] in Blood by Automated count 3.37 10*6/uL 4.1- 5.3 L [facility] Hemoglobin [Mass/volume] in Blood 11.0 g/dL 11.5-15.5 L [facility] Hematocrit [Volume Fraction] of Blood by Automated count 32.0 % 3 6-45 L [facility] Erythrocyte mean corpuscular volume [Entitic volume] by Auto mated count 94.9 fL 80-96 [facility] Erythrocyte mean corpuscular hemoglobin [Entitic mass] by Automated count 32.7 pg 27-33 [facility] Erythrocyte mean corpuscular hemoglobin concentration [Mass/volume] by Automated count 34.5 g/dL 32.0-36.0 [facility] Erythrocyte distribution width [Ratio] by Automated count 13.6 % 11.5-14.5 [facility] Platelets [#/volume] in Blood by Automated count 271 10*3/uL 150-400 [facility] Neutrophils/100 leukocytes in Blood by Automated count 38 % [facility] Lymphocytes/100 leukocytes in Blood by Automated count 52 % [facility] Monocytes/100 leukocytes in Blood by Automated count 9 % [facility] Basophils/100 leukocytes in Blood by Automated count 1 % [facility] Neutrophils [#/volume] in Blood by Automated count 0.95 10*3/uL 1.8-7 .0 [facility] Lymphocytes [#/volume] in Blood by Automated count 1.29 10*3/uL 1.2-4 .0 [facility] Monocytes [#/volume] in Blood by Automated count 0.23 10*3/uL 0-0.8 [facility] Basophils [#/volume] in Blood by Automated count 0.03 10*3/uL 0-0.2 [facility] Platelet adequacy [Presence] in Blood by Light microscopy Normal [facility] Differential cell count method - Blood [facility] ID Date Data Source [id number] 11/11/2019 01:16:40 PM [facility] Name Value Range Interpretation Code Description Data Gay rce(s) Supporting Document(s) Erythrocyte sedimentation rate 8 mm/hr <20 [facility] ID Date Data Source [id number] 11/11/2019 02:04:38 PM [facility] Name Value Range Interpretation Code Description Data Gay rce(s) Supporting Document(s) C reactive protein [Mass/volume] in Serum or Plasma <8.0 [facility] ID Date Data Source [id number] 11/11/2019 02:04:38 PM EDT [facility] Name Value Range Interpretation Code Description Data Gay rce(s) Supporting Document(s) Albumin [Mass/volume] in Serum or Plasma by Bromocresol green (BCG) dye binding method 4.5 g/dL 3.5-5.2 [facility] Bilirubin.total [Mass/volume] in Serum or Plasma 0.8 mg/dL <1.2 [facility] Calcium [Mass/volume] in Serum or Plasma 9.1 mg/dL 8.6-10.0 [facility] Chloride [Moles/volume] in Serum or Plasma 105 mmol/L 98-107 [facility] Creatinine [Mass/volume] in Serum or Plasma 0.77 mg/dL 0.50-0.90 [facility] Glucose [Mass/volume] in Serum or Plasma 77 mg/dL 70-140 [facility] Alkaline phosphatase [Enzymatic activity/volume] in Serum or Plasma 70 U/L 35-104 [facility] Potassium [Moles/volume] in Serum or Plasma 3.6 mmol/L 3.4-5.1 [facility] Protein [Mass/volume] in Serum or Plasma 7.6 g/dL 6.4-8.3 [facility] Sodium [Moles/volume] in Serum or Plasma 136 mmol/L 136-145 [facility] Aspartate aminotransferase [Enzymatic activity/volume] in Serum or Plasma 16 U/L <32 [facility] Urea nitrogen [Mass/volume] in Serum or Plasma 8 mg/dL 6-20 [facility] Osmolality of Serum or Plasma by calculation 280 mosm/kg 275-300 [facility] Creatinine/Urea nitrogen [Mass Ratio] in Serum or Plasma 10 [facility] Bicarbonate [Moles/volume] in Serum 21 mmol/L 22-29 L [facility] Alanine aminotransferase [Enzymatic activity/volume] in Seru m or Plasma 6 U/L <33 [facility] Anion gap 3 in Serum or Plasma 11 mmol/L 8-15 [facility] Albumin/Globulin [Mass Ratio] in Serum or Plasma 1.5 [facility] Glomerular filtration rate/1.73 sq M pre dicted among non-blacks [Volume Rate/Area] in Serum or Plasma by Creatinine-based formula (MDRD) >6 0 [facility] Glomerular filtration rate/1.73 sq M pre dicted among blacks [Volume Rate/Area] in Serum or Plasma by Creatinine-based formula (MDRD) >60 [facility] ID Date Data Source [id number] 11/11/2019 02:04:38 PM [facility] Value Range Interpretation Code Description Data Gay rce(s) Supporting Document(s) Thyrotropin [Units/volume] in Serum or Plasma 0.724 u[IU]/mL 0.270-4. 200 [facility] ID Date Data Source [id number] 11/11/2019 04:16:18 PM [facility] Value Range Interpretation Code Description Data Gay rce(s) Supporting Document(s) Complement C3 [Mass/volume] in Serum or Plasma 103 mg/dL 90-180 [facility] ID Date Data Source [id number] 11/11/2019 04:16:18 PM [facility] Value Range Interpretation Code Description Data Gay rce(s) Supporting Document(s) Complement C4 [Mass/volume] in Serum or Plasma 21 mg/dL 10-40 [facility] ID Date Data Source [id number] 11/12/2019 12:34:16 PM [facility] Value Range Interpretation Code Description Data Gay rce(s) Supporting Document(s) Lupus anticoagulant neutralization plate let [Time] in Platelet poor plasma by Coagulation assay 6.4 sec <8.0 [facility] ID Date Data Source [id number] 11/12/2019 12:34:16 PM [facility] Value Range Interpretation Code Description Data Gay rce(s) Supporting Document(s) dRVVT/dRVVT W excess phospholipid (screen to confirm ratio) 0.91 Ra carl <1.20 [facility] ID Date Data Source [id number] 11/12/2019 12:34:16 PM [facility] Value Range Interpretation Code Description Data Gay rce(s) Supporting Document(s) Lupus anticoagulant neutralization plate let [Time] in Platelet poor plasma by Coagulation assay 0.0 sec <1.0 [facility] ID Date Data Source [id number] 11/12/2019 01:03:40 PM [facility] Value Range Interpretation Code Description Data Gay rce(s) Supporting Document(s) Nuclear Ab Pattern Homogenous [Titer] in Serum <80 [facility] Nuclear Ab pattern.speckled [Titer] in Serum <80 [facility] Nuclear Ab pattern.rim [Titer] in Serum <80 [facility] Nuclear Ab pattern.nucleolar [Titer] in Serum <80 [facility] ID Date Data Source [id number] 11/12/2019 01:14:36 PM [facility] Name Value Range Interpretation Code Description Data Gay rce(s) Supporting Document(s) Lymphocytes [#/volume] in Blood by Flow cytometry (FC) 1269 cell s/uL [id number] [facility] CD19 cells/100 cells in Blood 6 % 6-23 [facility] CD19 cells [#/volume] in Blood 74 {cells}/uL 91-610 [facility] CD3 cells/100 cells in Blood 72 % 62-87 [facility] CD3 cells [#/volume] in Blood 916 {cells}/uL 570-2400 [facility] CD3+CD4+ (T4 helper) cells/100 cells in Blood 37 % 32-64 [facility] CD3+CD4+ (T4 helper) cells [#/volume] in Blood 475 {cells}/uL 430-180 0 [facility] CD3+CD8+ (T8 suppressor cells) cells/100 cells in Blood 30 % 15 -46 [facility] CD3+CD8+ (T8 suppressor cells) cells [#/volume] in Blood 380 {cells}/uL 210-1200 [facility] CD16+CD56+ cells/100 cells in Blood 21 % 4-26 [facility] CD16+CD56+ cells [#/volume] in Blood 263 {cells}/uL 78-470 [facility] CD3+CD4+ (T4 helper) cells/CD3+CD8+ (T8 suppressor cells) cells [# Ratio] in Blood 1.3 0.8-3.9 [facility] Service comment 02 [facility] Reference range established on 11/18/14.R eference ranges for adults and children 5 years - 54 years old per [employer].Reference ranges for adults >55 years of age per [facility].Pediatric reference ranges for children less than 5 years of age [facility] ID Date Data Source [id number] 11/12/2019 04:07:25 PM [facility] Name Value Range Interpretation Code Description Data Gay rce(s) Supporting Document(s) Cardiolipin IgA Ab [Units/volume] in Serum by Immunoassay 0-11 [facility] (NOTE) Negative: <12 Indeterminate: 12 - 20 Low-Med Positive: >20 - 80 High Positive: >80Performed At: [facility] [id number] Green MD Ph:[phone] ID Date Data Source [id number] 11/12/2019 05:06:04 PM EDT [facility] Value Range Interpretation Code Description Data Gay rce(s) Supporting Document(s) Creatine kinase [Enzymatic activity/volume] in Serum or Plasma 138 U/L 32-182 [facility] (NOTE) Please note referen ce interval change Creatine Kinase.macromolecular type 2/Creatine kinase. total in Serum or Plasma 0 % Not Observed [facility] Creatine kinase.MM/Creatine kinase.total in Serum or P lasma by Electrophoresis 100 % 97-100 [facility] Creatine Kinase.macromolecular type 1/Creatine kinase. total in Serum or Plasma 0 % Not Observed [facility] Creatine kinase.MB/Creatine kinase.total in Serum or P lasma by Electrophoresis 0 % 0-3 [facility] Creatine kinase.BB/Creatine kinase.total in Serum or P lasma by Electrophoresis 0 % 0 [facility] (NOTE)Performed At: [facility] [id number] Green MD Ph:[phone] ID Date Data Source [id number] 11/13/2019 07:06:19 AM EDT [facility] Value Range Interpretation Code Description Data Gay rce(s) Supporting Document(s) Beta 2 glycoprotein 1 IgA Ab [Units/volume] in Serum 0-25 [facility] (NOTE)The reference interval reflects a 3SD or 99th percentile interval,which is thought to represent a potentially clinically significantresult in accordance with the International Consensus Statement onthe classification criteria for definitive antiphospholipidsyndrome (APS). J Thromb Haem 2006;4:295- 306.Performed At: [facility] [id number] Hernandez MD Ph:[phone] ID Date Data Source [id number] 11/11/2019 01:15:46 PM [facility] Name Value Range Interpretation Code Description Data Gay rce(s) Supporting Document(s) Color of Urine [facility] Clarity of Urine [facility] Specific gravity of Urine by Refractometry automated 1.024 1.003 -1.030 [facility] pH of Urine by Automated test strip 5.0 5.0-8.0 [facility] Protein [Mass/volume] in Urine by Automated test strip Neg [facility] Glucose [Mass/volume] in Urine by Automated test strip Neg [facility] Ketones [Mass/volume] in Urine by Automated test strip Neg [facility] Bilirubin.total [Presence] in Urine by Automated test strip Negative [facility] Hemoglobin [Presence] in Urine by Automated test strip Neg [facility] Leukocyte esterase [Presence] in Urine by Automated test strip Negative [facility] Nitrite [Presence] in Urine by Automated test strip Negati [facility] Leukocytes [#/area] in Urine sediment by Automated count 16 /HPF 0 -5 H [facility] Erythrocytes [#/area] in Urine sediment by Automated count 4 /HPF 0-3 H [facility] Epithelial cells.squamous [#/area] in Urine sediment by Auto mated count 21 /HPF None [facility] Mucus [#/area] in Urine sediment by Microscopy low power field None [facility] Crystals.amorphous [#/area] in Urine sediment by Microscopy high power field None [facility] ID Date Data Source [id number] 11/11/2019 01:43:18 PM [facility] Value Range Interpretation Code Description Data Gay rce(s) Supporting Document(s) Protein [Mass/volume] in Urine 15 mg/dl [facility] Creatinine [Mass/volume] in Urine 249.5 mg/dL [facility] Protein/Creatinine [Mass Ratio] in Urine 0.06 mg/mg{creat} [facility] ID Date Data Source [id number] 11/03/2019 12:42:09 PM [facility] Value Range Interpretation Code Description Data Gay rce(s) Supporting Document(s) Leukocytes [#/volume] in Blood by Automated count 2.4 10*3/uL 4-10 L [facility] Erythrocytes [#/volume] in Blood by Automated count 3.52 10*6/uL 4.1- 5.3 L [facility] Hemoglobin [Mass/volume] in Blood 11.4 g/dL 11.5-15.5 L [facility] Hematocrit [Volume Fraction] of Blood by Automated count 33.9 % 3 6-45 L [facility] Erythrocyte mean corpuscular volume [Entitic volume] by Auto mated count 96.3 fL 80-96 H [facility] Erythrocyte mean corpuscular hemoglobin [Entitic mass] by Automated count 32.4 pg 27-33 [facility] Erythrocyte mean corpuscular hemoglobin concentration [Mass/volume] by Automated count 33.7 g/dL 32.0-36.0 [facility] Erythrocyte distribution width [Ratio] by Automated count 12.9 % 11.5-14.5 [facility] Platelets [#/volume] in Blood by Automated count 260 10*3/uL 150-400 [facility] Differential cell count method - Blood [facility] Neutrophils/100 leukocytes in Blood by Automated count 50 % [facility] Lymphocytes/100 leukocytes in Blood by Automated count 40 % [facility] Monocytes/100 leukocytes in Blood by Automated count 10 % [facility] Eosinophils/100 leukocytes in Blood by Automated count 0 % [facility] Basophils/100 leukocytes in Blood by Automated count 0 % [facility] Neutrophils [#/volume] in Blood by Automated count 1.18 10*3/uL 1.8-7 .0 L [facility] Lymphocytes [#/volume] in Blood by Automated count 0.95 10*3/uL 1.2-4 .0 [facility] Monocytes [#/volume] in Blood by Automated count 0.24 10*3/uL 0-0.8 [facility] Eosinophils [#/volume] in Blood by Automated count 0.00 10*3/uL 0-0.5 [facility] Basophils [#/volume] in Blood by Automated count 0.00 10*3/uL 0-0.2 [facility] Nucleated erythrocytes/100 leukocytes [Ratio] in Blood by Automated count 0 /100{WBCs} 0-0 [facility] ID Date Data Source [id number] 11/03/2019 01:47:41 PM EDT [facility] Name Value Range Interpretation Code Description Data Gay rce(s) Supporting Document(s) Albumin [Mass/volume] in Serum or Plasma by Bromocresol green (BCG) dye binding method 4.4 g/dL 3.5-5.2 [facility] Bilirubin.total [Mass/volume] in Serum or Plasma 0.7 mg/dL <1.2 [facility] Calcium [Mass/volume] in Serum or Plasma 9.4 mg/dL 8.6-10.0 [facility] Chloride [Moles/volume] in Serum or Plasma 102 mmol/L 98-107 [facility] Creatinine [Mass/volume] in Serum or Plasma 0.72 mg/dL 0.50-0.90 [facility] Glucose [Mass/volume] in Serum or Plasma 86 mg/dL 70-140 [facility] Alkaline phosphatase [Enzymatic activity/volume] in Serum or Plasma 68 U/L 35-104 [facility] Potassium [Moles/volume] in Serum or Plasma 3.8 mmol/L 3.4-5.1 [facility] Protein [Mass/volume] in Serum or Plasma 7.1 g/dL 6.4-8.3 [facility] Sodium [Moles/volume] in Serum or Plasma 138 mmol/L 136-145 [facility] Aspartate aminotransferase [Enzymatic activity/volume] in Serum or Plasma 12 U/L <32 [facility] Urea nitrogen [Mass/volume] in Serum or Plasma 6 mg/dL 6-20 [facility] Osmolality of Serum or Plasma by calculation 282 mosm/kg 275-300 [facility] Creatinine/Urea nitrogen [Mass Ratio] in Serum or Plasma 9 [facility] Bicarbonate [Moles/volume] in Serum 26 mmol/L 22-29 [facility] Alanine aminotransferase [Enzymatic activity/volume] in Seru m or Plasma 7 U/L <33 [facility] Anion gap 3 in Serum or Plasma 10 mmol/L 8-15 [facility] Albumin/Globulin [Mass Ratio] in Serum or Plasma 1.6 [facility] Glomerular filtration rate/1.73 sq M pre dicted among non-blacks [Volume Rate/Area] in Serum or Plasma by Creatinine-based formula (MDRD) >6 0 [facility] Glomerular filtration rate/1.73 sq M pre dicted among blacks [Volume Rate/Area] in Serum or Plasma by Creatinine-based formula (MDRD) >60 [facility] ID Date Data Source [id number] 11/03/2019 02:02:21 PM [facility] Value Range Interpretation Code Description Data Gay rce(s) Supporting Document(s) Cobalamin (Vitamin B12) [Mass/volume] in Serum or Plasma 598 pg/ml 2 11-946 [facility] ID Date Data Source [id number] 11/03/2019 02:46:48 PM [facility] Value Range Interpretation Code Description Data Gay rce(s) Supporting Document(s) Ceruloplasmin [Mass/volume] in Serum or Plasma 22 mg/dl 16-45 [facility] ID Date Data Source [id number] 11/03/2019 02:46:48 PM [facility] Value Range Interpretation Code Description Data Gay rce(s) Supporting Document(s) IgG [Mass/volume] in Serum or Plasma 1177 mg/dL 700-1600 [facility] IgA [Mass/volume] in Serum or Plasma 195 mg/dL 70-400 [facility] IgM [Mass/volume] in Serum or Plasma 129 mg/dL 30-230 [facility] ID Date Data Source [id number] 11/03/2019 02:04:01 PM [facility] Value Range Interpretation Code Description Data Gay rce(s) Supporting Document(s) Hepatitis A virus IgM Ab [Presence] in Serum or Plasma by Im munoassay Non Reactive [facility] Hepatitis B virus core IgM Ab [Presence] in Serum or Plasma by Immunoassay [facility] Reactive [facility] IgM antibodies to HBc were not detected, does not exclude the possibility of exposure to HBV. Hepatitis C virus Ab [Presence] in Serum or Plasma by Immuno assay Non Reactive [facility] No serological evidence of active infect ion. If recent exposure is suspected, test for HCV RNA. Hepatitis B virus surface Ag [Presence] in Serum or Plasma b y Immunoassay Non Reactive [facility] No active or previous infection. Suscept ible to infection. ID Date Data Source [id number] 11/03/2019 02:04:01 PM [facility] Value Range Interpretation Code Description Data Gay rce(s) Supporting Document(s) Folate [Mass/volume] in Serum or Plasma 17.60 ng/mL >4.77 [facility] ID Date Data Source [id number] 11/03/2019 01:50:17 PM EDT [facility] Name Value Range Interpretation Code Description Data Gay rce(s) Supporting Document(s) HIV 1+2 Ab+HIV1 p24 Ag [Presence] in Serum or Plasma by Immu noassay Non Reactive [facility] Negative for HIV-1 p24 antigenand HIV-1/ HIV-2 antibodies. Nolaboratory evidence of HIVinfection. ID Date Data Source [id number] 11/03/2019 11:48:29 AM EDT [facility] Name Value Range Interpretation Code Description Data Gay rce(s) Supporting Document(s) [facility] JDUHPc6wAxIHTrGq22/UXVlcTPPtj4NcXRftCGg9NYiwIJIrA3VmHRP0nJ9cNLY0TKkAYfRxLzZoZxUp m [file] VlFqPlDpLCI9LyrbJRP1IG0wUOBBQg9+ACiloSUhjHonFPKNEpD6GTB4WWzfJDNLUh4W ID Date Data Source [id number] 11/01/2019 02:38:50 PM EDT [facility] Name Value Range Interpretation Code Description Data Gay rce(s) Supporting Document(s) [facility] ELGOFz3mCcUHShZi40/PBAjsVBYdc0XjSAbrYTd6LUfqLKMuT5OmFJA6kU5jZSX2RBaQSjNxFdNiKzTx lbm PoDklVJkDvBYTlQocIXxErPEgoTryuxVRuID9ZdXV2DUSlZ14yQAScCRWuQ7DtLUO0WBU+Ie0TMUGfwU BbQZ7FFvcR6Jmmx+O49XuB/znTPhvgUJMr4QPQKHNKMbgpDKfoqdbcLG5e6Ysiom9vCOhx/vfVQdp+Garland AYLxD0N+zMh4Qg+o4Be9JGyf67WtRNa9UWux+rX8OI k9GU/IWTPW7E1MEe6q/DClCDW0gTBvR4t5GWV9fNinQDZdxbLTzxJg5KUZnjzZZOQkcgbCwn7styxLmy wannccAaw4mdw1pZ8V1LJzm//ECG/yEfh+PWj3oUMd7p1t2ARgFrQIjxbDlIBgLA85SgLRIfSwCq76gV a1qZ4f4ZhK9pK10BGBEE9iKV+p90edru52lby8O8Zz Mh7A7EEVqnGaTmzJWy2HEAOwQ9vN8hCOKQMIog6IAnQk5cp5f8pwPn3Fq9IRn0zaMzj/uHUrZDJeQD9P sEC7tqXQYrawRXDyhb1h4/QpacrfgbJP+3t7RXxuk3PzwcgDPJHgPVA3AjS3Sf1zAgCrm1UsNmnGQKLh nXy6KNAkOq1kS84DORT57UrKV57HHKaNAX36HNH5Nj KOnQ2kRAwpc3bQA+ctQgXJMmFXdZPQfoCKgNiKsWe7U3rkd6Nhaei5puE90GIJIJ0qvtEN03Tj8G7pS8 TKSdm5CbLBLXnEZQU6lC2TDWpwuowkBKA5SBddOkkBbg3f38lZarF2Elx9y3o7qh3Ih7VNUoXlqhu+pavon atAO75hCmcZUM+8isCXzfPn6MYCrJGvCFErL4txIjr D658CBQOlH69Fum0L5huKRKTOSGUCZEDXxDiY/990KajmhFkYd8OdrJhASx0iocA/9hfBqFMEBO+CUU0 LYoaDk+mIX6V/ky30y55ZsnvylANRay+S9IOEZHO7/9Hjt0eghdCYLyDiYA8/zAeyFfbY8qLISrK9tDV nE9B6ebP+1+bCe/YRO9mmKgkiIxTdhnoqfKpINlWpZ fJdSSdwUIyMwsW8I0AuBWvporx5phLWwl7ABbYIydSACEBPQQL01uK549SARIONwKQdS0esCnL2W7UBK ARlGmH6dGS8dQKS0xUnLcZpOmB6zFbvzNP7flQyKqDUzTAiPwQQR1OhpX6JqDM00cxinXD+vud6OKIh1 rrpC2mrBTktpbQwtXgtFK5phiLVlbGkjLVLqvcL4JO IQXeCXO4LFlwkXOUQ+3qc6L5YFGu3ETXyTb0d+HEc0tlCMfkM4Rcb5PE0pGdhnZbOJwPAfoguo+fcQMc J+6fPyYRd8bqh//ZXSO/39j7QfA4sLdSpMklBX5kUbhMh0eKdUYDseKX2VbohFXibHVS8blNigkF0b1b GWBuqmWu4iWdr9EQ+cQCP/PHsdy1fZ1ME9dqfmkzbK +8+6dHpuD1Jh74EPm3BpUhAc2wyAavQektd0MtiK9tYT4eptqNnv0B0vaDufwhflIdT5FgxwlfqxIH4o 5+bhwZr1pcs70yZm1j4J/JVwNK2ASO1hW9lEKDqRac+GEU2v5ljvGf2phsuriYCWrGofDdsTo1iV+unruly [file] ZgS5HMJ9dPQdVa2BEkw6BYOKZtNfAA2BBLb= ID Date Data Source [id number] 10/26/2019 07:08:07 PM EDT [facility] Name Value Range Interpretation Code Description Data Gay rce(s) Supporting Document(s) [facility] ZEQNMd4rOeUKYjNw99/TESjhQFBbt7BgKQqaGLp7SWetMTWqY1SgMZB5mL6fNEQ6AUaUYeKiMhSxYZJ2 lbm [file] ICAgICAgICAgICAgICAgICAgICAgICAgICAgICAgICAgICAgICAgICAgICAgICAgICAgICAgICAgICAg ICAgICAgICAgICAgICAgICAgICAgICAgICAgICAgICAgICAgDQogICAgICAgICAgICAgICAgICAgICAg ICAgICAgICAgICAgICAgICAgICAgICAgICAgICAgIC AgICAgICAgICAgICAgICAgICAgICAgICAgICAgICAgICAgICAgICAgICAgICAgDQogICAgICAgICAgIC AgICAgICAgICAgICAgICAgICAgICAgICAgICAgICAgICAgICAgICAgICAgICAgICAgICAgICAgICAgIC AgICAgICAgICAgICAgICAgICAgICAgICAgICAgDQog ICAgICAgICAgICAgICAgICAgICAgICAgICAgICAgICAgICAgICAgICAgICAgICAgICAgICAgICAgICAg ICAgICAgICAgICAgICAgICAgICAgICAgICAgICAgICAgICAgICAgDQogICAgICAgICAgICAgICAgICAg ICAgICAgICAgICAgICAgICAgICAgICAgICAgICAgIC AgICAgICAgICAgICAgICAgICAgICAgICAgICAgICAgICAgICAgICAgICAgICAgICAgDQogICAgICAgIC AgICAgICAgICAgICAgICAgICAgICAgICAgICAgICAgICAgICAgICAgICAgICAgICAgICAgICAgICAgIC AgICAgICAgICAgICAgICAgICAgICAgICAgICAgICAg DQogICAgICAgICAgICAgICAgICAgICAgICAgICAgICAgICAgICAgICAgICAgICAgICAgICAgICAgICAg ICAgICAgICAgICAgICAgICAgICAgICAgICAgICAgICAgICAgICAgICAgDQogICAgICAgICAgICAgICAg ICAgICAgICAgICAgICAgICAgICAgICAgICAgICAgIC AgICAgICAgICAgICAgICAgICAgICAgICAgICAgICAgICAgICAgICAgICAgICAgICAgICAgDQogICAgIC AgICAgICAgICAgICAgICAgICAgICAgICAgICAgICAgICAgICAgICAgICAgICAgICAgICAgICAgICAgIC AgICAgICAgICAgICAgICAgICAgICAgICAgICAgICAg ICAgDQogICAgICAgICAgICAgICAgICAgICAgICAgICAgICAgICAgICAgICAgICAgICAgICAgICAgICAg NRKsODHrBIWoNSZzQOYgHPBnWDFjYOQwBCHpUTSrFOSbDJJoYRNkJHMwESMgQQl2W3ajPHHhDOOcDY7g TGj8Vt4+NGgECaJgRBK4cuRozX7JNB2ht1DuCXioAN Jxv8GpSLd1ZW5YSYPwONogGS1AYScijk0EMGVlTDLycIERh7syXqRaZLW8CSYdAmnrAN8RYLQlF9ezax JlGAYuKHHCZQdaQZCRXNhtTKMIWMAzVQYrZeWdTpYnOKJqCNLnYEYAUR5BSnWrB9UkeM98QWUBWc2+DQ iumgAwTtwPJsO9EQUch7NyOZq8GU0WNNMoQkmmy1No KrKfCTAUGKiyRH0CTIA7SWZdARGiTo4NQGMuH814nlHfLO1XCo8RXvUsRT4paj4XSrUxQYUcRaoEFwf4 IRvvTR2AxUVbESoAec3ruiBuqmURq4ZznuElfWKNz3L8dUNmIDksyoxdSZJfkRycGHHlNGFiUY7hHQ0y XBCmDJQjSsFaRNOKOF1UITAqAUJijSZlNWOrNLXBOG 0CJYpqESN8AFWrxxZwxLFyFHqkVL0JQDKxecNiGoctEBHNBXl+Go3LFC2dj8VrBXmcAWKzIH9vov4OWC hAQvYiU8F1iZBcS5B1KLmfAz2MFZPeVXFsYipkLDWYKEifAC0TPC6cjlT0JL4OdGBzSJVdKDShoFVcSR n2J46qfGMnVAhdYR1DDZJ+David+Np5RWDHtGJHcTSAb XpMiLSIJUbCtA9VvT3ZCs5GmG2PuXF66mMimgqRmPBzhZV8ROE9nVTKaKOTGDO5NjUQeoE3mowOtLFRz BFOBAaCmP36kqNOzUFXkPGR9SOFuLf0IKSRwO3KsmyHoaZwtxfNjTTErPFRJTT7KZVjgvqVkqIPfjJbp MJ18gUeaED0ERl4HMbZdGI0nvz2OxJTbLo0QALQgTa 7SHFMvTHCsAUAmLCN2KCGhOiKyWRnwXYZbMKUjATE6BXZcQFFlVG6SUdRnSTOhHxDiBkUpUVAxBKCvhp 8MANFsVEFcUxq7DiNuAQBjGYIiOGhlOFVoANGbUGT1EEPqYTHlNQ5IUbRxTLTmUZCqHbYzFPSvFTQwwc 8VTIEnRRTtJtTaARJtKRUrZBElNOieBPOvTKP7BHN3 ULErHBVyNN3PIhUzWRLgKQS8PsFlCAAbRKWsnd6HBOEgXLGiPWW2XaOqPJEwXJNfFEloRFSlEXD6EKA9 PZIbCXAmYZ8QWpBuHBNkZBChRuChTSXjWKUpro3AYZGoMOJbSxLrDDJyRFPuHRAlQKqxZJRmOBV5XkVx DTKuNZOcOA9VPbLySPJtBUF0TtdxVBRrVWXdhg7FVV TqOCTjRic2CyToGAFsKGYnYFroERBfUOG0KHdnBVIiSRTkMW1JHuKlNKRxXVd0EHCxKMHcTKAlni1FYM StMBTdHAF8BZVpIAWhYIYlDCugUWCxTKH8NfVhHOSwTKCyRU9UKhLsVHFiJXykHJHrOXUuTFPgjp7TAT PqZLDzSWN6CdPeDEPjFIUcPDfgSPJnPJJ3GotgIMGp CPKmHR6SQrBuQPTzFkYrLVFjITVlQUQvsi8XLDUrFJWaWNOuXnJjEBXyNLCoISziFQNsHMSzCgN0WZAw NDHfEG2ROpXuDSQgKfN0MVJlQFXtQZImdo7HEPWlACNpLoR2SFVyTFMrSXNhMEcbRIZtNGIlWHTgRXNu BCEjLS8YXhLyITIwNdG7AJPgLHRcFLVite9UGIIlMK ElTco3JYBcZMYvIGNtBAxwKYGjRSN1AIG6YTVrJYGjZK9QNfXbNLecCHRKWdr9SVmsW4p4BUWdFz4JA6 Nbt2DeBeEfTSKSCTckVR4vqjYiSRYqRh6KS5pBBwj9Tog0AGicBLE2EKHrFJObVVY6FxJhHHDvFSOkHV T9ZE2yRXZ8TLQ2WNLjPtEvGnI5QIKuBQOrXFXzTqJd FGDwBFTrRhHvLG8QWl3BNsP4VZF9xEJxTf6XKzNbMFITAcXpDB3DVPk= ID Date Data Source [id number] 10/18/2019 06:53:56 PM T [facility] NegativeNo interferon-gamma response to M.tuberculosisantigens was detected. Infection withM. tuberculosis is unlikely. A single negativeresult does not exclude infection with M. TB.In patients at high risk for M. tuberculosisinfection, a 2nd test should be consideredin accordance with [id number] ATS/IDSA/CDC Clinical Practice Guidelinesfor Diagnosis of Tuberculosis in Adults andChildren [Karla REDMAN et. al. Clin Infec.Fjr8236 64(2):111-115] Name Value Range Interpretation Code Description Data Gay rce(s) Supporting Document(s) Leukocytes [#/volume] in Blood by Automated count 3.0 10*3/uL 4-10 L [facility] Erythrocytes [#/volume] in Blood by Automated count 3.64 10*6/uL 4.1- 5.3 L [facility] Hemoglobin [Mass/volume] in Blood 12.1 g/dL 11.5-15.5 [facility] Hematocrit [Volume Fraction] of Blood by Automated count 35.8 % 3 6-45 L [facility] Erythrocyte mean corpuscular volume [Entitic volume] by Auto mated count 98.3 fL 80-96 H [facility] Erythrocyte mean corpuscular hemoglobin [Entitic mass] by Automated count 33.1 pg 27-33 H [facility] Erythrocyte mean corpuscular hemoglobin concentration [Mass/volume] by Automated count 33.7 g/dL 32.0-36.0 [facility] Erythrocyte distribution width [Ratio] by Automated count 13.3 % 11.5-14.5 [facility] Platelets [#/volume] in Blood by Automated count 328 10*3/uL 150-400 [facility] Differential cell count method - Blood [facility] Neutrophils/100 leukocytes in Blood by Automated count 55 % [facility] Lymphocytes/100 leukocytes in Blood by Automated count 36 % [facility] Monocytes/100 leukocytes in Blood by Automated count 8 % [facility] Eosinophils/100 leukocytes in Blood by Automated count 0 % [facility] Basophils/100 leukocytes in Blood by Automated count 1 % [facility] Neutrophils [#/volume] in Blood by Automated count 1.63 10*3/uL 1.8-7 .0 L [facility] Lymphocytes [#/volume] in Blood by Automated count 1.08 10*3/uL 1.2-4 .0 L [facility] Monocytes [#/volume] in Blood by Automated count 0.25 10*3/uL 0-0.8 [facility] Eosinophils [#/volume] in Blood by Automated count 0.01 10*3/uL 0-0.5 [facility] Basophils [#/volume] in Blood by Automated count 0.03 10*3/uL 0-0.2 [facility] Nucleated erythrocytes/100 leukocytes [Ratio] in Blood by Automated count 0 /100{WBCs} 0-0 [facility] ID Date Data Source [id number] 10/18/2019 07:08:04 PM EDT [facility] NegativeNo interferon-gamma response to M.tuberculosisantigens was detected. Infection withM. tuberculosis is unlikely. A single negativeresult does not exclude infection with M. TB.In patients at high risk for M. tuberculosisinfection, a 2nd test should be consideredin accordance with [id number] ATS/IDSA/CDC Clinical Practice Guidelinesfor Diagnosis of Tuberculosis in Adults andChildren [Karla DM et. al. Clin Infec.Rfj4561 64(2):111-115] Name Value Range Interpretation Code Description Data Gay rce(s) Supporting Document(s) Albumin [Mass/volume] in Serum or Plasma by Bromocresol green (BCG) dye binding method 4.4 g/dL 3.5-5.2 [facility] Bilirubin.total [Mass/volume] in Serum or Plasma 0.6 mg/dL <1.2 [facility] Calcium [Mass/volume] in Serum or Plasma 9.3 mg/dL 8.6-10.0 [facility] Chloride [Moles/volume] in Serum or Plasma 101 mmol/L 98-107 [facility] Creatinine [Mass/volume] in Serum or Plasma 0.73 mg/dL 0.50-0.90 [facility] Glucose [Mass/volume] in Serum or Plasma 81 mg/dL 70-140 [facility] Alkaline phosphatase [Enzymatic activity/volume] in Serum or Plasma 57 U/L 35-104 [facility] Potassium [Moles/volume] in Serum or Plasma 3.6 mmol/L 3.4-5.1 [facility] Protein [Mass/volume] in Serum or Plasma 7.7 g/dL 6.4-8.3 [facility] Sodium [Moles/volume] in Serum or Plasma 137 mmol/L 136-145 [facility] Aspartate aminotransferase [Enzymatic activity/volume] in Se rum or Plasma 9 U/L <32 [facility] Urea nitrogen [Mass/volume] in Serum or Plasma 9 mg/dL 6-20 [facility] Osmolality of Serum or Plasma by calculation 282 mosm/kg 275-300 [facility] Creatinine/Urea nitrogen [Mass Ratio] in Serum or Plasma 12 [facility] Bicarbonate [Moles/volume] in Serum 24 mmol/L 22-29 [facility] Alanine aminotransferase [Enzymatic activity/volume] in Seru m or Plasma 9 U/L <33 [facility] Anion gap 3 in Serum or Plasma 13 mmol/L 8-15 [facility] Albumin/Globulin [Mass Ratio] in Serum or Plasma 1.3 [facility] Glomerular filtration rate/1.73 sq M pre dicted among non-blacks [Volume Rate/Area] in Serum or Plasma by Creatinine-based formula (MDRD) >6 0 [facility] Glomerular filtration rate/1.73 sq M pre dicted among blacks [Volume Rate/Area] in Serum or Plasma by Creatinine-based formula (MDRD) >60 [facility] ID Date Data Source [id number] 10/19/2019 11:02:13 AM EDT [facility] NegativeNo interferon-gamma response to M.tuberculosisantigens was detected. Infection withM. tuberculosis is unlikely. A single negativeresult does not exclude infection with M. TB.In patients at high risk for M. tuberculosisinfection, a 2nd test should be consideredin accordance with [id number] ATS/IDSA/CDC Clinical Practice Guidelinesfor Diagnosis of Tuberculosis in Adults andChildren [Lewinsbennyn DM et. al. Clin Infec.[id number] 64(2):111-115] Name Value Range Interpretation Code Description Data Gay rce(s) Supporting Document(s) Sjogrens syndrome-A extractable nuclear Ab [Units/volume] in Serum by Immunofluorescence 31 [AU]/mL 0-99 [facility] Sjogrens syndrome-B extractable nuclear Ab [Units/volume] in Serum by Immunofluorescence 21 [AU]/mL 0-99 [facility] Snow extractable nuclear Ab [Units/volume] in Serum b y Immunofluorescence 19 [AU]/mL 0-99 [facility] Ribonucleoprotein extractable nuclear Ab [Units/volume] in Serum by Immunofluorescence 37 U/ML 0-99 [facility] SCL-70 extractable nuclear Ab [Units/volume] in Serum 16 [AU]/mL 0-99 [facility] Jesusita-1 extractable nuclear Ab [Units/volume] in Serum by Immunofluorescence 15 [AU]/mL -[address] [place] [address] DNA double strand Ab [Units/volume] in Serum by Immunofluore scence 9 [IU]/mL -[address] [place] [address] Centromere Ab [Units/volume] in Serum 8 [AU]/mL -[address] [place] [address] Histone IgG Ab [Units/volume] in Serum 17 [AU]/mL 0-[address] [place] [address] ID Date Data Source [id number] 10/19/2019 02:15:24 PM EDT [facility] NegativeNo interferon-gamma response to M.tuberculosisantigens was detected. Infection withM. tuberculosis is unlikely. A single negativeresult does not exclude infection with M. TB.In patients at high risk for M. tuberculosisinfection, a 2nd test should be consideredin accordance with [id number] ATS/IDSA/CDC Clinical Practice Guidelinesfor Diagnosis of Tuberculosis in Adults andChildren [Lewinsohn DM et. al. Clin Infec.Qup0268 64(2):111-115] Name Value Range Interpretation Code Description Data Gay rce(s) Supporting Document(s) Neutrophil cytoplasmic Ab [Presence] in Serum by Immunofluoresce nce Negative [facility] ID Date Data Source [id number] 10/20/2019 11:26:46 AM [facility] NegativeNo interferon-gamma response to M.tuberculosisantigens was detected. Infection withM. tuberculosis is unlikely. A single negativeresult does not exclude infection with M. TB.In patients at high risk for M. tuberculosisinfection, a 2nd test should be consideredin accordance with [id number] ATS/IDSA/CDC Clinical Practice Guidelinesfor Diagnosis of Tuberculosis in Adults andChildren [Valenteohn FEROZ et. al. Clin Infec.[id number] 64(2):111-115] Name Value Range Interpretation Code Description Data Gay rce(s) Supporting Document(s) Myeloperoxidase Ab [Units/volume] in Serum by Immunoassay <20.0 [facility] Negative ID Date Data Source [id number] 10/20/2019 11:26:46 AM [facility] NegativeNo interferon-gamma response to M.tuberculosisantigens was detected. Infection withM. tuberculosis is unlikely. A single negativeresult does not exclude infection with M. TB.In patients at high risk for M. tuberculosisinfection, a 2nd test should be consideredin accordance with [id number] ATS/IDSA/CDC Clinical Practice Guidelinesfor Diagnosis of Tuberculosis in Adults andChildren [Valenteohdeidra REDMAN et. al. Clin Infec.Ayt8674 64(2):111-115] Name Value Range Interpretation Code Description Data Gay rce(s) Supporting Document(s) Proteinase 3 Ab [Units/volume] in Serum by Immunoassay <20 .0 [facility] Negative ID Date Data Source [id number] 10/20/2019 11:29:06 AM EDT [facility] NegativeNo interferon-gamma response to M.tuberculosisantigens was detected. Infection withM. tuberculosis is unlikely. A single negativeresult does not exclude infection with M. TB.In patients at high risk for M. tuberculosisinfection, a 2nd test should be consideredin accordance with [id number] ATS/IDSA/CDC Clinical Practice Guidelinesfor Diagnosis of Tuberculosis in Adults andChildren [Karla REDMAN et. al. Clin Infec.Nbu6872 64(2):111-115] Name Value Range Interpretation Code Description Data Gay rce(s) Supporting Document(s) Mycobacterium tuberculosis stimulated gamma interferon [Units/volume] in Blood 0.00 [IU]/mL [facility] 0.00 Mitogen stimulated gamma interferon [Units/volume] in Blood [facility] Gamma interferon background [Units/volume] in Blood by Immun oassay 0.03 [IU]/mL [facility] Procedure Social History Code Duration Value Status Description Data Source(s ) Alcohol intake 12/09/2019 12:00:00 AM EDT Current drinker of al cohol (finding) completed Current drinker of alcohol (finding) [facility] Cigarettes smoked current (pack per day) - Reported 12/09/19 12:00:00 AM EDT UNK completed [facility] Smoking 12/09/2019 12:00:00 AM EDT Current some day smoker com pleted Current some day smoker [facility] Alcohol intake 11/28/2019 12:00:00 AM EDT Current drinker of al cohol (finding) completed Current drinker of alcohol (finding) [facility] Cigarettes smoked current (pack per day) - Reported 11/28/19 12:00:00 AM EDT UNK completed [facility] Smoking 11/28/2019 12:00:00 AM EDT Current some day smoker com pleted Current some day smoker [facility] Alcohol intake 11/11/2019 12:00:00 AM EDT Current drinker of al cohol (finding) completed Current drinker of alcohol (finding) [facility] Cigarettes smoked current (pack per day) - Reported 11/11/19 12:00:00 AM EDT UNK completed [facility] Smoking 11/11/2019 12:00:00 AM EDT Current some day smoker com pleted Current some day smoker [facility] Alcohol intake 11/01/2019 12:00:00 AM EDT Current drinker of al cohol (finding) completed Current drinker of alcohol (finding) [facility] Cigarettes smoked current (pack per day) - Reported 11/01/19 12:00:00 AM EDT UNK completed [facility] Smoking 11/01/2019 12:00:00 AM EDT Current every day smoker co mpleted Current every day smoker [facility] Alcohol intake 10/18/2019 12:00:00 AM EDT Current drinker of al cohol (finding) completed Current drinker of alcohol (finding) [facility] Cigarettes smoked current (pack per day) - Reported 10/18/19 12:00:00 AM EDT UNK completed [facility] Smoking 10/18/2019 12:00:00 AM EDT Current every day smoker co mpleted Current every day smoker [facility] Vital Signs ID Date Data Source [id number] 11/16/2019 11:26:18 AM EDT [facility] Name Value Range Interpretation Code Description Data Source(s) WEIGHT RECORDED 158.[address] [facility] Body height Measured 68.11 in 68.11 in [facility] ID Date Data Source [id number] 11/28/2019 10:00:04 PM EDT [facility] Name Value Range Interpretation Code Description Data Source(s) WEIGHT RECORDED 161.[address] [facility] Body height Measured 68.11 in 68.11 in [facility] Patient Treatment Plan of Care Planned Activity Planned Date Details Description Data Source (s) Proparacaine hydrochloride 5 MG/ML Ophthalmic Solution 11/01/2019 02:15:00 PM EDT [facility]
--- OUTSIDE RECORDS SUMMARY | 2020-07-12 16:28 | CCD ---
Author Author [facility] Organization [facility] Address Unknown Phone Unavailable Care Team Providers Care Sorter Pricer Name Role Phone BOB MASTERSON MD Unavailable [...] Dhanireddy, Ailyn Unavailable Dhanireddy, Ailyn Unavailable SWAN [id number], T YUMIKO [id number] Unavailable Unavailable SWAN [id number], T YUMIKO [id number] Unavailable Unavailable SWAN [id number], T YUMIKO [id number] Unavailable Unavailable Diana PINTO Unavailable Unavailable GREER, C EDGAR MD Unavailable Unavailable GREER, C EDGAR MD Unavailable Unavailable GREER, C EDGAR MD Unavailable Unavailable GREER, C EDGAR MD Unavailable Unavailable GREER, C EDGAR MD Unavailable Unavailable GREER, C EDGAR MD Unavailable Unavailable GREER, C EDGAR MD Unavailable Unavailable GREER, C EDGAR MD Unavailable Unavailable GERER, C EDGAR MD Unavailable Unavailable GREER, C [...] is protected by Article 27-F of the [facility] Public Health law. If you continue you may have access to information: Regarding HIV / AIDS; Provided by facilities licensed or operated by the [facility] Office of Mental Health; or Provided by the [facility] Office for People With Developmental Disabilities. If such information is present, then the following [facility] mandated warning applies: This information has been [...] law may result in a fine or mcfp sentence or both. A general authorization for the release of medical or other information is NOT sufficient authorization for further disc losure. Allergies and Adverse Reactions Type Description Substance Reaction Status Data Source(s ) Drug Class NO KNOWN ALLERGIES NO KNOWN ALLERGIES [facility] Encounters Encounter Providers Location Date Indications Data Source(s ) Outpatient Attender: FRANCESCA SPAINENAAttender: MARS RANKIN [id number] 01/06/2020 12:00:00 AM EDT - 01/06/2020 04:04:17 PM EDT Unspecified disorder of eye and adnexa [facility] Unspecified disorder of eye and adnexa Outpatient Attender: YUMIKO COHEN [id number] 01/04/2020 1 2:00:00 AM [facility] Outpatient Attender: EDGAR GREER MDReferrer: YUMIKO COHEN [id number] 11/17/2019 12:00:00 AM EDT - 11/17/2019 03:37:00 PM [facility] Outpatient Attender: MARS RANKIN [id number] 12:00:00 AM EDT - 11/12/2019 12:00:00 AM EDT Unspecified chronic inflammatory disorders of orbit [facility] 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 Outpatient Attender: EDGAR GREER MDReferrer: YUMIKO COHEN [id number] 11/03/2019 12:00:00 AM EDT - 11/03/2019 11:53:14 AM EDT Lymphocytopenia [facility] Lymphocytopenia Outpatient Attender: RIA PUENTEReferrer: Yumiko Bhardwaj [id number] 11/01/2019 12:00:00 AM EDT - 11/01/2019 02:34:20 PM EDT [facility] Outpatient Attender: Ailyn MarReferrer: Yumiko Bhardwaj [id number] 10/18/2019 12:00:00 AM EDT - 10/18/2019 12:56:38 PM EDT Unspecified papilledema [facility] Unspecified papilledema Outpatient Attender: YUMIKO COHEN [id number]: YUMIKO HURD N [id number] 10/18/2019 12:00:00 AM EDT - 10/19/2019 12:00:00 AM EDT Granuloma of right orbit [facility] Granuloma of right orbit Outpatient Attender: BOB MASTERSON MD Main office [facility] 09/09/2019 11:00:00 AM EDT [facility] ([facility] Outpatient 05/19/2019 08:08:00 PM [facility] Medications Medication Brand Name Start [...] 11/01/19 at 1415, For 1 dos e [facility] Medication administered onsite Insurance Providers Payer name Policy type / Coverage type Policy ID Covered green party ID Covered green party's relationship to waldron Policy [place] Plan Information [facility] [id number] U [id number] Self [id number] [facility] [id number] S [id number] SELF PAY Problems, Conditions, and Diagnoses Code Display Name Description Problem Type Effective Dates Data Source(s) H57.9 Unspecified disorder of eye and adnexa U nspecified disorder of eye and adnexa Diagnosis 01/06/2020 03:21:46 PM EDT [facility] 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 Diagnosis 11/11/2019 10:41:04 AM EDT [facility] D72.810 Lymphocytopenia Lymphocytopenia Diagnosis 11/03/2019 10:3 2:16 AM EDT [facility] 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 10/18/2019 01:00:00 PM EDT [facility] H47.10 Unspecified papilledema Unspecified papilledema Diagno sis 10/18/2019 10:35:23 AM EDT [facility] Surgeries/Procedures Procedure Description Date Indications Data Source(s) URINE RANDOM TP/CRE RATIO URINE RANDOM TP/CRE RATIO Routine 11/11/2019 11:41 AM EDT Chronic orbital inflammation 11/11/2019 03:41:00 PM EDT [employer] tamika [facility] Chronic orbital inflammation URNLS DIP STICK/TABLET REAGENT AUTO MICROSCOPY URINALYSIS W ITH MICROSCOPIC Routine 11/11/2019 11:41 AM EDT Chronic orbital inflammation 11/11/2019 03:41:00 PM EDT [employer] tamika [facility] Chronic orbital inflammation SEDIMENTATION RATE RBC AUTOMATED SEDIMENTATION RATE, AUTOMATED Routine 11/11/2019 11:41 AM EDT Chronic orbital inflammation 11/11/2019 03:41:00 PM EDT [employer] tamika [facility] Chronic orbital inflammation BLOOD COUNT COMPLETE AUTO&AUTO DIFRNTL WBC COUNT CBC AND DIFFER ENTIAL Routine 11/11/2019 11:41 AM EDT Chronic orbital inflammation 11/11/2019 03:41:00 PM EDT [employer] tamika orbital [facility] Chronic orbital inflammation C-REACTIVE PROTEIN INFLAMMATORY C-REACTIVE PROTEIN (CRP) Routin e 11/11/2019 11:41 AM EDT Chronic orbital inflammation 11/11/2019 03:41:00 PM EDT [employer] tamika orbital inflammation [facility] Chronic orbital inflammation THYROID STIMULATING HORMONE TSH TSH Routine 11/11/19 20 11:41 AM EDT Chronic orbital inflammation 11/11/2019 03:41:00 PM EDT [employer] tamika orbital inflammation [facility] Chronic orbital inflammation COMPREHENSIVE METABOLIC PANEL COMPREHENSIVE METABOLIC PANEL Rou stacey 11/11/2019 11:41 AM EDT Chronic orbital inflammation 11/11/2019 03:41:00 PM EDT [employer] tamika orbital inflammation [facility] Chronic orbital inflammation GAMMAGLOBULIN IGA IGD IGG IGM EACH IMMUNOGLOBULIN ASSAY STAT 11/03/2019 11:56 AM EDT Lymphocytopenia 11/03/2019 03:56:00 PM EDT Lymphocytopenia [facility] Lymphocytopenia IAAD EIA HIV-1 AG W/HIV-1&HIV-2 ANTBDY SINGLE HIV AG AB COMBO S CREEN Routine 11/03/2019 11:56 AM EDT Lymphocytopenia 11/03/2019 03:56:00 PM EDT Lymphocytopenia [facility] Lymphocytopenia CERULOPLASMIN CERULOPLASMIN STAT 11/03/2019 11:56 AM EDT Lymphocytopenia 11/03/2019 03:56:00 PM EDT Lymphocytopenia [facility] Lymphocytopenia ACUTE HEPATITIS PANEL HEPATITIS PANEL, ACUTE STAT 11/03/19 11:56 AM EDT Lymphocytopenia 11/03/2019 03:56:00 PM EDT Lymphocytopenia [facility] Lymphocytopenia BLOOD COUNT COMPLETE AUTO&AUTO DIFRNTL WBC COUNT CBC AND DIFFER ENTIAL STAT 11/03/2019 11:56 AM EDT Lymphocytopenia 11/03/2019 03:56:00 PM EDT Lymphocytopenia [facility] Lymphocytopenia FOLIC ACID SERUM FOLATE Routine 11/03/2019 11:56 AM EDT Lymphocytopenia 11/03/2019 03:56:00 PM EDT Lymphocytopenia [facility] Lymphocytopenia CYANOCOBALAMIN VITAMIN B-12 VITAMIN B12 STAT 11/03/2019 1 1:56 AM EDT Lymphocytopenia 11/03/2019 03:56:00 PM EDT Lymphocytopenia [facility] Lymphocytopenia COMPREHENSIVE METABOLIC PANEL COMPREHENSIVE METABOLIC PANEL STA T 11/03/2019 11:56 AM EDT Lymphocytopenia 11/03/2019 03:56:00 PM EDT Lymphocytopenia [facility] Lymphocytopenia BLOOD COUNT COMPLETE AUTO&AUTO DIFRNTL WBC COUNT CBC AND DIFFER ENTIAL Routine 10/18/2019 1:07 PM EDT Inflammatory pseudotumor of right orbit 10/18/2019 05:07:00 PM EDT Inflammatory pseudotumor of right orbit [facility] Inflammatory pseudotumor of right orbit COMPREHENSIVE METABOLIC PANEL COMPREHENSIVE METABOLIC PANEL Rou stacey 10/18/2019 1:07 PM EDT Inflammatory pseudotumor of right orbit 10/18/2019 05:07:00 PM EDT Inflammatory pseudotumor of right orbit [facility] Inflammatory pseudotumor of right orbit PIERCE VISUAL FIELD - OU - BOTH EYES PIERCE VISUAL FIEL D - OU - BOTH EYES Routine 10/18/2019 11:37 AM EDT Inflammatory pseudotumor of right orbit 10/18/2019 03:37:17 PM EDT Inflammatory pseudotumor of right orbit [facility] Inflammatory pseudotumor of right orbit POSTERIOR SEGMENT OCT (OCULAR COHERENCE TOMOGRAPHY) - OU - BOTH EYES POSTERIOR SEGMENT OCT (OCULAR COHERENCE TOMOGRAPHY) - OU - BOTH EYES Routine 10/18/2019 11:37 AM EDT Inflammatory pseudotumor of right orbit 10/18/2019 03:37:11 PM EDT Inflammatory pseudotumor of right orbit [facility] Inflammatory pseudotumor of right orbit Magnetic Resonance W/O Contrast Materials 07/21/2019 1 2:00:00 AM EST [facility] ([facility] Magnetic Resonance W/O Contrast Materials 07/21/2019 1 2:00:00 AM EST [facility] ([facility] Magnetic Resonance Angiogtaphy Head W/O Contrast Material(S) 07/21/2019 12:00:00 AM EST [facility] ([facility] Magnetic Resonance Angiogtaphy Head W/O Contrast Material(S) 07/21/2019 12:00:00 AM EST [facility] ([facility] Magnetic Resonance Angiography Neck W/O Contrast Materials 07/21/2019 12:00:00 AM EST [facility] ([facility] Magnetic Resonance Angiography Neck W/O Contrast Materials 07/21/2019 12:00:00 AM EST [facility] ([facility] Results ID Date Data Source [id number] 01/06/2020 05:23:00 PM EDT [facility] Name Value Range Interpretation Code Description Data Gay rce(s) Supporting Document(s) Progress Note [facility] EYFLDg4qCzSKNbWf73/DXShlGCIjp4FyNCunHEp7WGapHGFpA4CiINF2qH8ePHU4ATrHEjTuLvAfFYU4 lbm [file] hzHyDrXI9PWo8KIrA9MTI2mJYxEt2RHoGzUVVXFoYbFD2KXRd= ID Date Data Source [id number] 01/06/2020 05:22:55 PM EDT [facility] Name Value Range Interpretation Code Description Data Gay rce(s) Supporting Document(s) Progress Note [facility] ROOZTu0oLvMUHbEv72/YBRudTASfw4ZeEZizTOe7ETsrCYQzS5SeGOV3xN1tCQY2RJyYRcPfJhMtMWS2 lbm [file] ICAgICAgICAgICAgICAgICAgICAgICAgICAgICAgICAgICAgICAgICAgICAgICAgICAgDQogICAgICAg ICAgICAgICAgICAgICAgICAgICAgICAgICAgICAgIC AgICAgICAgICAgICAgICAgICAgICAgICAgICAgICAgICAgICAgICAgICAgICAgICAgICAgICAgICAgIC AgDQogICAgICAgICAgICAgICAgICAgICAgICAgICAgICAgICAgICAgICAgICAgICAgICAgICAgICAgIC AgICAgICAgICAgICAgICAgICAgICAgICAgICAgICAg ICAgICAgICAgICAgDQogICAgICAgICAgICAgICAgICAgICAgICAgICAgICAgICAgICAgICAgICAgICAg ICAgICAgICAgICAgICAgICAgICAgICAgICAgICAgICAgICAgICAgICAgICAgICAgICAgICAgDQogICAg ICAgICAgICAgICAgICAgICAgICAgICAgICAgICAgIC AgICAgICAgICAgICAgICAgICAgICAgICAgICAgICAgICAgICAgICAgICAgICAgICAgICAgICAgICAgIC AgICAgDQogICAgICAgICAgICAgICAgICAgICAgICAgICAgICAgICAgICAgICAgICAgICAgICAgICAgIC AgICAgICAgICAgICAgICAgICAgICAgICAgICAgICAg ICAgICAgICAgICAgICAgDQogICAgICAgICAgICAgICAgICAgICAgICAgICAgICAgICAgICAgICAgICAg ICAgICAgICAgICAgICAgICAgICAgICAgICAgICAgICAgICAgICAgICAgICAgICAgICAgICAgICAgDQog ICAgICAgICAgICAgICAgICAgICAgICAgICAgICAgIC AgICAgICAgICAgICAgICAgICAgICAgICAgICAgICAgICAgICAgICAgICAgICAgICAgICAgICAgICAgIC AgICAgICAgDQogICAgICAgICAgICAgICAgICAgICAgICAgICAgICAgICAgICAgICAgICAgICAgICAgIC AgICAgICAgICAgICAgICAgICAgICAgICAgICAgICAg ICAgICAgICAgICAgICAgICAgDQogICAgICAgICAgICAgICAgICAgICAgICAgICAgICAgICAgICAgICAg ICAgICAgICAgICAgICAgICAgICAgICAgICAgICAgICAgICAgICAgICAgICAgICAgICAgICAgICAgICAg UVu5Z0gjKJZyFEXnCM0qQYa1Tc5+JApINtJnRRB3lr GftF3QOF2en1GjPZkkPICpj0HcOOb0XO8ZEOWfQOplZI4ISPkybh8VBXWmWGKpcMOOv3zsRtQjHFQ8HS LkDswzFS6TBVBzS0fqloIqLFBxBCZCXIcxNAHQQZyjEKVMDACwTRKbIlCtIkQgTOGfZS7VQSBhD123qv FdQX3RFv5SPkFrWE1hsj0ESgKaXSMaIrfYToo8FQms QX0KyPHkjDKrBFBjWSSCWxAvP8vlm2ViXxTcESPEPIaaKC4Yi0WqiJXqJEe+Zj0HPG3mo9GaFYjsTHTz VN7pms0TTDdDUaLwD6BtgYpdQOZpf5lhDCZaCE2fhIAwALR8KHQjIBAnlTGwHAFoZ6nrJQfrfsDhnsUu NW2SCXT2JWudKp0xRJBePSGuOsVeXALLPR5TQVXbLB LrjCXcAAQqDMCTGE9YEPeeBUV4WGKmplHhyNXfXDmkID0PHMJvusLfPpKhLNDDNEh+Rx5LBE0jt6GsPO anOxEwQF9zfx0TJScTIaGyP1E4xERpN7J5NXhpVw1KHCFtTPIdLhpsOLNCMUxrOU7LUX7thiX5VI9VtI MpZJDvPFFhrUSsINr6L93mzCEeMIsaXW9JRSR+David+ Cz8WBYQdSUUuGAHpZvLsXUZMBvJfP4FnG4RJz0AbL5GuAS09yQxpzlLgLVmpEB9QJO9dTUVeJQWQXP0S qSQxxD4gxjHmWJEaWOYIBqTfY73srJUlJVKhHPK7IEJtSg3HIVZqX3QzchHgoOikrlGwAIApRMLGDB7H KUvygzKuoAYviIqpOL60fJmoBH1FZn3NTpBjXQ7lxl 2IiEPwQy1MUPBgJe0SAZSjCULtXHWsAJF2IZDuWwGqKAkoIVElLGKbVKL8GFWwVURgLN1BJwRiVEIyNd e0ZkksUPJqAJBclz6SWEQoBXQmIZH7GxFeQGVxYPUvQQaqQMYvYPUmMFC8NRBrHEPhRI4UTtXcMOHrKC Q3KaCuHAMkDHVsgq9MEEFtBYGsCee1UYLpRAChAFSr TMqmPJQcMOX3XTX1UKPlBGJePC3QOxItOLUwYMRqVuTdQZQrGBTwvj4WPYNlSHQcNMd5XYUrTUCxDLPj TVeaBSIeROS1EXflQNOhTPJqPX8AKdRxLUPwFUHrPNdjKOSaTFZmly0PZNJgJNVqKpC3BeDmSOBtDALi DFucSYMlECLmTXTaVGDlZKIoQZ9VLqYeTCPkIWVjKX rzACYyUHPcxu1ODGKuXIKtGGHhYlClOHIaNEXnMMjpMCXnPVO8FVY7TBOaHMTuLD5VEpToTCMlHQO8YK csQNZmNBFhke2IZSWwBYXcNRE0TwGcPAKgIDGuYNbvRVXwTLJ5BrT6QBInMSRoLQ0QVhNxNWZfKRI4DS ToAKJaMIPpke9QGHCkRXZdMmG9FmReQRQfLTVyJNan FEYhMNN3QfUhELNyZRIqRT9JVcSmWHYzByx5BBPfBJErASLjzn1VGBLiEYGyGPK0PGGkLARzSMUwGMkz OOWqLSR1BiW2WYTcPUQuWH7LBwJhFUFmXhnjPEJtUTAfJOOeeq5JDOUpWPYeHQTjIOLqTLSrAWQwQBrm EKWsJMW8NnO2QUVqQGKaMN6VYxYrZGEjFxFpLsAmFP EvNMDlbi7RWFGkLQBeZKB2ElQkSRGcPIAhAKgfQCJbRDUzRMZ9JQEhLSAyDV1HLsClOUNuGmE8QyYrEZ YhWJLsig0IoWVvlOktim7ONCcZEi2IrTcaWSVwUKppEi7vpSNiFcQlZERQNn6OkeXyLDPzTWPBMXnvDR PdFAfkEJFhIAx9XQd2JttsCmA7PDMrFnVoPKpqWnG6 NIE3NkN5PlOtGJJuIhS8AVx2PTWoSEtlCoW1XZW3JWQsGDs0SzS+HP0oDIi+Nf2Tf5WnrhE6ixCmZScu EVt0CL8TCSRLL4DWNy== ID Date Data Source [id number] 01/06/2020 02:30:44 PM EDT [facility] Name Value Range Interpretation Code Description Data Gay rce(s) Supporting Document(s) Progress Note [facility] PRDACz5xXyMLLpBw88/PHNmjVLEnn4MaCEvnTQj0ABrpZEBbN8MuXWZ3dS2bKVK0LTcQPqQcNlObJUP5 lbm [file] AgICAgICAgICAgICAgICAgICAgICAgICAgICAgICAgICAgICAgICAgICAgICAgICANCiAgICAgICAgIC AgICAgICAgICAgICAgICAgICAgICAgICAgICAgICAg ICAgICAgICAgICAgICAgICAgICAgICAgICAgICAgICAgICAgICAgICAgICAgICAgICAgICAgICAgICAN CiAgICAgICAgICAgICAgICAgICAgICAgICAgICAgICAgICAgICAgICAgICAgICAgICAgICAgICAgICAg ICAgICAgICAgICAgICAgICAgICAgICAgICAgICAgIC AgICAgICAgICANCiAgICAgICAgICAgICAgICAgICAgICAgICAgICAgICAgICAgICAgICAgICAgICAgIC AgICAgICAgICAgICAgICAgICAgICAgICAgICAgICAgICAgICAgICAgICAgICAgICAgICANCiAgICAgIC AgICAgICAgICAgICAgICAgICAgICAgICAgICAgICAg ICAgICAgICAgICAgICAgICAgICAgICAgICAgICAgICAgICAgICAgICAgICAgICAgICAgICAgICAgICAg ICANCiAgICAgICAgICAgICAgICAgICAgICAgICAgICAgICAgICAgICAgICAgICAgICAgICAgICAgICAg ICAgICAgICAgICAgICAgICAgICAgICAgICAgICAgIC AgICAgICAgICAgICANCiAgICAgICAgICAgICAgICAgICAgICAgICAgICAgICAgICAgICAgICAgICAgIC AgICAgICAgICAgICAgICAgICAgICAgICAgICAgICAgICAgICAgICAgICAgICAgICAgICAgICANCiAgIC AgICAgICAgICAgICAgICAgICAgICAgICAgICAgICAg ICAgICAgICAgICAgICAgICAgICAgICAgICAgICAgICAgICAgICAgICAgICAgICAgICAgICAgICAgICAg ICAgICANCiAgICAgICAgICAgICAgICAgICAgICAgICAgICAgICAgICAgICAgICAgICAgICAgICAgICAg ICAgICAgICAgICAgICAgICAgICAgICAgICAgICAgIC AgICAgICAgICAgICAgICANCiAgICAgICAgICAgICAgICAgICAgICAgICAgICAgICAgICAgICAgICAgIC AgICAgICAgICAgICAgICAgICAgICAgICAgICAgICAgICAgICAgICAgICAgICAgICAgICAgICAgICANCj w/tZFkQ8azhSElorL7D2kuDn6RKr2IHX6my2SeJTUu WEtbwzMmKzfBVeBvDGQzUkyJCpo8BPnwEI2MmLHqY4ZmB6KjLGiqKR2PSUZcZGXhiPXlEZJeZCOnCvF6 KXZgHLmdUN8IyAVaGHjaFVZuHJAxBR3XZHGgP597wgRgWK9KPm3MXeGrAU2upf0FEEshANQdFnxWKas1 JWweFK8NnJInyACrCHFwLKFVLqKrD2oef3EcAoHnHM WBGFiyGV5Rp2PbtHTzBWz+Gr0NIL2yl7SsPRawIZMaSW5yvg3GMDxPVyBgV3WoiZtaFKNpy2joGQYwJV 5mwUBiOIR5VUZmMuSguYCXONM7CF4aUD1TODP6BYwfPS3wBUVdPSWdHdJ0TQCQCU0CTAYpOVDcjBZbTK YiFKAWMN4FMPvaCEX1WNMpjyKuxIOrYEfmPP2QHANk bnQgMTkgMCBSDQo+Hm6RSU9zv1GhBUxhFQFoJO3clk8GYOkSPqBmK3L6mKYsU0C8UPzeUl9ISEHdCSAw BHsjVMHZHVpwVX9LMH4igzA6WU9MbNFgQNVkMNNnjRNsKUf4Q38ylMHhKZofON7GZSG+David+Vc8UDOIa XHBrHURbIqDlOSXXHuLgG5ItE8YHk8LdH1KwGO51fV xhemRbDDlzYQ0RWS7wUAUjSNLOEL3GzPCqvS5qicFtFYAeXYJMMmTtA41rqPNgOSDnYCQ5QWCnHm5AOW OmS7LvbaCwbQyvszQlJIHqJQPBZD4YHZhdfsHtbNMbdMkwJI15bKtiPN7BTt5KDyWeBW8fvu0QjHGcDm 4PJIQaGr6VIQStAIGwCWZgLKC3OELaThPkFRlhWRMi KEFyMLV0SGIkHSDgHE8OYkMuGLWsVNH8VlCdUEZoEIXiwf2ODTMgGZKfEDL0AgXuPSIwZRQiVJnmHBLy ZNUzWGM2FDVjUUGdYK3ZQgXdGJKiACX0AWJoHIGpTHWnyr7ZIYCdDGKdLKatHSWlWYTwGUWfGBnbLFWh FBIrSlU4LWTkDVBgTJ9EUdCaDBKmDHM6AfVrLHDiSA Mepm1HNXDoTYJlZtO9UWCkYYTmFAPyIPmmJYKoEDM3SKe9VNTlLEOzOC3CFlXuDIOwGOLzQGTbVVIsEO Hltn5AZSAkLWQfVTU1ErBgBZXaRNBmASioTQYtZXJ9VKEtRODsGCIvMP8GOhEgLLVpDHRmLGrmNOItQQ Iqnz3TBGNjVUBlLgU3TwZvWWBdOEXlFEtpWBHgERI5 FhU9IYQhTDBbJX0IKiMzMUKtSZP6FXVfBICsOCDwhw7JCPWpQLMlDmD9HePfQUIdJXGmTEttIJMqHUQ7 YIycVFLaHHKgBS8CWlWhDKHaGDe7BsYjNIVnXFWwax9IHABdJPZmPKwoRNXmAUHqGRZqHFf9aaMmgBUm BSr0NZ9ZJ4UwmgUnUdGZMv1Me993VINpEMQnHx1TU2 cfQr9fKCLyDVPTXn3GUPo8HEPmIBT1DFPwTJRwTUFdEbVcNBU0BZO5SPOhMNK7EXJ+ITplUvQ5Kya6IW QoAkP1MxZ0BkC4FYWxIir9EFPqWdS4Ay1sDIBCAy9+JKrwaKVwbZwcAWBUDnS2HIWxNDxaIVDAXr9D ID Date Data Source [id number] 12/13/2019 11:15:59 AM EDT [facility] Name Value Range Interpretation Code Description Data Gay rce(s) Supporting Document(s) Progress Note [facility] ZIRVYo3eSiOBPlVz32/TTWylQCIvz7AbFGwaPDb7MCyiPRCtZ4UxZYK9jN2vHWC5JQkAHoKqNgJvGjMd lbm [file] ICAgICAgICAgICAgICAgICAgICAgICAgICAgICAgICAgICAgICAgICAgICAgICAgICAgICAgICAgICAg UWHiDOVaPGBmWY2RTTCpFRQvFEJjIUDqBKPeELAsBTLsCGLsOAQxEZNeEKHjBEQtRKCzFHNjBGFdHKGc ICAgICAgICAgICAgICAgICAgICAgICAgICAgICAgIC GmDJUrOUCbSYMqFXGyCGSpRBHaXB1EPFWhFVGhHALoXELaPSJcRBRkALOkKLUqHHCgHRReCVRoXWXxZY AgICAgICAgICAgICAgICAgICAgICAgICAgICAgICAgICAgICAgICAgICAgICAgICAgICAgICAgICAgIC GpYL0DKCRcTIWsNXPlCHBkYQEbIRFcLEDmYCJgKLRj ICAgICAgICAgICAgICAgICAgICAgICAgICAgICAgICAgICAgICAgICAgICAgICAgICAgICAgICAgICAg AQEeFGByPMTmGLByGV8XPAWuDWXcGEQcECNxIYWiHFMuGTSlAISqNFTfUCZkFEWpKWFzCZRnLAPjYUTu ICAgICAgICAgICAgICAgICAgICAgICAgICAgICAgIC OuJXJtPUAiHNRmZTEtOQMmNONiDOSjWK7EULYnUVWrRYZuOMJvMYScOAVkAOPvHBYzOUHaIMJzSEIzZM AgICAgICAgICAgICAgICAgICAgICAgICAgICAgICAgICAgICAgICAgICAgICAgICAgICAgICAgICAgIC HqMDXdJV9IOYNyPLQkFEAcIHZaXLLcHVCsGMRqLCUz ICAgICAgICAgICAgICAgICAgICAgICAgICAgICAgICAgICAgICAgICAgICAgICAgICAgICAgICAgICAg EDFrMEQgCVHrPUXnKORrDZ4HKHUmYIVnCOElGBWhPREmOYKoXZZaVKOvOWQhSDGhWEIlFMEfTLBtUMKo ICAgICAgICAgICAgICAgICAgICAgICAgICAgICAgIC ZvTSAiLMBiBTLiARObSHIfEGCrPNYcJWOjQM1EXSCaUYVzNNQlEHQySWOrADUyCSBfTXJaOSJeTKPrLX AgICAgICAgICAgICAgICAgICAgICAgICAgICAgICAgICAgICAgICAgICAgICAgICAgICAgICAgICAgIC HnLWXvDYFrYJ8WMHIqQDVxQKGhUYSkYCQhHREyKDDz ICAgICAgICAgICAgICAgICAgICAgICAgICAgICAgICAgICAgICAgICAgICAgICAgICAgICAgICAgICAg GNOgKOMmTKLkZOCyIYQfPTZrUI2NCH29nPHfq0G3JAXqIO3exnd/Hc3ZRTfchcRxpHNxGK4NNeYxOR7z yl5RSdSmXN7oqj6DSNkLSwFnC5B4mTKyNEPkIJIAUs DeX23bCZitUh65YTdsZDItYiOvFZt5Wq4BNyBaI6jvYOZxJzQ4ATUxEdAkKBgsPS7Hz7GsnDPvKPq+Pg 2MDL5lm4IuBJczYLAzLZ9poo4WEPuLFtUsG2YgjnE5UOEcSOZrVr5DRMZlLXHsxQKlOQLgBVRUBkKkJ4 VnmT47JJHRWd9+IGqvcoHsDqkVCbWuWQDgp6GvIDv9 IP1BRYCeJMm4kGPjFGSdZ0Ddi3OeWp10HYGwFllqUK8yn8FzbICDXPQmcptlSEUfIYMjYr5qPc4vBKNg HPQqArAqDZWHBF5QJGUpZMBrwIGzDOAlVUSGBT4CKHvxHNG4LNDmtlQffGJfSVqgDU1NYGTixbQnDJjc MCBSDQo+Ks3XMX9vq6SyMDkjQBNaWC1xrq4XXHuKVg XfI2C2xTVdH1H1PUnhQs3RASJsBECwXHbcBNRVGKtgUH2PNU1parM9AZ4ZcTFpQAKxLATgmAOtKTe0B2 7yuGOyCBjeFT7RFWQ+David+Da6XTDKmCGHfDBGfKzHsFKTWKqAoT2HvV0PDs8OsJ1SzME00zZtprvOfZN vsCW4MGV0dACWxTAKVFT1EcTOknE9eknEiRMXeKXOJ MpUaL72auCViQIOfQPA7JZQwCn4UUTLnM8UpvmOvjFqcnyQlUYIfRHVYAZ5WZHdruxKhdICimTtqKR03 kDbgRL5XDl9GQeSaPD8ora8EpFLdCb5WWTJwFg2QOGKpSFEnQQQdYRR6SHQyExDuJKeyCSDjXOKjIUF3 SFNwFSRfKW8XNpKiDLUhVWu1GCyiTSHcQSPmsr8LGW RxGUUfTYSbRRNgZGIqEKLvKXfnKJTuYSVxWLJ9NCRfFTJlDA6GSiTtCYSjHBP4MjNeINYqAUJecv3JOR OfVKDhJasjTgTfBVGmIKVrXKcdWAEbUESkOdz2EHBmHGBmAG8FMqXvXWJcRSY0HUFsCWXcCCZkjg7ORX TcCIGcUHY6HzBiPICaLRUnYDfcUNGfVEY7BCSyMHCl NAVfOV9QMyIiECUiWBLnSiOtVGAwAATpec1YSOPiIQHdRJJkUTRsBPFsGPTuNNdgUACmUUU6LLW2KKGj JAJjRZ7UQyKvUPLfMVphJMVsCIBxGXLjyy7SFOIqWQKgBoJ0OPSkQGVcKCEbQIteOGPlMFM7QgT1MZQe EUBtLQ6XZcDfRUYkWEe8RtQrQCQkEKSaql0MEXDyGB YjHPX8NKSrOSPfZXGaKWmxRPIjXYN8AoArIEZxDSXkWD7RXbWwCYGkFIj7UMBvOLQyFKSmzx7TQNHcUO FyYPgyQzIsKVXjQUUcYYt1rmXhgKPeVZx3SE6KR4AmsxWyEjYQWy5Re471SJSyNKZaMh2ER0kwCl9bIU NtKVLRPf5VONy7Dvu9LYKeCKC6AdPlPjS2RSetCUF3 VBCpTRVvGdE6X9E+GYb1URn8MNVuRLooKUHpVOp6G8YfJirbY0FpKDZoRBd5Cd0lNYYBFg9+DQpzdGFy dBjhHMDIAnDlXPc7RChfJOCAOh2G ID Date Data Source [id number] 12/13/2019 11:15:54 AM EDT [facility] Name Value Range Interpretation Code Description Data Gay rce(s) Supporting Document(s) Progress Note [facility] QXTQUl3xQeZTOoNk13/MMSquHYYbz5KsIMnbSXn8XVnpFPUtC8BxBOZ3wQ6nPXV4RUhEJjOfIhSbDjBm lbm [file] MECHANICS HANDYMAN+Jx1LUPJsUTp7K9L5KWHlPYr1M1NEF7WMHGUuQH mxHFmuZKJnXVx7I1T6DVAsV5LYG7Nnihujsa0+CE9IN81OZYSqQBq5Z6A0sNKaT2O6fCyOsJA5ZC5VUY 2XvDz1nMFvzH7+WU7SM6UCRqUgHJa4P5V2sMChT2V8lNgXbLH6CW5YTB0ObANyRLJjvrLiUs5kV3YQBH fGXuZRRAT4ZX9NnZBdSV9RkFKEV8DdtACxFw6wKSpa aQEhjH0gZn9dDOpnWA4OLoZVQZrZGAG0XZ3FeSBcYC4XaHCQV7DvgISkOt3dBHvidKThqg9+DE9BDCOv No5PNn5+PXrxijAsCilNIsHrDFVtq0IvLVr7JV3EWG7ciMymBNL6Jr0PlYV2wXEqB3tOFZ1XwBOhP14x nJFnMALyUz7DDlT0ceJbfQ0CGJ62eBQmc3W8XJViX8 ebRVzty21oXFicYTkRUW6gRKZEQUqqWYzkXUL0VwAgjmfvKGAaDh3UBoSbUJs3gC4tsJC4LFN4WrycfW GpVLehItCaQdIbNfK9mYxwvsw5NZrlEB4lEPftjevmMVVmKnr+TTtsTYGaPBGkVxmMRGVuvP8nchD8vg JvFKlphANiPv8kv5z8TevaJh3rXb1eQMy0AhVnEqWf IZTpWg4mdR58BQixlkFoBf0WXpMaOHA5T2WsRafZQIT+XRvkEHmcsAy2gHCoTCMiFy4EEPZkRVRaXKVf ICAgICAgICAgICAgICAgICAgICAgICAgICAgICAgICAgICAgICAgICAgICAgICAgICAgICAgICAgICAg ICAgICAgICAgICAgICAgICAgICAgICAgICAgICAgIA 0KICAgICAgICAgICAgICAgICAgICAgICAgICAgICAgICAgICAgICAgICAgICAgICAgICAgICAgICAgIC IiLZGyWASxARDeVCIdKXBcLCNhZCEhEZZaEMKyPQMoUPWpVRNbEJEcVN4AAQXyOJOaIPDcDJYoYEIuOG AgICAgICAgICAgICAgICAgICAgICAgICAgICAgICAg YILcXFBmEUGxJISaGSGrKTFjGSRnRSQqKMFkEIIcUPOaPLBoHYKlEIJgTTGsENXhUBAbWB0UCIWmIBNn ICAgICAgICAgICAgICAgICAgICAgICAgICAgICAgICAgICAgICAgICAgICAgICAgICAgICAgICAgICAg ICAgICAgICAgICAgICAgICAgICAgICAgICAgICAgIC YmKT5LUUDuEHMcGFHcTGVgXSAnYQSdHRJxASScGRFtEGSpMWAcQFFxSMSoPHZqQTCdRRPlBDYbUFYeYK WjAEJfADQwLIBvWTUqJOIyRYBgTWWdHIAhZBYyTJYgWUFdVGWaNYIrEJBnWW5AGYSjFWAiQWRiNSVvFQ AgICAgICAgICAgICAgICAgICAgICAgICAgICAgICAg YUDjLQDpVTUbLBPfEQPkJBDqPJWaUHCrWFEmOCPzQWIeFBQiHMXuDARsSJWyHPYgDAZsAAJwQH9PXSXm ICAgICAgICAgICAgICAgICAgICAgICAgICAgICAgICAgICAgICAgICAgICAgICAgICAgICAgICAgICAg ICAgICAgICAgICAgICAgICAgICAgICAgICAgICAgIC QbRXNvNI2GAMIdKFHaDRQmPQKzIKIdPHDyXTRyOGGrZGNsSGFrUJUkZVPxDZUfFOPtKEQdGXWuWNMjAN TgRRYuYDOkUURwUIGfGGFqFRNrOBKqHCSbEWIcXSUfBEJqRAYdWTCyJZYsOPZoZH0XDZZcQSAoHXPqLL AgICAgICAgICAgICAgICAgICAgICAgICAgICAgICAg DHClIQVwPDNjISEtCQFaROYyNSIdQUYbSSPsFQFlERBtGCYnQWWzUXQoPIVgAYZhJNPeDAPbNWYiMR5W ICAgICAgICAgICAgICAgICAgICAgICAgICAgICAgICAgICAgICAgICAgICAgICAgICAgICAgICAgICAg ICAgICAgICAgICAgICAgICAgICAgICAgICAgICAgIC ZfANVvHEBdMI6GXU40fEIqs5M5JUDoOI9fkde/Rd9WSQcncuStsYVuXC0AKiAsWP0fdr1TGmNmLJ7ivt 8OIPzTYyGfO5N5rZQgINYiWEWYXvKyQ72aTIuyNw91QDkoYVPpQqYtVZg1No1AJpLtP3jqEDWgNhW6QG AgFvN9BSRkUxL9SABeBfXiUVBdPMYxSZMuCXMKPJI7 DPAxYdQrIgTsZLZhFT2YXMMpQ511ajPxDm4DVg7NKgHdPU5aud5HNpJtNJRoDfgSXhm9PJikBE4KiKGa qGQtQTCsBBQACwEgC7qda6ZjEbXzTTMRUOkiRF0Zu2XihIVnTEs+Ly7ZTT9gx9InRExiYZUtZL2pfc8S UKgACdBsR4KceJybNIPoe5zxIGPtDI8nzHLkEOE6KW wfcfRiVS2wGObbwZpgDeJkYJOvKk4qQx5vLMYmELEeAgUjIKRLEX6XRLXbSWAfgQLtDXOjCSBVZZ3FDM onQRR1GVPvsgJxeXCrOLfvZU5OHOHckdCyXdThCUZMLQk+Eb4CVT4ou5SqQVdgTdMgYS0lmt4EVVaSPx IcL6U1aXKpJ6Z8KEzoOm2QMXSxXWNyLeOlAGYXRZsg VC2TIJ0xrkB5LX5IlTPwXPSzAPWanCUmVDz1O54ckHTeDTcxVM2STXJ+David+On1WDIGmWUMfKYEuUyJu FKQCGbEyI1KzA9GPx9ZwO5RlNP24mDhigjLpURsqQE7CQW0kIYOkQFVHEL8HgMHkbM7msxRyKSDmXPOY JxXuG26eeQVuFJKoFTGtJWRgKe0POOAiA0ZzgpNmjX dzfzKiSETeWUVNDH5VBQwvgqIxkSQdnEumRN78kQiuZI9ZJd5GDeSpBH3jnn4JsQIeNz0WNSOySv6QDK HwJRJyTAMzAQD0UBWwNoWcDNchDGCzIYCxHJO8SWZrHBYmCS0GDiHbORHeZuoaTzMcOUNaFYIjbp2CAG WuJTQpBVd6HyRfPLMjYKInJQmpGWJlTDCtNVZ6EMIa XEVxCX1DVuBgHLGaGLN2UeepSQEdJPVhcr9EUDFwWKDoIsu1NcDpIMFxNHPiFGbdPQUhYJH1UVPjLYZl CGRzTC8YUtYuKAOnPGtiLjvoFGQaERCeus7GERGnXGTfCYX4RsKsBIDbVUAzLZaxOJNrYUZ2PpC2IXDs OUDuTM8GGsIpVZHxFHPwKMheFPUoXSKnuw9QWBFxYT CnDxM1VZHuMEAcYCWiRRxdAXNzTKS2CKJ3XWUzRNIxPS7BLwUwRVXdZGR3KVFpKAHgQTJzga1DEFFhSS VlVAr2FZJhQPMnTMDyYNthQDLeSMWxFTN5NSDpAXKuXF0LWzAwKAGdYbN7RxBvYGAyZHKhro8NBBWrDZ TePCz7MAThAEIjMJFcUUszBQHjUKLsTjArKYJyOUBs LS2FTnRiLTTeHqR9PgegNFEbGTNvub5LFWFsLCKxLyGqXZFbKLPtBRCtSCmrVZPrXZG6JEsgLVEfCEYf AU9YKuUiSNIvTzKbAXLxMVUfYRBxji9UBMPsRILcCRW4VSSqKUVbCZPcLAfnELHvORX5NWWeNJCwHYCk GW2YXpDcKWVzHpRdDnDtFACaOVIdll4TUYYdTPCkDq CpBENpUWRmKBXjXKbmCIKhLTE2Bxn8MANwEBWuOI1ORtPkGTQfItL5AbWgMTVnQUZtmj6EYWNnEOBrOf u3IOBxFQKdRGQfARlkENRlWAJ1ZNLdYVKaHZLrZF7VGfFbIRKdJccuDJUkYEAyXCThng5VRMXjBVNmXM H3QrLtLUEuFMGgKLkeMYEiEIYtIIJ6KTPiTVDtAG9J NwHaSNTrFLTeRDDkRNSqTOFamy1HZAOrOGF8RHF5YvWiSIZsMYLxEBv5twGcvYYcOUc8ZX2AI8JlmwKd MziCMi6Bb334BOQ0ACVmOr6KZ3ceXl2hCIXmAWCNVh7AIMh2YFPqZqR5GECwUWncNhG2ZnqgEUTwYzZj ZjljODczZTA+AUz9EJV1KQxtNBFlLDUdHqTvHRWsKX AyQMRhPGZ0UuUhHG5eDJFEBf0+FHtgjVZnsEjmQKHVVkCzAOl9PMamEIREEu2P ID Date Data Source [id number] 11/28/2019 10:00:04 PM EDT [facility] Name Value Range Interpretation Code Description Data Gay rce(s) Supporting Document(s) Progress Note [facility] RDNZDi9bRyLNEpBh28/GFUweXOZtc8NbAAttWBj1BGxxTZOcI4CmFNI3nL1lDJL0OHeZGpRaIrBdTfJ3 lbm [file] AgICAgICAgICAgICAgICAgICAgICAgICAgICAgICAgICAgICAgICAgICAgICAgICAgICAgICAgICAgIC AgICAgICAgICAgICAgICAgICAgICAgICAgICAgICAgICAgICAgICANCiAgICAgICAgICAgICAgICAgIC AgICAgICAgICAgICAgICAgICAgICAgICAgICAgICAg ICAgICAgICAgICAgICAgICAgICAgICAgICAgICAgICAgICAgICAgICAgICAgICAgICANCiAgICAgICAg ICAgICAgICAgICAgICAgICAgICAgICAgICAgICAgICAgICAgICAgICAgICAgICAgICAgICAgICAgICAg ICAgICAgICAgICAgICAgICAgICAgICAgICAgICAgIC ANCiAgICAgICAgICAgICAgICAgICAgICAgICAgICAgICAgICAgICAgICAgICAgICAgICAgICAgICAgIC AgICAgICAgICAgICAgICAgICAgICAgICAgICAgICAgICAgICAgICAgICANCiAgICAgICAgICAgICAgIC AgICAgICAgICAgICAgICAgICAgICAgICAgICAgICAg ICAgICAgICAgICAgICAgICAgICAgICAgICAgICAgICAgICAgICAgICAgICAgICAgICAgICANCiAgICAg ICAgICAgICAgICAgICAgICAgICAgICAgICAgICAgICAgICAgICAgICAgICAgICAgICAgICAgICAgICAg ICAgICAgICAgICAgICAgICAgICAgICAgICAgICAgIC AgICANCiAgICAgICAgICAgICAgICAgICAgICAgICAgICAgICAgICAgICAgICAgICAgICAgICAgICAgIC AgICAgICAgICAgICAgICAgICAgICAgICAgICAgICAgICAgICAgICAgICAgICANCiAgICAgICAgICAgIC AgICAgICAgICAgICAgICAgICAgICAgICAgICAgICAg ICAgICAgICAgICAgICAgICAgICAgICAgICAgICAgICAgICAgICAgICAgICAgICAgICAgICAgICANCiAg ICAgICAgICAgICAgICAgICAgICAgICAgICAgICAgICAgICAgICAgICAgICAgICAgICAgICAgICAgICAg ICAgICAgICAgICAgICAgICAgICAgICAgICAgICAgIC AgICAgICANCiAgICAgICAgICAgICAgICAgICAgICAgICAgICAgICAgICAgICAgICAgICAgICAgICAgIC AgICAgICAgICAgICAgICAgICAgICAgICAgICAgICAgICAgICAgICAgICAgICAgICANCjw/jUXiJ9ogwU LgnmR6J2hoKe3ZCp4NCW0eh7VaEATmUBiacuBqZnqA HgPrPDPmIajYWnp8BVzsND2DhXKgU5RaO1YbKKhtFQ0HCSFwXLJwwIAfZTGqSMIhZtK1VOCeXOauDA3C lDVpGHueVMKpERAuQK9BDWXtO432hzTwZZ3XSo0FJfXqCT9rcf9YXZdfZTToNqfSAvb1LBbxVZ4HxTGv fDVuOCNpFTLHXjAmL5xss1QrToNqXGCTGSrqKG6Nz1 VudCAxDQo+Sb9YWH4rf0VaHLalCWRtPR0nqn7DXWeCAkSaW7GcuVnaPSGqh2igNRGkOL4zxGUcGOD4BJ Bbdi48cNiyQgMAVB0mYM6JTBF2OQOuWf2cPANgZIBpVwCwOEHKJP1JCRAoDNGyrNGsZJObKBLUCA0NCR frWXI5ENNscrWarJUvXDqkPM2FFPSkliXkXIngPYPR DQo+Zx8WQE0hp5ExFAdrKGIxMH2ffq8FDSeJPdXaV9Q5hRIcS8P3XSjfVb0BEXYwIBIxWUyiOCDTAEyb JZ9GXC2xscY8SC9AnYUrGXPhBEZihHKtVPm3F72uxWSnHYhzUW4BGZM+David+Tn7KYVJpXULqCNGaYgXq TQDNDkZaE1UiS4FSl4XoM5TnPZ09dPlzbnTlHIexEZ 4ESV3xINZmAIQMIX4XmBAtsN1osrXjKRXsTOUYSjLoR23ydSJwIYFcMSB1DOGiOo6OCPRtN7TiknHupB tiajYmVUEoZSGBTG3XPPabydBwtCZefIsuBD18iWeqUF0RJp2GAtKlAG4jxp9HqVCdRw4HFYHrBu1VJX AiRPLvDBOdHQX5IWKyBpOoJOgtMWAcDCXdNCM4BQEh RYUdNW2IIhUgUMIxWOz7EaFyLJHrLJKwkd7CKIRzNYVoCOW2CsBsHYCoDCOcNMkaBSJxMMMkXYY9OILb BIMeRH5XWzOpJSFaAEX9FGRrKLJoQOKwbh9XIYBkPOWlSidfNGMsSRBuIZMmJRmaWNAvHOHbEdH0QYFm BJLxQN3KUsIrRCMrQQV8MjKjQIKgCKEubj9JMIDsRG QhVMV9TOQyMWDjBEEwVZtgTOZbVJY0NXv0IAKyQJXmJG1VJsTzAKSdKLFsZETpMZBsXFBdhn2LHTWjIA ChZFS1RrHdSSBgOBLvMKoiIJAkLUE6YcQxTKAeNJRfKI6EJkKwMCVkCEmbHQjvOIAtOHVura6LDRFoLO UsUfW5HqPiNNRbLJVzOEkmDUHkNLX1HAX4BKSjRJLb ST7KHlMvVMApVXv4UGExEMAyJPDskd5KAZJeVTIyZNY9TgXiDVHnDIDeXRzwKSBkFKR2XNsmTDAsNIEd IN8LHcXyBYEjAYy4QeTqQCAfFZVfoy0QFKNeRNLxEZciUONwIIQmQQGrLVo7gpFbrSCfEOb3SW5LG3Hc yxFoNbIZSd0Vr223IVIdGPTpEn3WT5drDr7oMUCkKO YWJt8WVIp9DjBxJ2ZgAIMcCDI3DSXdLkGtGLNnGIJvTuYiH5X8DOt+VCxzZXZgCaN3NzFeQjZ8ZzJoKf BjI9D3N9T3PnHtObG3DU4xRKDKGd2+DBqclFWneWfsPWZPYdJ5HPLnXOffZLQCGl5P ID Date Data Source [id number] 11/11/2019 02:12:58 PM EDT [facility] Name Value Range Interpretation Code Description Data Gay rce(s) Supporting Document(s) Progress Note [facility] QVHSCl3nItQXHnYx11/MERxtFACoh0OqYCdfVBj8ZTauVXUfH2FlTOU7kI0uENI0TKqXIyWjSeDqRvJt lbm [file] o= ID Date Data Source [id number] 11/11/2019 02:12:53 PM EDT [facility] Name Value Range Interpretation Code Description Data Gay rce(s) Supporting Document(s) Progress Note [facility] TNVOBz9dTgRHGwRd14/VFYrqPTRbv8AnRHyfWRm7SJqpCZQiJ0GjCLH3uE5tDRZ7PHnFUtBcWlLaClZi lbm [file] C7mMOtAz2RMoY8ZDJIEjDaVO2BWJt= ID Date Data Source [id number] 11/12/2019 10:12:44 AM [facility] Value Range Interpretation Code Description Data Gay rce(s) Supporting Document(s) Thyroperoxidase Ab [Units/volume] in Serum or Plasma 1.1 IU/mL <9.0 [facility] ID Date Data Source [id number] 11/16/2019 11:26:08 AM [facility] Value Range Interpretation Code Description Data Gay rce(s) Supporting Document(s) Cardiolipin IgG Ab [Interpretation] in Serum <20.0 [facility] Negative results do not rule out Antipho spholipid syndrome. Additional APL testing should be considered. ID Date Data Source [id number] 11/16/2019 11:26:08 AM [facility] Value Range Interpretation Code Description Data Gay rce(s) Supporting Document(s) Cardiolipin IgM Ab [Interpretation] in Serum 1.6 U/mL <20.[address] [place] [address] Negative results do not rule out Antipho spholipid syndrome. Additional APL testing should be considered. ID Date Data Source [id number] 11/16/2019 11:26:08 AM [facility] Value Range Interpretation Code Description Data Gay rce(s) Supporting Document(s) Beta 2 glycoprotein 1 IgM Ab [Units/volume] in Serum <20.0 [facility] Negative results do not rule out Antipho spholipid syndrome. Other APL testing should be considered. Beta 2 glycoprotein 1 IgG Ab [Units/volume] in Serum <20.0 [facility] Negative results do not rule out Antipho spholipid syndrome. Other APL testing should be considered. ID Date Data Source [id number] 11/11/2019 01:02:35 PM [facility] Value Range Interpretation Code Description Data Gay rce(s) Supporting Document(s) Leukocytes [#/volume] in Blood by Automated count 2.5 10*3/uL 4-10 L [facility] Erythrocytes [#/volume] in Blood by Automated count 3.37 10*6/uL 4.1- 5.3 L [facility] Hemoglobin [Mass/volume] in Blood 11.0 g/dL 11.5-15.5 L [facility] Hematocrit [Volume Fraction] of Blood by Automated count 32.0 % 3 6-45 L [facility] Erythrocyte mean corpuscular volume [Entitic volume] by Auto mated count 94.9 fL 80-96 [facility] Erythrocyte mean corpuscular hemoglobin [Entitic mass] by Automated count 32.7 pg 27-33 [facility] Erythrocyte mean corpuscular hemoglobin concentration [Mass/volume] by Automated count 34.5 g/dL 32.0-36.0 [facility] width [Ratio] by Automated count 13.6 % 11.5-14.5 [facility] Platelets [#/volume] in Blood by Automated count 271 10*3/uL 150-400 [facility] Neutrophils/100 leukocytes in Blood by Automated count 38 % [facility] Lymphocytes/100 leukocytes in Blood by Automated count 52 % [facility] Monocytes/100 leukocytes in Blood by Automated count 9 % [facility] Basophils/100 leukocytes in Blood by Automated count 1 % [facility] Neutrophils [#/volume] in Blood by Automated count 0.95 10*3/uL 1.8-7 .0 [facility] Lymphocytes [#/volume] in Blood by Automated count 1.29 10*3/uL 1.2-4 .0 [facility] Monocytes [#/volume] in Blood by Automated count 0.23 10*3/uL 0-0.8 [facility] Basophils [#/volume] in Blood by Automated count 0.03 10*3/uL 0-0.2 [facility] Platelet adequacy [Presence] in Blood by Light microscopy Normal [facility] Differential cell count method - Blood [facility] ID Date Data Source [id number] 11/11/2019 01:16:40 PM [facility] Name Value Range Interpretation Code Description Data Gay rce(s) Supporting Document(s) Erythrocyte sedimentation rate 8 mm/hr <20 [facility] ID Date Data Source [id number] 11/11/2019 02:04:38 PM [facility] Name Value Range Interpretation Code Description Data Gay rce(s) Supporting Document(s) C reactive protein [Mass/volume] in Serum or Plasma <8.0 [facility] ID Date Data Source [id number] 11/11/2019 02:04:38 PM EDT [facility] Name Value Range Interpretation Code Description Data Gay rce(s) Supporting Document(s) Albumin [Mass/volume] in Serum or Plasma by Bromocresol green (BCG) dye binding method 4.5 g/dL 3.5-5.2 [facility] Bilirubin.total [Mass/volume] in Serum or Plasma 0.8 mg/dL <1.2 [facility] Calcium [Mass/volume] in Serum or Plasma 9.1 mg/dL 8.6-10.0 [facility] Chloride [Moles/volume] in Serum or Plasma 105 mmol/L 98-107 [facility] Creatinine [Mass/volume] in Serum or Plasma 0.77 mg/dL 0.50-0.90 [facility] Glucose [Mass/volume] in Serum or Plasma 77 mg/dL 70-140 [facility] Alkaline phosphatase [Enzymatic activity/volume] in Serum or Plasma 70 U/L 35-104 [facility] Potassium [Moles/volume] in Serum or Plasma 3.6 mmol/L 3.4-5.1 [facility] Protein [Mass/volume] in Serum or Plasma 7.6 g/dL 6.4-8.3 [facility] Sodium [Moles/volume] in Serum or Plasma 136 mmol/L 136-145 [facility] Aspartate aminotransferase [Enzymatic activity/volume] in Serum or Plasma 16 U/L <32 [facility] Urea nitrogen [Mass/volume] in Serum or Plasma 8 mg/dL 6-20 [facility] Osmolality of Serum or Plasma by calculation 280 mosm/kg 275-300 [facility] Creatinine/Urea nitrogen [Mass Ratio] in Serum or Plasma 10 [facility] Bicarbonate [Moles/volume] in Serum 21 mmol/L 22-29 L [facility] Alanine aminotransferase [Enzymatic activity/volume] in Seru m or Plasma 6 U/L <33 [facility] Anion gap 3 in Serum or Plasma 11 mmol/L 8-15 [facility] Albumin/Globulin [Mass Ratio] in Serum or Plasma 1.5 [facility] Glomerular filtration rate/1.73 sq M pre dicted among non-blacks [Volume Rate/Area] in Serum or Plasma by Creatinine-based formula (MDRD) >6 0 [facility] Glomerular filtration rate/1.73 sq M pre dicted among blacks [Volume Rate/Area] in Serum or Plasma by Creatinine-based formula (MDRD) >60 [facility] ID Date Data Source [id number] 11/11/2019 02:04:38 PM [facility] Value Range Interpretation Code Description Data Gay rce(s) Supporting Document(s) Thyrotropin [Units/volume] in Serum or Plasma 0.724 u[IU]/mL 0.270-4. 200 [facility] ID Date Data Source [id number] 11/11/2019 04:16:18 PM [facility] Value Range Interpretation Code Description Data Gay rce(s) Supporting Document(s) Complement C3 [Mass/volume] in Serum or Plasma 103 mg/dL 90-180 [facility] ID Date Data Source [id number] 11/11/2019 04:16:18 PM [facility] Value Range Interpretation Code Description Data Gay rce(s) Supporting Document(s) Complement C4 [Mass/volume] in Serum or Plasma 21 mg/dL 10-40 [facility] ID Date Data Source [id number] 11/12/2019 12:34:16 PM [facility] Value Range Interpretation Code Description Data Gay rce(s) Supporting Document(s) Lupus anticoagulant neutralization plate let [Time] in Platelet poor plasma by Coagulation assay 6.4 sec <8.0 [facility] ID Date Data Source [id number] 11/12/2019 12:34:16 PM [facility] Value Range Interpretation Code Description Data Gay rce(s) Supporting Document(s) dRVVT/dRVVT W excess phospholipid (screen to confirm ratio) 0.91 Ra carl <1.20 [facility] ID Date Data Source [id number] 11/12/2019 12:34:16 PM [facility] Value Range Interpretation Code Description Data Gay rce(s) Supporting Document(s) Lupus anticoagulant neutralization plate let [Time] in Platelet poor plasma by Coagulation assay 0.0 sec <1.0 [facility] ID Date Data Source [id number] 11/12/2019 01:03:40 PM [facility] Value Range Interpretation Code Description Data Gay rce(s) Supporting Document(s) Nuclear Ab Pattern Homogenous [Titer] in Serum <80 [facility] Nuclear Ab pattern.speckled [Titer] in Serum <80 [facility] Nuclear Ab pattern.rim [Titer] in Serum <80 [facility] Nuclear Ab pattern.nucleolar [Titer] in Serum <80 [facility] ID Date Data Source [id number] 11/12/2019 01:14:36 PM [facility] Name Value Range Interpretation Code Description Data Gay rce(s) Supporting Document(s) Lymphocytes [#/volume] in Blood by Flow cytometry (FC) 1269 cell s/uL 1739-6479 [facility] CD19 cells/100 cells in Blood 6 % 6-23 [facility] CD19 cells [#/volume] in Blood 74 {cells}/uL 91-610 [facility] CD3 cells/100 cells in Blood 72 % 62-87 [facility] CD3 cells [#/volume] in Blood 916 {cells}/uL 570-2400 [facility] CD3+CD4+ (T4 helper) cells/100 cells in Blood 37 % 32-64 [facility] CD3+CD4+ (T4 helper) cells [#/volume] in Blood 475 {cells}/uL 430-180 0 [facility] CD3+CD8+ (T8 suppressor cells) cells/100 cells in Blood 30 % 15 -46 [facility] CD3+CD8+ (T8 suppressor cells) cells [#/volume] in Blood 380 {cells}/uL 210-1200 [facility] CD16+CD56+ cells/100 cells in Blood 21 % 4-26 [facility] CD16+CD56+ cells [#/volume] in Blood 263 {cells}/uL 78-470 [facility] CD3+CD4+ (T4 helper) cells/CD3+CD8+ (T8 suppressor cells) cells [# Ratio] in Blood 1.3 0.8-3.9 [facility] Service comment 02 [facility] Reference range established on 11/18/14.R eference ranges for adults and children 5 years - 54 years old per [place].Reference ranges for adults >55 years of age per [facility].Pediatric reference ranges for children less than 5 years of age [facility] ID Date Data Source [id number] 11/12/2019 04:07:25 PM [facility] Name Value Range Interpretation Code Description Data Gay rce(s) Supporting Document(s) Cardiolipin IgA Ab [Units/volume] in Serum by Immunoassay 0-11 [facility] (NOTE) Negative: <12 Indeterminate: 12 - 20 Low-Med Positive: >20 - 80 High Positive: >80[facility] [id number] Green MD Ph:[phone] ID Date Data Source [id number] 11/12/2019 05:06:04 PM EDT [facility] Value Range Interpretation Code Description Data Gay rce(s) Supporting Document(s) Creatine kinase [Enzymatic activity/volume] in Serum or Plasma 138 U/L 32-182 [facility] (NOTE) Please note referen ce interval change Creatine Kinase.macromolecular type 2/Creatine kinase. total in Serum or Plasma 0 % Not Observed [facility] Creatine kinase.MM/Creatine kinase.total in Serum or P lasma by Electrophoresis 100 % 97-100 [facility] Creatine Kinase.macromolecular type 1/Creatine kinase. total in Serum or Plasma 0 % Not Observed [facility] Creatine kinase.MB/Creatine kinase.total in Serum or P lasma by Electrophoresis 0 % 0-3 [facility] Creatine kinase.BB/Creatine kinase.total in Serum or P lasma by Electrophoresis 0 % 0 [facility] (NOTE)Performed At: [facility] [id number] Green MD Ph:[phone] ID Date Data Source [id number] 11/13/2019 07:06:19 AM EDT [facility] Value Range Interpretation Code Description Data Gay rce(s) Supporting Document(s) Beta 2 glycoprotein 1 IgA Ab [Units/volume] in Serum 0-25 [facility] (NOTE)The reference interval reflects a 3SD or 99th percentile interval,which is thought to represent a potentially clinically significantresult in accordance with the International Consensus Statement onthe classification criteria for definitive antiphospholipidsyndrome (APS). J Thromb Haem 2006;4:295- 306.Performed At: [facility] [id number] Hernandez MD Ph:[phone] ID Date Data Source [id number] 11/11/2019 01:15:46 PM [facility] Name Value Range Interpretation Code Description Data Gay rce(s) Supporting Document(s) Color of Urine [facility] Clarity of Urine [facility] Specific gravity of Urine by Refractometry automated 1.024 1.003 -1.030 [facility] pH of Urine by Automated test strip 5.0 5.0-8.0 [facility] Protein [Mass/volume] in Urine by Automated test strip Neg [facility] Glucose [Mass/volume] in Urine by Automated test strip Neg [facility] Ketones [Mass/volume] in Urine by Automated test strip Neg [facility] Bilirubin.total [Presence] in Urine by Automated test strip Negative [facility] Hemoglobin [Presence] in Urine by Automated test strip Neg [facility] Leukocyte esterase [Presence] in Urine by Automated test strip Negative [facility] Nitrite [Presence] in Urine by Automated test strip Negati [facility] Leukocytes [#/area] in Urine sediment by Automated count 16 /HPF 0 -5 H [facility] Erythrocytes [#/area] in Urine sediment by Automated count 4 /HPF 0-3 H [facility] Epithelial cells.squamous [#/area] in Urine sediment by Auto mated count 21 /HPF None [facility] Mucus [#/area] in Urine sediment by Microscopy low power field None [facility] Crystals.amorphous [#/area] in Urine sediment by Microscopy high power field None [facility] ID Date Data Source [id number] 11/11/2019 01:43:18 PM [facility] Value Range Interpretation Code Description Data Gay rce(s) Supporting Document(s) Protein [Mass/volume] in Urine 15 mg/dl [facility] Creatinine [Mass/volume] in Urine 249.5 mg/dL [facility] Protein/Creatinine [Mass Ratio] in Urine 0.06 mg/mg{creat} [facility] ID Date Data Source [id number] 11/03/2019 12:42:09 PM [facility] Value Range Interpretation Code Description Data Gay rce(s) Supporting Document(s) Leukocytes [#/volume] in Blood by Automated count 2.4 10*3/uL 4-10 L [facility] Erythrocytes [#/volume] in Blood by Automated count 3.52 10*6/uL 4.1- 5.3 L [facility] Hemoglobin [Mass/volume] in Blood 11.4 g/dL 11.5-15.5 L [facility] Hematocrit [Volume Fraction] of Blood by Automated count 33.9 % 3 6-45 L [facility] Erythrocyte mean corpuscular volume [Entitic volume] by Auto mated count 96.3 fL 80-96 H [facility] Erythrocyte mean corpuscular hemoglobin [Entitic mass] by Automated count 32.4 pg 27-33 [facility] Erythrocyte mean corpuscular hemoglobin concentration [Mass/volume] by Automated count 33.7 g/dL 32.0-36.0 [facility] E[facility]th[facility] distribution width [Ratio] by Automated count 12.9 % 11.5-14.5 [facility] Platelets [#/volume] in Blood by Automated count 260 10*3/uL 150-400 [facility] Differential cell count method - Blood [facility] Neutrophils/100 leukocytes in Blood by Automated count 50 % [facility] Lymphocytes/100 leukocytes in Blood by Automated count 40 % [facility] Monocytes/100 leukocytes in Blood by Automated count 10 % [facility] Eosinophils/100 leukocytes in Blood by Automated count 0 % [facility] Basophils/100 leukocytes in Blood by Automated count 0 % [facility] Neutrophils [#/volume] in Blood by Automated count 1.18 10*3/uL 1.8-7 .0 L [facility] Lymphocytes [#/volume] in Blood by Automated count 0.95 10*3/uL 1.2-4 .0 [facility] Monocytes [#/volume] in Blood by Automated count 0.24 10*3/uL 0-0.8 [facility] Eosinophils [#/volume] in Blood by Automated count 0.00 10*3/uL 0-0.5 [facility] Basophils [#/volume] in Blood by Automated count 0.00 10*3/uL 0-0.2 [facility] Nucleated erythrocytes/100 leukocytes [Ratio] in Blood by Automated count 0 /100{WBCs} 0-0 [facility] ID Date Data Source [id number] 11/03/2019 01:47:41 PM EDT [facility] Name Value Range Interpretation Code Description Data Gay rce(s) Supporting Document(s) Albumin [Mass/volume] in Serum or Plasma by Bromocresol green (BCG) dye binding method 4.4 g/dL 3.5-5.2 [facility] Bilirubin.total [Mass/volume] in Serum or Plasma 0.7 mg/dL <1.2 [facility] Calcium [Mass/volume] in Serum or Plasma 9.4 mg/dL 8.6-10.0 [facility] Chloride [Moles/volume] in Serum or Plasma 102 mmol/L 98-107 [facility] Creatinine [Mass/volume] in Serum or Plasma 0.72 mg/dL 0.50-0.90 [facility] Glucose [Mass/volume] in Serum or Plasma 86 mg/dL 70-140 [facility] Alkaline phosphatase [Enzymatic activity/volume] in Serum or Plasma 68 U/L 35-104 [facility] Potassium [Moles/volume] in Serum or Plasma 3.8 mmol/L 3.4-5.1 [facility] Protein [Mass/volume] in Serum or Plasma 7.1 g/dL 6.4-8.3 [facility] Sodium [Moles/volume] in Serum or Plasma 138 mmol/L 136-145 [facility] Aspartate aminotransferase [Enzymatic activity/volume] in Serum or Plasma 12 U/L <32 [facility] Urea nitrogen [Mass/volume] in Serum or Plasma 6 mg/dL 6-20 [facility] Osmolality of Serum or Plasma by calculation 282 mosm/kg 275-300 [facility] Creatinine/Urea nitrogen [Mass Ratio] in Serum or Plasma 9 [facility] Bicarbonate [Moles/volume] in Serum 26 mmol/L 22-29 [facility] Alanine aminotransferase [Enzymatic activity/volume] in Seru m or Plasma 7 U/L <33 [facility] Anion gap 3 in Serum or Plasma 10 mmol/L 8-15 [facility] Albumin/Globulin [Mass Ratio] in Serum or Plasma 1.6 [facility] Glomerular filtration rate/1.73 sq M pre dicted among non-blacks [Volume Rate/Area] in Serum or Plasma by Creatinine-based formula (MDRD) >6 0 [facility] Glomerular filtration rate/1.73 sq M pre dicted among blacks [Volume Rate/Area] in Serum or Plasma by Creatinine-based formula (MDRD) >60 [facility] ID Date Data Source [id number] 11/03/2019 02:02:21 PM [facility] Value Range Interpretation Code Description Data Gay rce(s) Supporting Document(s) Cobalamin (Vitamin B12) [Mass/volume] in Serum or Plasma 598 pg/ml 2 11-946 [facility] ID Date Data Source [id number] 11/03/2019 02:46:48 PM [facility] Value Range Interpretation Code Description Data Gay rce(s) Supporting Document(s) Ceruloplasmin [Mass/volume] in Serum or Plasma 22 mg/dl 16-45 [facility] ID Date Data Source [id number] 11/03/2019 02:46:48 PM [facility] Value Range Interpretation Code Description Data Gay rce(s) Supporting Document(s) IgG [Mass/volume] in Serum or Plasma 1177 mg/dL 700-1600 [facility] IgA [Mass/volume] in Serum or Plasma 195 mg/dL 70-400 [facility] IgM [Mass/volume] in Serum or Plasma 129 mg/dL 30-230 [facility] ID Date Data Source [id number] 11/03/2019 02:04:01 PM [facility] Value Range Interpretation Code Description Data Gay rce(s) Supporting Document(s) Hepatitis A virus IgM Ab [Presence] in Serum or Plasma by Im munoassay Non Reactive [facility] Hepatitis B virus core IgM Ab [Presence] in Serum or Plasma by Immunoassay [facility] Reactive [facility] IgM antibodies to HBc were not detected, does not exclude the possibility of exposure to HBV. Hepatitis C virus Ab [Presence] in Serum or Plasma by Immuno assay Non Reactive [facility] No serological evidence of active infect ion. If recent exposure is suspected, test for HCV RNA. Hepatitis B virus surface Ag [Presence] in Serum or Plasma b y Immunoassay Non Reactive [facility] No active or previous infection. Suscept ible to infection. ID Date Data Source [id number] 11/03/2019 02:04:01 PM [facility] Value Range Interpretation Code Description Data Gay rce(s) Supporting Document(s) Folate [Mass/volume] in Serum or Plasma 17.60 ng/mL >4.77 [facility] ID Date Data Source [id number] 11/03/2019 01:50:17 PM EDT [facility] Name Value Range Interpretation Code Description Data Gay rce(s) Supporting Document(s) HIV 1+2 Ab+HIV1 p24 Ag [Presence] in Serum or Plasma by Immu noassay Non Reactive [facility] Negative for HIV-1 p24 antigenand HIV-1/ HIV-2 antibodies. Nolaboratory evidence of HIVinfection. ID Date Data Source [id number] 11/03/2019 11:48:29 AM EDT [facility] Name Value Range Interpretation Code Description Data Gay rce(s) Supporting Document(s) Progress Note [facility] [id number]/RUEzdZIPts9CiSDgsBEt0QMgyMSIxV0IjMYH9xZ3qNSK4FMhVHqNpIyZdGqDv m [file] UhOiNhGbXCM8NbvnBOW3EF3jIYCZWu1+NLbipCSqfAzqIIFGIqI4VLA0ETfaGGLIFy2G ID Date Data Source [id number] 11/01/2019 02:38:50 PM EDT [facility] Name Value Range Interpretation Code Description Data Gay rce(s) Supporting Document(s) Progress Note [facility] GAYMLa5zCaYPNkZt82/OSHoqDUHcb7OfKRwmUJf7WEgcXJEqL4SgGKT2oO9iOIU4YHdYOjXzIqYvDyZn lbm BjOkzDIsYrZOCxYvoGLbNlWUymXpxqaIXkVO1ZgBU4GGJfO98cOIXkYBSuJ2KqHPZ9IJX+Nb8XLBZfvP AkFV9ELcmR1Kqos+O49XuB/vvHOmnkIYQg8PPXTAFMVadeEFimpagtWJ4b0Otrdc7cIHwm/vfVQdp+Garland YRRaR6L+zMh4Qg+a3Op4FWtc07UwNXh0RZsy+rX8OI k9GU/CEWVB2J4MSz5z/SKaVBB6sVAmQ4g9GIF0bFxoRPJgxaAZmdWx9ZUZdtzEXOWwttzKjc0gskfUvk bjyheyLhu3ipl8nN9S5RCgg//ECG/yEfh+VPf6vCCu7a9q7IMvNhKFmpvUlFVjQR39MqPRZoCsWr66hT h8wJ4o2FsL6tP82AAQME7xEM+b93uhuk37fxc6H4Zh Km4R4MVRjcGsYpxPDb1BPFUmC3eS6nQIIRLJfl9CBuUi4gc6v5zzCo1Ll0LNo1alPla/uAPeAYMkQV3N dOO7qoVVBfaiACCfex4m5/QpacrfgbJP+8f0YMmbc9HltlrJTVNgKJX2IgS7Jp3rYzPnk2DvXsnLAEPz kNc5GXGaWm9uQ53KIRQ51UmQI01JKXfMSK21ELT4Sn CXoG2tHVlcw7eIG+whFjHAEdWIoARWlnMMdQhQiEb0A7eup0Kdomb7rbE99FYKIL1sinNR45Rm6N9hA7 KCRns3AdABOAzRZIQ1nM9AEYrdcojrXKG4YWxvSgdAbo2y15uQynG2Tmv1p2j3qw5Ek1BEVlDffdy+pavon bnPN72gJixKQU+1hqSSjwDx0TQTqNCgZCHsW5cfQbh I266YMNJsH17Lla0J2dkUNXYKQIINOMHNjRdF/375XgbdvUsQg2JxjQmDYq6zzwJ/9hfBqFMEBO+CUU0 LYoaDk+mIX6V/wa44b49MayobsEORmh+X6RMTHDL1/9Vzy7xelmTMLwDrFJ2/bRdyDevI5pFOBaH0cRH tQ3P2hgX+1+bCe/QXZ0hrIvpxVcQtfigwfNzOKcZiC dVtTQmmFCfNbuG8S8HcTStxfsh2hpTOcd0WXfCDkyXCTHTINLN50oA383SIBDIPzBJjL6fiXvG2J7ZGO TPsRyG2sRM9xCMP7cMyMmEhBrR8wUyeuYT8jxYcJlUIoUHsJlUSO8DqjN1DfSH34unujOC+tgs7JLSg7 umoB7mbRJffjpUejDhgME3uuwVXhxPdnDUSyciS9ML IPZjFZE2LTaqlMQYF+5um1A6YCBk4SEUoMp1v+RAr2xeSEpaV5Fkr5KE3nRydyRrYReOTjefsx+fcQMc J+9kFlTZf8dnu//ZXSO/55z9IbJ4xTsMjGotTI5cUdrOw4pLpVFSnmGG1RinlWFvfTOC4ziEhdmT7m8l ONNfdfLw8bZdr7MA+cQCP/YMpst1nD3EW8frvpckuA +8+4pUgvF2Td42KBk4UhLsRj3nzGqtJivok7HbzC8gAR4aldrXnp0W5ceZibheguGoP5CzeirlhrYH8r 5+adfHj5gja59qNl1n3E/ALnAW9AOI1cT5fSKGpKdr+WJG9p2znhKm7uogaouHGNjHwfTpyVw4sU+unruly [file] JgJ9UTZ8bFBxDd8LQhc4ZHKLCoLpRH9VRLc= ID Date Data Source [id number] 10/26/2019 07:08:07 PM EDT [facility] Name Value Range Interpretation Code Description Data Gay rce(s) Supporting Document(s) Progress Note [facility] NUNIKm6aYwFYMaEz96/GERpxQNGxa2NnVJvvIKs6BQgxWZHgS5CdSAO9bP9gAQD0AWlNPrWvOxBeNND5 lbm [file] ICAgICAgICAgICAgICAgICAgICAgICAgICAgICAgICAgICAgICAgICAgICAgICAgICAgICAgICAgICAg ICAgICAgICAgICAgICAgICAgICAgICAgICAgICAgICAgICAgDQogICAgICAgICAgICAgICAgICAgICAg ICAgICAgICAgICAgICAgICAgICAgICAgICAgICAgIC AgICAgICAgICAgICAgICAgICAgICAgICAgICAgICAgICAgICAgICAgICAgICAgDQogICAgICAgICAgIC AgICAgICAgICAgICAgICAgICAgICAgICAgICAgICAgICAgICAgICAgICAgICAgICAgICAgICAgICAgIC AgICAgICAgICAgICAgICAgICAgICAgICAgICAgDQog ICAgICAgICAgICAgICAgICAgICAgICAgICAgICAgICAgICAgICAgICAgICAgICAgICAgICAgICAgICAg ICAgICAgICAgICAgICAgICAgICAgICAgICAgICAgICAgICAgICAgDQogICAgICAgICAgICAgICAgICAg ICAgICAgICAgICAgICAgICAgICAgICAgICAgICAgIC AgICAgICAgICAgICAgICAgICAgICAgICAgICAgICAgICAgICAgICAgICAgICAgICAgDQogICAgICAgIC AgICAgICAgICAgICAgICAgICAgICAgICAgICAgICAgICAgICAgICAgICAgICAgICAgICAgICAgICAgIC AgICAgICAgICAgICAgICAgICAgICAgICAgICAgICAg DQogICAgICAgICAgICAgICAgICAgICAgICAgICAgICAgICAgICAgICAgICAgICAgICAgICAgICAgICAg ICAgICAgICAgICAgICAgICAgICAgICAgICAgICAgICAgICAgICAgICAgDQogICAgICAgICAgICAgICAg ICAgICAgICAgICAgICAgICAgICAgICAgICAgICAgIC AgICAgICAgICAgICAgICAgICAgICAgICAgICAgICAgICAgICAgICAgICAgICAgICAgICAgDQogICAgIC AgICAgICAgICAgICAgICAgICAgICAgICAgICAgICAgICAgICAgICAgICAgICAgICAgICAgICAgICAgIC AgICAgICAgICAgICAgICAgICAgICAgICAgICAgICAg ICAgDQogICAgICAgICAgICAgICAgICAgICAgICAgICAgICAgICAgICAgICAgICAgICAgICAgICAgICAg HKSzQIVyGCPwMTZgGIMbFMKtVSYsYWFgEWTeXQLfHREdRJXjVQYdDFQsKSEiEHf1A2lpONQfXFWxAH4f FDd7Mh0+KBqLDqFwAWA1isKtdM7OHW6ub3YeITnxCX Hvw6QgSXm3MV6QWCWuEYekKX9QLOniph9ORYHtPCHfcPZCc9tiDiJiBSA0APUlLmabOF4HCASyX0jqop MsNTVhRWNDANczYCOVEYqeDHSDXGHtLJYyRbNqVmUsABUbOKZtDGKEPQ4DXlNkV2RslL82SNXQXs5+DQ ylilPnDdnGKkJ4XOCah5IbNSv5HV0OCXUrCvdjt1Yc HmFvWCTHNEcmIZ8WPKL9HVLkZIDmHa2EESTmK375xyQbFT8TBc9LDuUgCA3nfy3UYaOfVBKpCubPBfy7 VCkzST7WdCFyXNsKcv1mxwNbawPSs4DbcxXqhPTUp4W6dIPoWSgnhovsSPVhhHyoNETnORGmTV4rCQ8a EJQpZRGfNqQgRLGFNF3EVVMcIGVnvAXoIXQtKQMKNF 7RDOahTYE9KFHwdzTneQUzTAmqZM0EKCOxxcDnXpwoSINSAKn+Rk5AAX0ho6SpJCeaFMLzZV2dmi1GXQ iAMgCaZ2P2jZClE6E7SQdeFf4LLSUhLUZwMdzlOBNWPDgnZC9ZGU6iynT8HF4DfZWkLPYbOKOieBEkJH t4G13ttNTnDGuiCT7OMTQ+David+Jd4GSLKvVOAqEJHl OmGvWBWRCmXmZ6IjF5ZRw1VeK8PwUE60lLrzttPpPExwOH8KDU5uTFUmULSKXS0VhILmpV4xfyYvVXIa PWPWDfFbI54ysKGiIFJgKBN9RVVxZd6BUDBuY8HkhhVapWnqewJpOPEaGXQZSS5LGUbrydHaxKOgfSfy MK07cEuvNR8TYu5UQeDmYX0pgn3OoAGcNc1OPLEePm 4CJCGsVOEuRNRiCYR2MTHfBgLwRQsrTVNiKILiBVI3QIZwIBUeUY2GHhZtSNUwOaPaYlFqDNDtAUJxia 3HNOHyGTNdFdf8KoCiUTGvNHNwMDenCWOnUTUwIIO4KAFqAMPfDW4RHrGuEUKpXFFrJyKfBJOcCGRhmf 9ACBToQVEjCqJqUPPhHKWeYFAeIAxoVEDbBSO6PHT0 OONlTNXtDX9HSfOjLKTcCVT0JnApAPQyBKEveo1GUILcZZAcGNL1WoRdNVNeLFZpCZuoJZNvTBG1GRC1 WFDzUMUuJN8RHwIdGDRrAJWqQiRgWUSgOXXpuf8OYUTtJGJaEuQtRBQyFFAgFBThMNnzMBYvUDO9KmEj PXAyTIYoIU8LBkZnPRMjHZG6YxegJOFuYZYohl0BTH GyYGSwDve5JvXtYFDxSHWsRLazQGDiEZR2VKvjDXYdNTArCY3QTsWpOOQfDGh7SWCrOIGyHKFtuj3PZJ VkKOOaCCP9GATpTVLvFHTcEVdgDSCcNDE2FxYuFPByKKAlWI7PDpHdJLCzIBafZMOrXBZmVCIeza5XIJ RzUCRsASY4GoNtBOCsJKDxQNxqRZAeZOS8ButgBBAb YOCgOC8VPjItRFJjWaAwYKCvOSHvEUEiwi6QNPZtHCGfKWMkYpMiPYSqLFRmYMwkZAIqQWFkBrX3IODe BCIjIM1BWpJrNRHtQyS3EMPgDUCoVLAyad4GEXGyMQEmYuO5HFFsKAYeCXMlTTybQOSpBEIpHVOfRCQx MLXqJD9DPdPoXPZxFcS1TVVyRPMnEWGjat5FKAKdVR XgVvx7WANvPBAcPKHiBXbeMDJiDLL2ACS2WQVaEPMnXT4IZcBxZLpbFKHRAuf3PNhlJ7n5FPKpCi0GY4 Idw6RpSjIiBTYVNQbmRP9areFwVVBdNa8SP8gDWgy9Odo8KZffCDI4JBRyZVSbEYZ1KfIuOTIaDSFoBJ R8RP9tZAR1IDF0CJWbKeMeXqA2WIJqLCZhUJVeUkGu KHBuVCLrTwFuWA5VHz5RCcN5EMK5vZMpCt0FPsJlWXRGKuXeNE2KEWj= ID Date Data Source [id number] 10/18/2019 06:53:56 PM T [facility] NegativeNo interferon-gamma response to M.tuberculosisantigens was detected. Infection withM. tuberculosis is unlikely. A single negativeresult does not exclude infection with M. TB.In patients at high risk for M. tuberculosisinfection, a 2nd test should be consideredin accordance with [id number] ATS/IDSA/CDC Clinical Practice Guidelinesfor Diagnosis of Tuberculosis in Adults andChildren [Karla REDMAN et. al. Clin Infec.[id number] 64(2):111-115] Name Value Range Interpretation Code Description Data Gay rce(s) Supporting Document(s) Leukocytes [#/volume] in Blood by Automated count 3.0 10*3/uL 4-10 L [facility] Erythrocytes [#/volume] in Blood by Automated count 3.64 10*6/uL 4.1- 5.3 L [facility] Hemoglobin [Mass/volume] in Blood 12.1 g/dL 11.5-15.5 [facility] Hematocrit [Volume Fraction] of Blood by Automated count 35.8 % 3 6-45 L [facility] Erythrocyte mean corpuscular volume [Entitic volume] by Auto mated count 98.3 fL 80-96 H [facility] Erythrocyte mean corpuscular hemoglobin [Entitic mass] by Automated count 33.1 pg 27-33 H [facility] Erythrocyte mean corpuscular hemoglobin concentration [Mass/volume] by Automated count 33.7 g/[facility] width [Ratio] by Automated count 13.3 % 11.5-14.5 [facility] Platelets [#/volume] in Blood by Automated count 328 10*3/uL 150-400 [facility] Differential cell count method - Blood [facility] Neutrophils/100 leukocytes in Blood by Automated count 55 % [facility] Lymphocytes/100 leukocytes in Blood by Automated count 36 % [facility] Monocytes/100 leukocytes in Blood by Automated count 8 % [facility] Eosinophils/100 leukocytes in Blood by Automated count 0 % [facility] Basophils/100 leukocytes in Blood by Automated count 1 % [facility] Neutrophils [#/volume] in Blood by Automated count 1.63 10*3/uL 1.8-7 .0 L [facility] Lymphocytes [#/volume] in Blood by Automated count 1.08 10*3/uL 1.2-4 .0 L [facility] Monocytes [#/volume] in Blood by Automated count 0.25 10*3/uL 0-0.8 [facility] Eosinophils [#/volume] in Blood by Automated count 0.01 10*3/uL 0-0.5 [facility] Basophils [#/volume] in Blood by Automated count 0.03 10*3/uL 0-0.2 [facility] Nucleated erythrocytes/100 leukocytes [Ratio] in Blood by Automated count 0 /100{WBCs} 0-0 [facility] ID Date Data Source [id number] 10/18/2019 07:08:04 PM EDT [facility] NegativeNo interferon-gamma response to M.tuberculosisantigens was detected. Infection withM. tuberculosis is unlikely. A single negativeresult does not exclude infection with M. TB.In patients at high risk for M. tuberculosisinfection, a 2nd test should be consideredin accordance with [id number] ATS/IDSA/CDC Clinical Practice Guidelinesfor Diagnosis of Tuberculosis in Adults andChildren [Karla DM et. al. Clin Infec.[id number] 64(2):111-115] Name Value Range Interpretation Code Description Data Gay rce(s) Supporting Document(s) Albumin [Mass/volume] in Serum or Plasma by Bromocresol green (BCG) dye binding method 4.4 g/dL 3.5-5.2 [facility] Bilirubin.total [Mass/volume] in Serum or Plasma 0.6 mg/dL <1.2 [facility] Calcium [Mass/volume] in Serum or Plasma 9.3 mg/dL 8.6-10.0 [facility] Chloride [Moles/volume] in Serum or Plasma 101 mmol/L 98-107 [facility] Creatinine [Mass/volume] in Serum or Plasma 0.73 mg/dL 0.50-0.90 [facility] Glucose [Mass/volume] in Serum or Plasma 81 mg/dL 70-140 [facility] Alkaline phosphatase [Enzymatic activity/volume] in Serum or Plasma 57 U/L 35-104 [facility] Potassium [Moles/volume] in Serum or Plasma 3.6 mmol/L 3.4-5.1 [facility] Protein [Mass/volume] in Serum or Plasma 7.7 g/dL 6.4-8.3 [facility] Sodium [Moles/volume] in Serum or Plasma 137 mmol/L 136-145 [facility] Aspartate aminotransferase [Enzymatic activity/volume] in Se rum or Plasma 9 U/L <32 [facility] Urea nitrogen [Mass/volume] in Serum or Plasma 9 mg/dL 6-20 [facility] Osmolality of Serum or Plasma by calculation 282 mosm/kg 275-300 [facility] Creatinine/Urea nitrogen [Mass Ratio] in Serum or Plasma 12 [facility] Bicarbonate [Moles/volume] in Serum 24 mmol/L 22-29 [facility] Alanine aminotransferase [Enzymatic activity/volume] in Seru m or Plasma 9 U/L <33 [facility] Anion gap 3 in Serum or Plasma 13 mmol/L 8-15 [facility] Albumin/Globulin [Mass Ratio] in Serum or Plasma 1.3 [facility] Glomerular filtration rate/1.73 sq M pre dicted among non-blacks [Volume Rate/Area] in Serum or Plasma by Creatinine-based formula (MDRD) >6 0 [facility] Glomerular filtration rate/1.73 sq M pre dicted among blacks [Volume Rate/Area] in Serum or Plasma by Creatinine-based formula (MDRD) >60 [facility] ID Date Data Source [id number] 10/19/2019 11:02:13 AM EDT [facility] NegativeNo interferon-gamma response to M.tuberculosisantigens was detected. Infection withM. tuberculosis is unlikely. A single negativeresult does not exclude infection with M. TB.In patients at high risk for M. tuberculosisinfection, a 2nd test should be consideredin accordance with [id number] ATS/IDSA/CDC Clinical Practice Guidelinesfor Diagnosis of Tuberculosis in Adults andChildren [Lewinsbennyn DM et. al. Clin Infec.[id number] 64(2):111-115] Name Value Range Interpretation Code Description Data Gay rce(s) Supporting Document(s) Sjogrens syndrome-A extractable nuclear Ab [Units/volume] in Serum by Immunofluorescence 31 [AU]/mL 0-99 [facility] Sjogrens syndrome-B extractable nuclear Ab [Units/volume] in Serum by Immunofluorescence 21 [AU]/mL 0-99 [facility] Snow extractable nuclear Ab [Units/volume] in Serum b y Immunofluorescence 19 [AU]/mL 0-99 [facility] Ribonucleoprotein extractable nuclear Ab [Units/volume] in Serum by Immunofluorescence 37 U/ML 0-99 [facility] SCL-70 extractable nuclear Ab [Units/volume] in Serum 16 [AU]/mL 0-99 [facility] Jesusita-1 extractable nuclear Ab [Units/volume] in Serum by Immunofluorescence 15 [AU]/mL -[address] [place] [address] DNA double strand Ab [Units/volume] in Serum by Immunofluore scence 9 [IU]/mL -[address] [place] [address] Centromere Ab [Units/volume] in Serum 8 [AU]/mL -[address] [place] [address] Histone IgG Ab [Units/volume] in Serum 17 [AU]/mL 0-[address] [place] [address] ID Date Data Source [id number] 10/19/2019 02:15:24 PM EDT [facility] NegativeNo interferon-gamma response to M.tuberculosisantigens was detected. Infection withM. tuberculosis is unlikely. A single negativeresult does not exclude infection with M. TB.In patients at high risk for M. tuberculosisinfection, a 2nd test should be consideredin accordance with [id number] ATS/IDSA/CDC Clinical Practice Guidelinesfor Diagnosis of Tuberculosis in Adults andChildren [Lewinsohn DM et. al. Clin Infec.Hfy9653 64(2):111-115] Name Value Range Interpretation Code Description Data Gay rce(s) Supporting Document(s) Neutrophil cytoplasmic Ab [Presence] in Serum by Immunofluoresce nce Negative [facility] ID Date Data Source [id number] 10/20/2019 11:26:46 AM [facility] NegativeNo interferon-gamma response to M.tuberculosisantigens was detected. Infection withM. tuberculosis is unlikely. A single negativeresult does not exclude infection with M. TB.In patients at high risk for M. tuberculosisinfection, a 2nd test should be consideredin accordance with [id number] ATS/IDSA/CDC Clinical Practice Guidelinesfor Diagnosis of Tuberculosis in Adults andChildren [Valenteohn FEROZ et. al. Clin Infec.Orb9301 64(2):111-115] Name Value Range Interpretation Code Description Data Gay rce(s) Supporting Document(s) Myeloperoxidase Ab [Units/volume] in Serum by Immunoassay <20.0 [facility] Negative ID Date Data Source [id number] 10/20/2019 11:26:46 AM [facility] NegativeNo interferon-gamma response to M.tuberculosisantigens was detected. Infection withM. tuberculosis is unlikely. A single negativeresult does not exclude infection with M. TB.In patients at high risk for M. tuberculosisinfection, a 2nd test should be consideredin accordance with [id number] ATS/IDSA/CDC Clinical Practice Guidelinesfor Diagnosis of Tuberculosis in Adults andChildren [Valenteohdeidra REDMAN et. al. Clin Infec.[id number] 64(2):111-115] Name Value Range Interpretation Code Description Data Gay rce(s) Supporting Document(s) Proteinase 3 Ab [Units/volume] in Serum by Immunoassay <20 .0 [facility] Negative ID Date Data Source [id number] 10/20/2019 11:29:06 AM EDT [facility] NegativeNo interferon-gamma response to M.tuberculosisantigens was detected. Infection withM. tuberculosis is unlikely. A single negativeresult does not exclude infection with M. TB.In patients at high risk for M. tuberculosisinfection, a 2nd test should be consideredin accordance with [id number] ATS/IDSA/CDC Clinical Practice Guidelinesfor Diagnosis of Tuberculosis in Adults andChildren [Karla REDMAN et. al. Clin Infec.Ymq6259 64(2):111-115] Name Value Range Interpretation Code Description Data Gay rce(s) Supporting Document(s) Mycobacterium tuberculosis stimulated gamma interferon [Units/volume] in Blood 0.00 [IU]/mL [facility] 0.00 Mitogen stimulated gamma interferon [Units/volume] in Blood [facility] Gamma interferon background [Units/volume] in Blood by Immun oassay 0.03 [IU]/mL [facility] Procedure Social History Code Duration Value Status Description Data Source(s ) Alcohol intake 12/09/2019 12:00:00 AM EDT Current drinker of al cohol (finding) completed Current drinker of alcohol (finding) [facility] Cigarettes smoked current (pack per day) - Reported 12/09/19 12:00:00 AM EDT UNK completed [facility] Smoking 12/09/2019 12:00:00 AM EDT Current some day smoker com pleted Current some day smoker [facility] Alcohol intake 11/28/2019 12:00:00 AM EDT Current drinker of al cohol (finding) completed Current drinker of alcohol (finding) [facility] Cigarettes smoked current (pack per day) - Reported 11/28/19 12:00:00 AM EDT UNK completed [facility] Smoking 11/28/2019 12:00:00 AM EDT Current some day smoker com pleted Current some day smoker [facility] Alcohol intake 11/11/2019 12:00:00 AM EDT Current drinker of al cohol (finding) completed Current drinker of alcohol (finding) [facility] Cigarettes smoked current (pack per day) - Reported 11/11/19 12:00:00 AM EDT UNK completed [facility] Smoking 11/11/2019 12:00:00 AM EDT Current some day smoker com pleted Current some day smoker [facility] Alcohol intake 11/01/2019 12:00:00 AM EDT Current drinker of al cohol (finding) completed Current drinker of alcohol (finding) [facility] Cigarettes smoked current (pack per day) - Reported 11/01/19 12:00:00 AM EDT UNK completed [facility] Smoking 11/01/2019 12:00:00 AM EDT Current every day smoker co mpleted Current every day smoker [facility] Alcohol intake 10/18/2019 12:00:00 AM EDT Current drinker of al cohol (finding) completed Current drinker of alcohol (finding) [facility] Cigarettes smoked current (pack per day) - Reported 10/18/19 12:00:00 AM EDT UNK completed [facility] Smoking 10/18/2019 12:00:00 AM EDT Current every day smoker co mpleted Current every day smoker [facility] Vital Signs ID Date Data Source [id number] 11/16/2019 11:26:18 AM EDT [facility] Name Value Range Interpretation Code Description Data Source(s) WEIGHT RECORDED 158.2 lb 158.2 lb [facility] Body height Measured 68.11 in 68.11 in [facility] ID Date Data Source [id number] 11/28/2019 10:00:04 PM EDT [facility] Name Value Range Interpretation Code Description Data Source(s) WEIGHT RECORDED 161.4 lb 161.4 lb [facility] Body height Measured 68.11 in 68.11 in [facility] Patient Treatment Plan of Care Planned Activity Planned Date Details Description Data Source (s) Proparacaine hydrochloride 5 MG/ML Ophthalmic Solution 11/01/2019 02:15:00 PM EDT [facility]
[2020-07-12 16:42] LABS: ERYTHROCYTE SEDIMENTATION RATE 17 mm/hr (0-20)
[2020-07-12] MEDS ORDERED: diphenhydrAMINE 50MG/ML VIAL (J1200) IV ONE (17:15)
[2020-07-12] MEDS ORDERED: KETOROLAC 30 MG/ML 1ML VIAL IV ONE (17:15)
[2020-07-12] MEDS ORDERED: NS 1,000 ML IV ONE (17:15)
[2020-07-12] MEDS ORDERED: FLUORESCEIN OPHTH 1 MG STRIP OS ONE (17:15)
[2020-07-12] MEDS ORDERED: METOCLOPRAMIDE INJ 10MG/2ML VIAL (J2765 PER 1) IV ONE (17:15)
[2020-07-12] MEDS ORDERED: TETRACAINE 0.5% OPHTH SOLN 4ML OS ONE (17:15)
[2020-07-12 18:35] VITALS: BP 115/67
--- NOTE | 2020-07-13 20:10 | ED PDOC ---
Post-Departure Follow-Up called patient to see how she was doing. Patient reports a "migraine headache" a nd occasional intermittent blurred vision b/l. Pt states headaches improves with tylenol. 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 Advised the patient to return to the ED for further evaluation if she was still having symptoms. Patient states she is out of town. Advised patient to go to nearest ED for further evaluation. Patient expressed good understanding. HUSAM DIAZ TAYLOR E. PA-C Jul 13, 2020 20:10
== END 2020-07-12 19:32 | disposition home or self-care (01) ==
LOC: M ED 14:50
DX: G43.909 Migraine, unspecified, not intractable, without status migrainosus (principal); F41.9 Anxiety disorder, unspecified; F32.9 Major depressive disorder, single episode, unspecified
CPT/HCPCS: 36415; 80047; 85025; 85652; 86140; 96361; 96374; 96375; 99284; J1200; J1885; J2765